=== PATIENT | female | born 1940 | race Caucasian/White ===

== ENCOUNTER → 2016-06-25 | Outpatient (CLI) | payer MEDICARE ==
[~2016-06-25] MED LIST: ACHD5005 PO; ACYC400T PO; ACYC400T21 PO; ALBU2.5V4 IH; ALPR0.254 PO; AMOX1TAB11 PO; AMOX500T2 PO; APIX2.5T PO; ASP81TEC PO; ASPI-587 PO; AZTH250C PO; BETH10TA PO; BMT1T PO; CALC-857 PO; CALC0.5C2 PO; CARV3.122 PO; CARV3.12T PO; CARV6.252 PO; CEFD300C3 PO; CHOL10003 PO; CLIN-81 PO; CLON0.1T PO; CLOP75TA28 PO; CRESTOR40 MG PO; CRV6.25T PO; DCS100C PO; DEXA4TAB PO; DILT120T11 PO; DILT180C54 PO; DILT240C54 PO; DXCC100C PO; EVER5TAB PO; EVER7.5T PO; EXEM25TA4 PO; FERR-57 PO; FULV250D2 IM; FURO20TA4 PO; FURO40SO5 PO; FURO40TA4 PO; GLIM2TAB PO; HYDR-3062 PO; HYDR-3714 PO; HYDR-3812 PO; HYDR-700 PO; HYDR1TAB66 PO; IRBE300T9 PO; ISOS30TA3 PO; LACT20SO2 PO; LEVO25TA5 PO; LINA5TAB PO; LISI5TAB PO; LORA10TA7 PO; LOSA100T7 PO; LVT.025T PO; MAGN250T35 PO; MAGN250T7 PO; MAGN400C PO; METO-333 PO; NCT14P TD; NICO1PAT5 TD; NITR0.4T SL; NITR0.4T39 SL; OMEP20CA12 PO; ONDA4TAB2 PO; ONDA8TAB12 PO; ONDA8TAB2 PO; ORPH100T PO; PALB125C PO; PALB75CA PO; PANT40TA PO; PANT40TA3 PO; POLY119P5 PO; POTA10TA6 PO; PRD10T PO; PRD5T PO; ROSU20TA PO; ROSU20TA14 PO; ROSU20TA28 PO; RT-ALBUINH IH; SEVE800T7 PO; SIMV40TA4 PO; SITA50TA PO; SLMFT1E INH; SODI88SP5 NS; TIMO5DRO5 OD; TIOT18CA IH; TIOT18CA2 IH; TML.25OP OD; TML.25OP OP; TRM50T PO; VERA80TA2 PO; [UNRECOGNIZED DRUG - CODE] TD
--- NOTE | 2016-06-25 15:53 | Diagnostic Imaging Report ---
PA and lateral views of the chest. COMPARISON: 05/06/2016. INDICATION: Cough and shortness of breath. COMPARISON: 05/06/2016. FINDINGS: The lungs are hyperinflated. There are diffuse interstitial thickened markings and pleural thickening in the bases and the left lung apex, stable from 05/06/2016 exam. The heart size is at the upper limits of normal. No definite superimposed airspace consolidation or new effusion identified. There is an infusion port with the tip at the upper right atrium level. Surgical clips in the left axilla seen. IMPRESSION: Chronic appearing interstitial thickening and pleural scarring most prominent in the left apex and the lung bases. Possible small pleural effusions also present. No definitive acute finding. Dictated by: Dictated on workstation # [id number]
== END ==
LOC: RAD 12:38
PROVIDERS: ATTEND Internal Medicine
DX: R05 Cough (principal); R06.02 Shortness of breath
CPT/HCPCS: 71020

== ENCOUNTER → 2016-06-25 | Outpatient (CLI) | payer MEDICARE ==
[2016-06-25 14:56] LABS: BASOPHILS % (AUTO) 1 % (0-10); EOSINOPHILS % (AUTO) 1 % (0-10); LYMPHOCYTES # (AUTO) 0.8 X 10^3 (1.0-4.0); LYMPHOCYTES % (AUTO) 24 % (12-44); MEAN CORPUSCULAR HEMOGLOBIN 31 PG (25-34); MEAN CORPUSCULAR HGB CONC 34 G/DL (32-36); MEAN CORPUSCULAR VOLUME 91 FL (80-99); MONOCYTES # (AUTO) 0.4 X 10^3 (0.0-1.0); MONOCYTES % (AUTO) 12 % (0-12); NEUTROPHILS % (AUTO) 62 % (42-75); PLATELET COUNT 144 10^3/uL (130-400); RED BLOOD COUNT 3.06 10^6/uL (4.35-5.85); RED CELL DISTRIBUTION WIDTH 18.2 % (10.0-14.5); WHITE BLOOD COUNT 3.2 10^3/uL (4.3-11.0)
[2016-06-25 15:32] LABS: CALCIUM 8.4 MG/DL (8.5-10.1); CREATININE SERUM 2.78 MG/DL (0.60-1.30); POTASSIUM 4.6 MMOL/L (3.6-5.0)
== END ==
LOC: LAB 14:23
PROVIDERS: ATTEND Internal Medicine
DX: I12.9 Hypertensive chronic kidney disease with stage 1 through stage 4 chronic kidney disease, or unspecified chronic kidney disease (principal); N18.4 Chronic kidney disease, stage 4 (severe); R05 Cough; R53.83 Other fatigue
CPT/HCPCS: 36591; 80048; 85025

== ENCOUNTER → 2016-07-05 | Outpatient (CLI) | payer MEDICARE ==
[2016-07-05 14:13] LABS: MEAN PLATELET VOLUME 8.6 FL (7.4-10.4); RED BLOOD COUNT 2.83 10^6/uL (4.35-5.85); RED CELL DISTRIBUTION WIDTH 17.9 % (10.0-14.5); WHITE BLOOD COUNT 4.3 10^3/uL (4.3-11.0)
[2016-07-05 14:57] LABS: ALBUMIN 3.3 G/DL (3.2-4.5); CALCIUM 8.5 MG/DL (8.5-10.1); CREATININE SERUM 2.84 MG/DL (0.60-1.30); PHOSPHORUS 3.6 MG/DL (2.3-4.7); POTASSIUM 4.7 MMOL/L (3.6-5.0)
[2016-07-05 15:00] LABS: PROTEIN/CREATININE RATIO 4.6
[2016-07-07 07:44] LABS: CALCIUM PARA THYROID HORMONE 8.5 mg/dL (8.5-10.5)
== END ==
LOC: LAB 13:34
PROVIDERS: ATTEND Internal Medicine Nephrology
DX: N18.4 Chronic kidney disease, stage 4 (severe) (principal); R73.01 Impaired fasting glucose; C50.919 Malignant neoplasm of unspecified site of unspecified female breast; E78.5 Hyperlipidemia, unspecified; N25.0 Renal osteodystrophy
CPT/HCPCS: 36415; 36591; 80061; 80069; 82306; 82570; 83036; 83970; 84156; 85027

== ENCOUNTER 2016-07-11 10:14 | Outpatient (RCR) | payer MEDICARE ==
[2016-04-25 11:50] LABS: BASOPHILS % (AUTO) 0 % (0-10); EOSINOPHILS % (AUTO) 2 % (0-10); LYMPHOCYTES # (AUTO) 0.6 X 10^3 (1.0-4.0); LYMPHOCYTES % (AUTO) 24 % (12-44); MEAN CORPUSCULAR HEMOGLOBIN 32 PG (25-34); MEAN CORPUSCULAR HGB CONC 33 G/DL (32-36); MEAN CORPUSCULAR VOLUME 96 FL (80-99); MEAN PLATELET VOLUME 9.1 FL (7.4-10.4); MONOCYTES # (AUTO) 0.5 X 10^3 (0.0-1.0); MONOCYTES % (AUTO) 19 % (0-12); NEUTROPHILS # (AUTO) 1.3 X 10^3 (1.8-7.8); NEUTROPHILS % (AUTO) 55 % (42-75); PLATELET COUNT 145 10^3/uL (130-400); RED BLOOD COUNT 2.43 10^6/uL (4.35-5.85); RED CELL DISTRIBUTION WIDTH 15.3 % (10.0-14.5); WHITE BLOOD COUNT 2.4 10^3/uL (4.3-11.0)
[2016-04-25 12:17] LABS: BILIRUBIN,TOTAL 0.4 MG/DL (0.1-1.0); CALCIUM 8.9 MG/DL (8.5-10.1); CREATININE SERUM 2.54 MG/DL (0.60-1.30); POTASSIUM 4.4 MMOL/L (3.6-5.0); TOTAL PROTEIN 5.6 G/DL (6.4-8.2)
[2016-05-14 13:39] LABS: BASOPHILS # (AUTO) 0.1 10^3/uL (0.0-0.1); BASOPHILS % (AUTO) 1 % (0-10); EOSINOPHILS % (AUTO) 1 % (0-10); LYMPHOCYTES # (AUTO) 0.9 X 10^3 (1.0-4.0); LYMPHOCYTES % (AUTO) 21 % (12-44); MEAN CORPUSCULAR HEMOGLOBIN 30 PG (25-34); MEAN CORPUSCULAR HGB CONC 33 G/DL (32-36); MEAN CORPUSCULAR VOLUME 92 FL (80-99); MEAN PLATELET VOLUME 9.8 FL (7.4-10.4); MONOCYTES # (AUTO) 0.4 X 10^3 (0.0-1.0); MONOCYTES % (AUTO) 9 % (0-12); NEUTROPHILS # (AUTO) 2.9 X 10^3 (1.8-7.8); NEUTROPHILS % (AUTO) 68 % (42-75); PLATELET COUNT 139 10^3/uL (130-400); RED BLOOD COUNT 4.11 10^6/uL (4.35-5.85); RED CELL DISTRIBUTION WIDTH 17.9 % (10.0-14.5); WHITE BLOOD COUNT 4.2 10^3/uL (4.3-11.0)
[2016-05-14 14:08] LABS: ALBUMIN 3.3 G/DL (3.2-4.5); CALCIUM 9.1 MG/DL (8.5-10.1); CREATININE SERUM 2.5 MG/DL (0.60-1.30); TOTAL PROTEIN 6.1 G/DL (6.4-8.2)
[2016-05-14 14:33] LABS: BILIRUBIN,TOTAL 0.4 MG/DL (0.1-1.0)
[2016-06-13 13:24] LABS: BASOPHILS % (AUTO) 1 % (0-10); EOSINOPHILS % (AUTO) 1 % (0-10); LYMPHOCYTES % (AUTO) 25 % (12-44); MEAN CORPUSCULAR HEMOGLOBIN 30 PG (25-34); MEAN CORPUSCULAR HGB CONC 33 G/DL (32-36); MEAN CORPUSCULAR VOLUME 91 FL (80-99); MEAN PLATELET VOLUME 9.2 FL (7.4-10.4); MONOCYTES # (AUTO) 0.3 X 10^3 (0.0-1.0); MONOCYTES % (AUTO) 7 % (0-12); NEUTROPHILS # (AUTO) 2.7 X 10^3 (1.8-7.8); NEUTROPHILS % (AUTO) 66 % (42-75); PLATELET COUNT 136 10^3/uL (130-400); RED BLOOD COUNT 3.22 10^6/uL (4.35-5.85); RED CELL DISTRIBUTION WIDTH 17.5 % (10.0-14.5); WHITE BLOOD COUNT 4.1 10^3/uL (4.3-11.0)
[2016-06-13 13:50] LABS: ALBUMIN 3.4 G/DL (3.2-4.5); BILIRUBIN,TOTAL 0.3 MG/DL (0.1-1.0); CALCIUM 8.7 MG/DL (8.5-10.1); CREATININE SERUM 3.09 MG/DL (0.60-1.30); POTASSIUM 4.4 MMOL/L (3.6-5.0); TOTAL PROTEIN 5.9 G/DL (6.4-8.2)
[~2016-07-11 10:14] MED LIST changes: +ACETAMINOPHEN 500 MG TAB (TYLENOL) CANCER CTR ONE; +FULVESTRANT 250 MG/5 ML SYR (CANCER CENTER) IM SCH; +NS (IVPB) CANCER CENTER 250 ML ONE; -POLY119P5 PO; +diphenhydrAMINE 25 MG TAB (BENADRYL) CANCER CENTER PO ONE
[2016-07-11 10:53] LABS: BASOPHILS # (AUTO) 0.1 10^3/uL (0.0-0.1); BASOPHILS % (AUTO) 2 % (0-10); EOSINOPHILS % (AUTO) 1 % (0-10); LYMPHOCYTES # (AUTO) 0.6 X 10^3 (1.0-4.0); LYMPHOCYTES % (AUTO) 21 % (12-44); MEAN CORPUSCULAR HGB CONC 33 G/DL (32-36); MEAN CORPUSCULAR VOLUME 94 FL (80-99); MEAN PLATELET VOLUME 9.2 FL (7.4-10.4); MONOCYTES # (AUTO) 0.3 X 10^3 (0.0-1.0); MONOCYTES % (AUTO) 11 % (0-12); NEUTROPHILS # (AUTO) 1.9 X 10^3 (1.8-7.8); NEUTROPHILS % (AUTO) 65 % (42-75); PLATELET COUNT 110 10^3/uL (130-400); RED BLOOD COUNT 2.66 10^6/uL (4.35-5.85); WHITE BLOOD COUNT 2.9 10^3/uL (4.3-11.0)
[2016-07-11 10:57] LABS: MEAN CORPUSCULAR HEMOGLOBIN 30 PG (25-34)
[2016-07-11] MEDS ORDERED: ACETAMINOPHEN 500 MG TAB (TYLENOL) CANCER CTR ONE (11:39)
[2016-07-11] MEDS ORDERED: diphenhydrAMINE 25 MG TAB (BENADRYL) CANCER CENTER PO ONE (11:39)
[2016-07-11] MEDS ORDERED: NS (IVPB) CANCER CENTER 250 ML ONE (11:39)
== END 2016-07-15 | disposition home or self-care (01) ==
LOC: ONC 10:14
PROVIDERS: ATTEND Internal Medicine Hematology & Oncology
DX: C79.51 Secondary malignant neoplasm of bone (principal); C78.7 Secondary malignant neoplasm of liver and intrahepatic bile duct; Z85.3 Personal history of malignant neoplasm of breast; J44.9 Chronic obstructive pulmonary disease, unspecified; I25.10 Atherosclerotic heart disease of native coronary artery without angina pectoris; I10 Essential (primary) hypertension; E78.5 Hyperlipidemia, unspecified; Z79.899 Other long term (current) drug therapy
CPT/HCPCS: 36430; 36591; 71250; 74176; 80048; 80053; 85025; 86300; 86850; 86900; 86901; 86920; 96402; 99213

== ENCOUNTER 2016-07-23 17:22 | Inpatient (IN) | payer MEDICARE ==
[~2016-07-23] VITALS: Ht 149.9 cm; Wt 50.1 kg
[~2016-07-23 17:22] MED LIST changes: -POLY119P5 PO
[2016-07-23 17:35] VITALS: BP 135/70
--- NOTE | 2016-07-23 17:40 | History & Physicial ---
History of Present Illness History of Present Illness Reason for visit/HPI Gabriella Day is a 76 year old lady who presented to cancer center with complaints of weakness, progressive cough, no fever and chronic but not increased dyspnea on 07/20/16. She also stated that she was having second thoughts about continuing on her current regimen of Faslodex and Ibrance. She had a Cat Scan Chest/abd/pelvis done today which showed bilteral lower lobe pneumonia. Patient states she was feeling so weak that she was going to have her family bring her to Emergency Dept later today if we had not called her to come in. Date of Admission Jul 23, 2016 at 17:24 I consulted on this patient on 07/23/16 17:40 Attending Physician Radha Fox MD Admitting Physician Cindy Quintana MD Consult Allergies and Home Medications Allergies Coded Allergies: ibuprofen (Verified Allergy, Intermediate, RASH, 04/04/15) allopurinol (Verified Allergy, Mild, 05/06/16) piperacillin (Verified Allergy, Mild, 05/06/16) tazobactam (Verified Allergy, Mild, 05/06/16) Home Medications Albuterol Sulfate 8.5 Gm Hfa.aer.ad 2 PUFF IH Q6H PRN PRN SHORTNESS OF BREATH ( Reported) Albuterol Sulfate 8.5 Gm Hfa.aer.ad 1-2 PUFF IH EVERY 4-6 HOURS PRN PRN SHORTNESS OF BREATH (Reported) Alprazolam 0.25 Mg Tablet 0.25 MG PO Q4H PRN PRN ANXIETY (Reported) Apixaban 2.5 Mg Tablet #30 2.5 MG PO BID Prescribed by: DESTINI MOREL on 05/10/16 1019 Calcitriol 0.5 Mcg Capsule 0.5 MCG PO DAILY (Reported) LAST FILLED 03/08/16 #30 Docusate Sodium 100 Mg Cap 200 MG PO EVERY 4-6 HOURS PRN PRN CONSTIPATION ( Reported) TAKES 2 (100MG) CAPSULES Fulvestrant 250 Mg/5 Ml Syringe 500 MG IM MONTHLY (Reported) Furosemide 40 Mg Tablet #30 40 MG PO DAILY Prescribed by: CINDY QUINTANA on 05/09/16 0842 Hydrocodone/Acetaminophen 1 Each Tablet 1 TAB PO Q4H PRN PRN PAIN (Reported) Levothyroxine Sodium 25 Mcg Tablet 25 MG PO DAILY (Reported) Magnesium Oxide 250 Mg Tablet 250 MG PO DAILY (Reported) Nitroglycerin 0.4 Mg Tab.subl 0.4 MG SL UD PRN PRN CHEST PAIN (Reported) Ondansetron HCl 8 Mg Tablet 8 MG PO Q8H PRN PRN NAUSEA/VOMITING (Reported) Palbociclib 125 Mg Capsule 125 MG PO DAILY (Reported) Take once daily for 21 days, off 7 then repeat Pantoprazole Sodium 40 Mg Tablet.dr 40 MG PO DAILY (Reported) Rosuvastatin Calcium 20 Mg Tablet 20 MG PO DAILY (Reported) LAST FILLED 03/08/16 #30 Sevelamer Carbonate 800 Mg Tablet 800 MG PO TID (Reported) LAST FILLED 03/08/16 #90 Timolol Maleate 5 Ml Drops 1 DROP OD BID (Reported) Tiotropium [place] 1 Inh Aerp 1 PUFF IH DAILY (Reported) LAST FILLED 03/08/16 #30 Past Whbvrfp-Ngbdoy-Dxlnae Hx Patient Social History Smoking Status: Former Smoker Former smoker/When Quit: Sep 08, 2012 Type Used: Cigarettes Recent Hopitalizations: Yes (Sapna Kern 3 weeks ago- blood transfusion.) Immunizations Up To Date Tetanus Booster (TDap): Unknown Date of Pneumonia Vaccine: Mar 10, 2015 Date of Influenza Vaccine: Feb 23, 2016 Seasonal Allergies Seasonal Allergies: No Surgeries HX Surgeries: Yes Surgeries: Breast, Eye Surgery Respiratory Hx Respiratory Disorders: Yes Respiratory Disorders: COPD Cardiovascular Hx Cardiovascular Disorders: Yes (CHF) Cardiac Disorders: Chronic Edema/Swelling, High Cholesterol, Hypertension Neurological Hx Neurological Disorders: No Reproductive System Hx Reproductive Disorders: No Sexually Transmitted Disease: No HIV/AIDS: No Female Reproductive Disorders: Denies Genitourinary Hx Genitourinary Disorders: Yes Genitourinary Disorders: Renal Failure, UTI-Chronic Gastrointestinal Hx Gastrointestinal Disorders: Yes Gastrointestinal Disorders: Gastroesophageal Reflux, Chronic Constipation, Hemorrhoids, Irritable Bowel Musculoskeletal Hx Musculoskeletal Disorders: Yes (LYMPHEDEMA OF LEFT ARM. ) Musculoskeletal Disorders: Arthritis Endocrine Hx Endocrine Disorders: Yes Endocrine Disorders: Hypothyroidsim HEENT HX ENT Disorders: Yes (BILATERAL CATARACT REMOVAL WITH PERSISTENT POOR VISION IN RIGHT EYE) HEENT Disorders: Cataract, Glaucoma Loss of Vision: Denies Hearing Impairment: Denies Cancer Hx Cancer: Yes Cancer: Lung, Breast Psychosocial Hx Psychiatric Problems: Yes Behavioral Health Disorders: Anxiety Integumentary HX Skin/Integumentary Disorder: No Blood Transfusions Hx Blood Disorders: Yes Adverse Reaction to a Blood Tr: No Family Medical History Significant Family History: Heart Disease, CAD Over 55 Years Old Family Hx: Abdominal aortic aneurysm 09 SISTER Arthritis 09 SISTER Asthma son Cardiovascular disease 03 FATHER 03 MOTHER 09 SISTER Completed stroke Congestive heart failure 03 FATHER 03 MOTHER Family history: Arthritis 09 SISTER Family history: Diabetes mellitus 03 FATHER (POSSIBLY) Family history: Hypertension 03 FATHER 03 MOTHER History of - anemia 09 SISTER Hypercholesterolemia 03 FATHER 03 MOTHER 09 SISTER Hypertension son Myocardial infarction 03 FATHER 03 MOTHER 09 SISTER Neoplasm 09 BROTHER 09 SISTER Severe allergy son No Family History of: AIDS Laclede's disease Alcoholism Alzheimer's disease Aphasia Cancer of mouth Cataracts Colon cancer Congenital disease Congenital heart disease Coronary thrombosis Cystic fibrosis Deafness or hearing loss Dementia Diabetes mellitus Drug abuse Dysphasia Fibrocystic disease of breast Gastroenteritis Glaucoma Headache disorder Hypercholesterolemia Infertility Kidney disease Not obtainable due to adoption Osteoporosis Parkinson's disease Prostate cancer Psychosocial problem Respiratory disorder Seizure disorder Thyroid disease Tuberculosis Visual disorder Constitutional: see HPI malaise weakness Respiratory: cough dyspnea on exertion phlegm (clear phlegm) short of breath Musculoskeletal: joint pain other (chronic lymphedema LUE) Physical Exam Vital Signs Vital Sign - Last 12Hours 07/23/16 17:35 Temp 99.8 Pulse 85 Resp 20 B/P 135/70 Pulse Ox 92 O2 Delivery Nasal Cannula O2 Flow Rate 3.00 Capillary Refill : General Appearance: Chronically ill HEENT: PERRL/EOMI Neck: Non Tender Supple Respiratory: Decreased Breath Sounds (few bibasilar crackles) Cardiovascular: Regular Rate, Rhythm No JVD Gastrointestinal: Normal Bowel Sounds No Organomegaly Non Tender Soft Rectal: Deferred Back: Normal Inspection No CVA Tenderness Extremity: Swelling (LUE lymphedema) Neurologic/Psychiatric: Alert Oriented x3 No Motor/Sensory Deficits Assessment/Plan Assessment and Plan 1. Pneumonia bilateral lower lobes; Start Levofloxacin and Vancomycin; She is allergic to piperacillin and tazobactam; 2. Metastatic Breast Cancer with mets to bones, lungs and pleura 3. CAD 4. Hypertension 5. Chronic Kidney disease 6. COPD 7. Consult Dr. Quintana, patient's PMD in am; RADHA FOX MD Jul 23, 2016 17:40
[2016-07-23] MEDS ORDERED: VANCOMYCIN IV ADD-VANTAGE 1,000 MG in SODIUM CHLORIDE (ADD-VANTAGE) 250 ML IV NR (18:00)
--- NOTE | 2016-07-23 18:02 | Diagnostic Imaging Report ---
INDICATION: Pneumonia, difficulty breathing. Comparison is made with prior examination from 06/25/16. FINDINGS: The heart size is stable. There is bilateral airspace disease. Some underlying central pulmonary venous congestion cannot be excluded. There are bilateral pleural effusions. There is no pneumothorax. IMPRESSION: Diffuse bilateral airspace disease with small bilateral pleural effusions. Some underlying central pulmonary venous congestion cannot be excluded. Dictated by: Dictated on workstation # [id number]
[2016-07-23] MEDS: CATHETER FLUSH 10 ML SYR IV PRN (18:29)
[2016-07-23] MEDS: NS IV 1000 ML 1,000 ML IV SCH (18:30)
[2016-07-23 19:49] VITALS: BP 124/53
[2016-07-23] MEDS ORDERED: LEVOFLOXACIN 750 MG/150 ML IV 150 ML IV NR (20:00)
[2016-07-23 21:00] LABS: BASOPHILS % (AUTO) 1 % (0-10); EOSINOPHILS # (AUTO) 0.1 10^3/uL (0.0-0.3); EOSINOPHILS % (AUTO) 2 % (0-10); LYMPHOCYTES # (AUTO) 0.7 X 10^3 (1.0-4.0); LYMPHOCYTES % (AUTO) 19 % (12-44); MEAN CORPUSCULAR HEMOGLOBIN 31 PG (25-34); MEAN CORPUSCULAR HGB CONC 33 G/DL (32-36); MEAN CORPUSCULAR VOLUME 93 FL (80-99); MEAN PLATELET VOLUME 9.1 FL (7.4-10.4); MONOCYTES # (AUTO) 0.3 X 10^3 (0.0-1.0); MONOCYTES % (AUTO) 9 % (0-12); NEUTROPHILS # (AUTO) 2.4 X 10^3 (1.8-7.8); NEUTROPHILS % (AUTO) 69 % (42-75); PLATELET COUNT 231 10^3/uL (130-400); RED BLOOD COUNT 2.67 10^6/uL (4.35-5.85); RED CELL DISTRIBUTION WIDTH 16.4 % (10.0-14.5); WHITE BLOOD COUNT 3.5 10^3/uL (4.3-11.0)
[2016-07-23 21:16] LABS: ALBUMIN 2.8 G/DL (3.2-4.5); BILIRUBIN,TOTAL 0.2 MG/DL (0.1-1.0); CALCIUM 8.1 MG/DL (8.5-10.1); CREATININE SERUM 2.67 MG/DL (0.60-1.30); MAGNESIUM 1.7 MG/DL (1.8-2.4); POTASSIUM 4.5 MMOL/L (3.6-5.0); TOTAL PROTEIN 5.6 G/DL (6.4-8.2)
[2016-07-23] MEDS ORDERED: FURO40TA4 PO (21:44)
[2016-07-23] MEDS ORDERED: FULVESTRANT IM SCH (21:58)
[2016-07-23] MEDS: SEVELAMER CARBONATE 800 MG PO SCH (21:58)
[2016-07-23] MEDS ORDERED: NON-FORMULARY MEDICATION 1 EA EA (Magnesium Oxide 250 MG) PO SCH (21:58)
[2016-07-23] MEDS ORDERED: CALCITRIOL 0.5 MCG PO SCH (21:58)
[2016-07-23] MEDS ORDERED: RX-HYDROCODONE/APAP 5/325 MG #4 TAB PK PO PRN (22:00)
[2016-07-23] MEDS ORDERED: RX-ALBUTEROL INHALER (VENTOLIN HFA) 18 GM IH PRN ×2 (22:00)
[2016-07-23] MEDS ORDERED: NITROGLYCERIN SUBLINGUAL 0.4 MG TAB (NITROSTAT) SL PRN (22:00)
[2016-07-23] MEDS ORDERED: DOCUSATE SODIUM 100 MG (COLACE) CAP PO PRN (22:00)
[2016-07-23] MEDS ORDERED: HYDROcodone/APAP 5 MG/325 MG (LORTAB) TAB ONE (22:19)
[2016-07-23] MEDS ORDERED: RT-ALBUTEROL SULF 2.5 MG/3 ML PRE-MIX VIAL INH PRN (22:45)
[2016-07-23 23:09] VITALS: BP 128/69
[2016-07-23 23:15] LABS: BILIRUBIN,URINE NEGATIVE (NEGATIVE); KETONES,URINE NEGATIVE (NEGATIVE); LEUKOCYTE ESTERASE ,URINE 3+ (NEGATIVE); NITRITE,URINE NEGATIVE (NEGATIVE); PH,URINE 6.5 (5-9); PROTEIN,URINE 3+ (NEGATIVE); UROBILINOGEN,URINE NORMAL (NORMAL)
[2016-07-23 23:24] LABS: SQUAMOUS EPITHELIAL CELL,UR 0-2 /HPF; WBC,URINE 25-50 /HPF
[2016-07-24 03:14] VITALS: BP 115/58
[2016-07-24 05:06] LABS: BASOPHILS % (AUTO) 1 % (0-10); EOSINOPHILS % (AUTO) 1 % (0-10); LYMPHOCYTES # (AUTO) 0.5 X 10^3 (1.0-4.0); LYMPHOCYTES % (AUTO) 17 % (12-44); MEAN CORPUSCULAR HEMOGLOBIN 31 PG (25-34); MEAN CORPUSCULAR HGB CONC 33 G/DL (32-36); MEAN CORPUSCULAR VOLUME 93 FL (80-99); MEAN PLATELET VOLUME 8.6 FL (7.4-10.4); MONOCYTES # (AUTO) 0.3 X 10^3 (0.0-1.0); MONOCYTES % (AUTO) 11 % (0-12); NEUTROPHILS # (AUTO) 1.9 X 10^3 (1.8-7.8); NEUTROPHILS % (AUTO) 70 % (42-75); PLATELET COUNT 212 10^3/uL (130-400); RED BLOOD COUNT 2.53 10^6/uL (4.35-5.85); RED CELL DISTRIBUTION WIDTH 16.6 % (10.0-14.5); WHITE BLOOD COUNT 2.8 10^3/uL (4.3-11.0)
[2016-07-24 05:22] LABS: CALCIUM 8.1 MG/DL (8.5-10.1); CREATININE SERUM 2.53 MG/DL (0.60-1.30); POTASSIUM 4.7 MMOL/L (3.6-5.0)
[2016-07-24 08:00] VITALS: BP 132/69
[2016-07-24] MEDS ORDERED: RT-ALBUTEROL SULF 2.5 MG/3 ML PRE-MIX VIAL INH SCH (08:00)
[2016-07-24] MEDS: PANTOPRAZOLE 40 MG (PROTONIX) TAB PO SCH (08:44)
[2016-07-24] MEDS: LEVOTHYROXINE 25 MCG (LEVOTHROID) TAB PO SCH (08:46)
[2016-07-24] MEDS ORDERED: FUROSEMIDE 40 MG (LASIX) TAB PO SCH (09:00)
[2016-07-24] MEDS: TIMOLOL MALEATE 0.5% 5 ML (TIMOPTIC) BTL OD SCH ×2 (09:00→20:31)
[2016-07-24] MEDS ORDERED: APIXABAN 2.5 MG (ELIQUIS) TABLET PO SCH (09:00)
[2016-07-24] MEDS ORDERED: ROSUVASTATIN 20 MG (CRESTOR) TABLET PO SCH (09:00)
--- NOTE | 2016-07-24 09:10 | Progress Note (SOAP) ---
Subjective Subjective/Events-last exam She complains of continue fatigue and report some hemorrhoidal bleeding; Eliquis is being held and we will recheck her hemoglobin this afternoon. Objective Exam Vital Signs Date Time Temp Pulse Resp B/P Pulse Ox O2 Delivery O2 Flow Rate FiO2 07/24/16 07:02 90 3.00 07/24/16 03:14 96.3 80 20 115/58 95 Nasal Cannula 3.00 07/23/16 23:09 97.9 87 16 128/69 95 Nasal Cannula 3.00 07/23/16 22:49 93 3.00 07/23/16 21:00 95 Nasal Cannula 3.00 07/23/16 19:49 98.8 83 16 124/53 98 Room Air 07/23/16 18:53 Nasal Cannula 3.00 07/23/16 17:35 99.8 85 20 135/70 92 Nasal Cannula 3.00 I & O 07/24/16 07:00 Intake Total 740 ml Output Total 650 ml Balance 90 ml Capillary Refill : Less Than 3 Seconds General Appearance: Chronically ill HEENT: PERRL/EOMI Pale Conjunctivae (R) Respiratory: Crackles Other (bibasilar crackles.) Cardiovascular: Regular Rate, Rhythm No JVD Gastrointestinal: normal bowel sounds non tender soft Extremity: Normal Inspection Non Tender No Calf Tenderness Neurologic/Psychiatric: Alert Oriented x3 No Motor/Sensory Deficits Normal Mood/Affect cokeman II-XII Norm as Tested Results Lab Laboratory Tests 07/23/16 20:45 07/24/16 05:00 Laboratory Tests 07/23/16 18:02: Lactic Acid Level 1.6 07/23/16 20:45: Alanine Aminotransferase (ALT/SGPT) 8, Albumin 2.8L, Alkaline Phosphatase 59, Anion Gap 9, Aspartate Amino Transf (AST/SGOT) 12, BUN/Creatinine Ratio 15, Basophils # (Auto) 0.0, Basophils (%) (Auto) 1, Blood Urea Nitrogen 40H, Calcium Level 8.1L, Carbon Dioxide Level 19L, Chloride Level 107, Creatinine 2.67H, Eosinophils # (Auto) 0.1, Eosinophils (%) (Auto) 2, Estimat Glomerular Filtration Rate 17, Glucose Level 101, Hematocrit 25L, Hemoglobin 8.2L, Lymphocytes # (Auto) 0.7L, Lymphocytes (%) (Auto) 19, Magnesium Level 1.7L, Mean Corpuscular Hemoglobin 31, Mean Corpuscular Hemoglobin Concent 33, Mean Corpuscular Volume 93, Mean Platelet Volume 9.1, Monocytes # (Auto) 0.3, Monocytes (%) (Auto) 9, Neutrophils # (Auto) 2.4, Neutrophils (%) (Auto) 69, Platelet Count 231, Potassium Level 4.5, Red Blood Count 2.67L, Red Cell Distribution Width 16.4H, Sodium Level 135, Total Bilirubin 0.2, Total Protein 5.6L, White Blood Count 3.5L 07/23/16 23:05: Urine Bacteria FEWH, Urine Bilirubin NEGATIVE, Urine Casts NONE, Urine Clarity CLEAR, Urine Color YELLOW, Urine Crystals NONE, Urine Culture Indicated YES, Urine Glucose (UA) NEGATIVE, Urine Ketones NEGATIVE, Urine Leukocyte Esterase 3+ H, Urine Mucus NEGATIVE, Urine Nitrite NEGATIVE, Urine Protein 3+H, Urine RBC NONE, Urine RBC (Auto) 1+H, Urine Specific [place] 1.010L, Urine Squamous Epithelial Cells 0-2, Urine Urobilinogen NORMAL, Urine WBC 25-50H, Urine pH 6.5 07/24/16 05:00: Anion Gap 9, BUN/Creatinine Ratio 15, Basophils # (Auto) 0.0, Basophils (%) ( Auto) 1, Blood Urea Nitrogen 39H, Calcium Level 8.1L, Carbon Dioxide Level 19L, Chloride Level 108H, Creatinine 2.53H, Eosinophils # (Auto) 0.0, Eosinophils (% ) (Auto) 1, Estimat Glomerular Filtration Rate 18, Glucose Level 96, Hematocrit 23L, Hemoglobin 7.8L, Lymphocytes # (Auto) 0.5L, Lymphocytes (%) (Auto) 17, Mean Corpuscular Hemoglobin 31, Mean Corpuscular Hemoglobin Concent 33, Mean Corpuscular Volume 93, Mean Platelet Volume 8.6, Monocytes # (Auto) 0.3, Monocytes (%) (Auto) 11, Neutrophils # (Auto) 1.9, Neutrophils (%) (Auto) 70, Platelet Count 212, Potassium Level 4.7, Red Blood Count 2.53L, Red Cell Distribution Width 16.6H, Sodium Level 136, White Blood Count 2.8L Assessment/Plan Assessment/Plan Assess & Plan/Chief Complaint 1. Pneumonia bilateral lower lobes; Continue Levofloxacin and Vancomycin; She is allergic to piperacillin and tazobactam; 2. Metastatic Breast Cancer with mets to bones, lungs and pleura 3. CAD 4. Hypertension 5. Chronic Kidney disease 6. COPD 7. Dr. Quintana's consultation noted and appreciated. Diagnosis/Problems: Clinical Quality Measures DVT/VTE Risk/Contraindication: Risk Factor Score Per Nursin RFS Level Per Nursing on Admit: 4+=Very High RADHA FOX MD Jul 24, 2016 09:10
[2016-07-24] MEDS: NS IV 1000 ML 1,000 ML IV SCH ×2 (09:26→10:24)
--- NOTE | 2016-07-24 10:34 | Consultation-Hospitalist ---
HPI History of Present Illness: HPI/Chief Complaint Mrs. Day is a frail 76-year-old white female who been feeling increasingly fatigued with shortness of breath progressively worse over the past several weeks. She is been on various forms of chemotherapy for the past several years for breast cancer widely metastatic to bone and lung currently on Faslodex and Ibrance. Over the past week sputum has become productive of brownish color with increased fatigue and anorexia. She underwent restaging CT chest abdomen and pelvis and was noted to have bibasilar pulmonary infiltrates compatible with pneumonia in addition to a qvecj-gb-aaragldv right pleural effusion. She also had a small left pleural effusion. She was admitted by her oncologist Dr. Andrews for treatment for presumed pneumonia. She is felt a little warm at times denies night sweats has had some occasional mild chills. She has not been around anyone that she is aware of who has been ill and reports no travel history. 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 She has a history of ischemic cardiomyopathy with chronic systolic heart failure and ejection fraction of 35 percent on last echocardiogram done in 2015. She has a history of paroxysmal atrial fibrillation as well as sick sinus syndrome but is particularly related to use of diltiazem and beta jay therapy. 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 Date Seen 07/24/16 Attending Physician Angela Andrews MD PCP Cindy Quintana MD Referring Physician Date of Admission Jul 23, 2016 at 17:24 Home Medications & Allergies Home Medications Reviewed patient Home Medication Reconciliation Form Allergies Coded Allergies: ibuprofen (Verified Allergy, Intermediate, RASH, 04/04/15) allopurinol (Verified Allergy, Mild, 05/06/16) piperacillin (Verified Allergy, Mild, 05/06/16) tazobactam (Verified Allergy, Mild, 05/06/16) Past Azdhtvy-Jlrkpt-Ynbgot Hx Patient Social History Alcohol Use: Denies Use Recreational Drug Use: No Smoking Status: Former Smoker Former smoker/When Quit: Sep 08, 2012 Type Used: Cigarettes Physical Abuse Screen: No Sexual Abuse: No Recent Foreign Travel: No Contact w/other who traveled: No Recent Hopitalizations: Yes (Sapna Kern 3 weeks ago- blood transfusion.) Recent Infectious Disease Expo: No Immunizations Up To Date Tetanus Booster (TDap): Unknown Date of Pneumonia Vaccine: Mar 10, 2015 Date of Influenza Vaccine: Feb 23, 2016 Seasonal Allergies Seasonal Allergies: No Surgeries HX Surgeries: Yes Surgeries: Breast, Eye Surgery Respiratory Hx Respiratory Disorders: Yes Respiratory Disorders: COPD Cardiovascular Hx Cardiovascular Disorders: Yes (CHF) Cardiac Disorders: Chronic Edema/Swelling, High Cholesterol, Hypertension Neurological Hx Neurological Disorders: No Reproductive System Hx Reproductive Disorders: No Sexually Transmitted Disease: No HIV/AIDS: No Female Reproductive Disorders: Denies Genitourinary Hx Genitourinary Disorders: Yes Genitourinary Disorders: Renal Failure, UTI-Chronic Gastrointestinal Hx Gastrointestinal Disorders: Yes Gastrointestinal Disorders: Gastroesophageal Reflux, Chronic Constipation, Hemorrhoids, Irritable Bowel Musculoskeletal Hx Musculoskeletal Disorders: Yes (LYMPHEDEMA OF LEFT ARM. ) Musculoskeletal Disorders: Arthritis Endocrine Hx Endocrine Disorders: Yes Endocrine Disorders: Hypothyroidsim HEENT HX ENT Disorders: Yes (BILATERAL CATARACT REMOVAL WITH PERSISTENT POOR VISION IN RIGHT EYE) HEENT Disorders: Cataract, Glaucoma Loss of Vision: Denies Hearing Impairment: Denies Cancer Hx Cancer: Yes Cancer: Lung, Breast Psychosocial Hx Psychiatric Problems: Yes Behavioral Health Disorders: Anxiety Integumentary HX Skin/Integumentary Disorder: No Blood Transfusions Hx Blood Disorders: Yes Adverse Reaction to a Blood Tr: No Family Medical History Significant Family History: Heart Disease, CAD Over 55 Years Old Family Hx: Abdominal aortic aneurysm 09 SISTER Arthritis 09 SISTER Asthma son Cardiovascular disease 03 FATHER 03 MOTHER 09 SISTER Completed stroke Congestive heart failure 03 FATHER 03 MOTHER Family history: Arthritis 09 SISTER Family history: Diabetes mellitus 03 FATHER (POSSIBLY) Family history: Hypertension 03 FATHER 03 MOTHER History of - anemia 09 SISTER Hypercholesterolemia 03 FATHER 03 MOTHER 09 SISTER Hypertension son Myocardial infarction 03 FATHER 03 MOTHER 09 SISTER Neoplasm 09 BROTHER 09 SISTER Severe allergy son No Family History of: AIDS Bullock's disease Alcoholism Alzheimer's disease Aphasia Cancer of mouth Cataracts Colon cancer Congenital disease Congenital heart disease Coronary thrombosis Cystic fibrosis Deafness or hearing loss Dementia Diabetes mellitus Drug abuse Dysphasia Fibrocystic disease of breast Gastroenteritis Glaucoma Headache disorder Hypercholesterolemia Infertility Kidney disease Not obtainable due to adoption Osteoporosis Parkinson's disease Prostate cancer Psychosocial problem Respiratory disorder Seizure disorder Thyroid disease Tuberculosis Visual disorder Review of Systems Constitutional: see HPI chillsNo diaphoresis, No dizziness, No fever, malaise weaknessNo weight gain, No weight loss, No other Respiratory: see HPI cough dyspnea on exertionNo hemoptysis, No orthopnea, phlegm short of breathNo stridor, No wheezing, No other Cardiovascular: No chest pain, No edema, No Hx of Intervention, No palpitations , No syncope, vascular heart diseas Physical Exam Physical Exam Vital Signs Vital Sign - Last 12Hours 07/23/16 17:35 Temp 99.8 Pulse 85 Resp 20 B/P 135/70 Pulse Ox 92 O2 Delivery Nasal Cannula O2 Flow Rate 3.00 Capillary Refill : Less Than 3 Seconds General Appearance: Chronically ill Other (fatigued) Respiratory: Chest Non Tender No Accessory Muscle Use Other (scattered rhonchi throughout with decreased breath sounds in the right base no wheezing is appreciated.) Cardiovascular: Regular Rate, Rhythm No Edema No Gallop No JVD No Murmur Gastrointestinal: Normal Bowel Sounds No Organomegaly No Pulsatile Mass Non Tender Soft Extremity: Other (on echo lymphedema of the left upper extremity mild violaceous erythema stable no tenderness some brawny induration baseline for this patient no lower extremity edema or right upper extremity edema is noted.) Neurologic/Psychiatric: Alert (alert but fatigued in appearance) Comments Laboratory Tests 07/23/16 20:45 07/24/16 05:00 Results Results/Procedures Lab Laboratory Tests 07/23/16 20:45 07/24/16 05:00 07/24/16 15:40 07/25/16 05:30 Assessment/Plan Admission Diagnosis 1. Acute COPD exacerbation secondary to bibasilar pneumonia bacterial etiology likely in an immune compromised individual prognosis is poor broad-spectrum antibiotic therapy has been initiated we'll continue to follow with you. 2. Adenocarcinoma the breasts while the metastatic to bone and lung. 3. Reactive depression secondary to 1 and 2 4. Anemia of chronic renal disease aggravated by 1 and 2 5. Paroxysmal atrial fibrillation with sick sinus syndrome. 6. Bright red blood per rectum aggravating anemia for this reason we'll have to hold Eliquis for now and monitor. Clinical Quality Measures DVT/VTE Risk/Contraindication: Risk Factor Score Per Nursin RFS Level Per Nursing on Admit: 4+=Very High CINDY QUINTANA MD Jul 24, 2016 10:34
[2016-07-24] MEDS ORDERED: CLON0.1T PO (11:03)
[2016-07-24] MEDS ORDERED: FURO40TA4 PO (11:03)
[2016-07-24] MEDS ORDERED: APIX2.5T PO (11:03)
[2016-07-24] MEDS ORDERED: PALB75CA PO (11:03)
[2016-07-24] MEDS ORDERED: DILT180C54 PO (11:03)
[2016-07-24] MEDS ORDERED: ALBU2.5V4 IH (11:03)
[2016-07-24] MEDS ORDERED: POLY119P5 PO (11:22)
[2016-07-24 12:00] VITALS: BP 150/71
[2016-07-24] MEDS ORDERED: PREPARATION H OINTMENT 57 GR TUBE PR PRN (13:45)
[2016-07-24] MEDS ORDERED: FUROSEMIDE 40 MG (LASIX) TAB PO PRN (14:45)
[2016-07-24] MEDS ORDERED: PATIENT MAY USE OWN MED,SINGLE MED PO SCH ×2 (14:45)
[2016-07-24] MEDS ORDERED: cloNIDine 0.1 MG (CATAPRES) TAB PO PRN (14:45)
[2016-07-24] MEDS: SEVELAMER CARBONATE 800 MG PO SCH (14:46)
[2016-07-24] MEDS: RT-ALBUTEROL SULF 2.5 MG/3 ML PRE-MIX VIAL IH PRN ×2 (15:28→15:31)
[2016-07-24] MEDS: DILTIAZEM 180 MG (CARDIZEM CD) CAP PO SCH (15:28)
[2016-07-24] MEDS: FUROSEMIDE 40 MG (LASIX) TAB PO PRN (15:29)
[2016-07-24 16:00] VITALS: BP 153/75
[2016-07-24] MEDS: ALPRAZolam 0.25 MG (XANAX) TAB PO PRN (16:13)
[2016-07-24 16:15] LABS: BASOPHILS % (AUTO) 1 % (0-10); EOSINOPHILS % (AUTO) 0 % (0-10); LYMPHOCYTES % (AUTO) 18 % (12-44); MEAN CORPUSCULAR HEMOGLOBIN 31 PG (25-34); MEAN CORPUSCULAR HGB CONC 34 G/DL (32-36); MEAN CORPUSCULAR VOLUME 93 FL (80-99); MEAN PLATELET VOLUME 9.2 FL (7.4-10.4); MONOCYTES # (AUTO) 0.5 X 10^3 (0.0-1.0); MONOCYTES % (AUTO) 10 % (0-12); NEUTROPHILS # (AUTO) 3.9 X 10^3 (1.8-7.8); NEUTROPHILS % (AUTO) 71 % (42-75); PLATELET COUNT 267 10^3/uL (130-400); RED BLOOD COUNT 3.08 10^6/uL (4.35-5.85); RED CELL DISTRIBUTION WIDTH 16.8 % (10.0-14.5); WHITE BLOOD COUNT 5.4 10^3/uL (4.3-11.0)
[2016-07-24] MEDS ORDERED: RT-ALBUTEROL SULF 2.5 MG/3 ML PRE-MIX VIAL INH PRN (16:45)
[2016-07-24] MEDS ORDERED: TROUGH ORDER-PHARMACY XX NR (17:00)
[2016-07-24] MEDS ORDERED: VANCOMYCIN 1 GM/NS 250 ML IVPB IV SCH ×2 (18:00)
[2016-07-24] MEDS: RT-ALBUTEROL SULF 2.5 MG/3 ML PRE-MIX VIAL INH SCH ×2 (19:13→21:30)
[2016-07-24 19:55] VITALS: BP 133/55
[2016-07-24] MEDS ORDERED: RT-ALBUTEROL SULF 2.5 MG/3 ML PRE-MIX VIAL IH PRN (20:00)
[2016-07-24] MEDS ORDERED: RX-ALBUTEROL INHALER (VENTOLIN HFA) 18 GM IH PRN (20:00)
[2016-07-24] MEDS: ROSUVASTATIN 20 MG (CRESTOR) TABLET PO SCH (20:31)
[2016-07-24] MEDS: APIXABAN 2.5 MG (ELIQUIS) TABLET PO SCH (20:32)
[2016-07-24] MEDS: SEVELAMER CARBONATE 800 MG TAB (RENVELA) NON-FORMULARY PO SCH (20:32)
[2016-07-25] VITALS (11 sets, daily range): BP systolic 114–175; BP diastolic 58–73
[2016-07-25] MEDS: ONDANSETRON 8 MG (ZOFRAN) ORAL DISSOLVE TAB PO PRN ×2 (00:05→20:54)
[2016-07-25] MEDS: RT-ALBUTEROL SULF 2.5 MG/3 ML PRE-MIX VIAL INH SCH ×6 (02:54→22:06)
[2016-07-25 05:51] LABS: BASOPHILS # (AUTO) 0.1 10^3/uL (0.0-0.1); BASOPHILS % (AUTO) 2 % (0-10); EOSINOPHILS % (AUTO) 1 % (0-10); LYMPHOCYTES # (AUTO) 0.4 X 10^3 (1.0-4.0); LYMPHOCYTES % (AUTO) 11 % (12-44); MEAN CORPUSCULAR HEMOGLOBIN 30 PG (25-34); MEAN CORPUSCULAR HGB CONC 32 G/DL (32-36); MEAN CORPUSCULAR VOLUME 94 FL (80-99); MEAN PLATELET VOLUME 9.2 FL (7.4-10.4); MONOCYTES # (AUTO) 0.3 X 10^3 (0.0-1.0); MONOCYTES % (AUTO) 8 % (0-12); NEUTROPHILS # (AUTO) 2.8 X 10^3 (1.8-7.8); NEUTROPHILS % (AUTO) 78 % (42-75); PLATELET COUNT 248 10^3/uL (130-400); RED BLOOD COUNT 2.48 10^6/uL (4.35-5.85); WHITE BLOOD COUNT 3.6 10^3/uL (4.3-11.0)
[2016-07-25 06:05] LABS: CALCIUM 8.3 MG/DL (8.5-10.1); CREATININE SERUM 2.48 MG/DL (0.60-1.30); POTASSIUM 4.8 MMOL/L (3.6-5.0)
[2016-07-25] MEDS: APIXABAN 2.5 MG (ELIQUIS) TABLET PO SCH (08:36)
[2016-07-25] MEDS: LEVOTHYROXINE 25 MCG (LEVOTHROID) TAB PO SCH (08:38)
[2016-07-25] MEDS: PANTOPRAZOLE 40 MG (PROTONIX) TAB PO SCH (08:38)
[2016-07-25] MEDS: TIMOLOL MALEATE 0.5% 5 ML (TIMOPTIC) BTL OD SCH ×2 (08:40→20:30)
[2016-07-25] MEDS: SEVELAMER CARBONATE 800 MG TAB (RENVELA) NON-FORMULARY PO SCH ×4 (08:40→20:38)
[2016-07-25] MEDS: MAGNESIUM OXIDE 250 MG PO SCH (08:41)
[2016-07-25] MEDS: CALCITRIOL 0.5 MCG PO SCH (08:41)
[2016-07-25] MEDS: DILTIAZEM 180 MG (CARDIZEM CD) CAP PO SCH (08:44)
[2016-07-25] MEDS ORDERED: guaiFENesin/DM (ROBITUSSIN DM) 10 ML UDC PO PRN (08:45)
--- NOTE | 2016-07-25 08:52 | Progress Note-Hospitalist ---
Subjective HPI/CC On Admission Mrs. Day is a frail 76-year-old white female who been feeling increasingly fatigued with shortness of breath progressively worse over the past several weeks. She is been on various forms of chemotherapy for the past several years for breast cancer widely metastatic to bone and lung currently on Faslodex and Ibrance. Over the past week sputum has become productive of brownish color with increased fatigue and anorexia. She underwent restaging CT chest abdomen and pelvis and was noted to have bibasilar pulmonary infiltrates compatible with pneumonia in addition to a [id number] right pleural effusion. She also had a small left pleural effusion. She was admitted by her oncologist Dr. Andrews for treatment for presumed pneumonia. She is felt a little warm at times denies night sweats has had some occasional mild chills. She has not been around anyone that she is aware of who has been ill and reports no travel history. 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 She has a history of ischemic cardiomyopathy with chronic systolic heart failure and ejection fraction of 35 percent on last echocardiogram done in 2016. She has a history of paroxysmal atrial fibrillation as well as sick sinus syndrome but is particularly related to use of diltiazem and beta jay therapy. 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 Date Seen 07/25/16 Subjective/Events-last exam After episode of tachycardia yesterday patient is able sleep last night and reports no further symptoms of heart pounding. She has known history of sick sinus syndrome. She's been intolerant to beta jay therapy due to bradycardia arrhythmia she has done better with diltiazem lower doses and when necessary clonidine she tends to get anxious and her blood pressure goes up. She is exhibited both episodes of PSVT and paroxysmal atrial fibrillation in the past. We had to hold L Kim due to anemia with bright red blood per rectum. She had a minimal amount of rectal bleeding with a small stool last night but nothing this morning reported. Objective Exam Vital Signs Vital Sign - Last 12Hours 07/23/16 17:35 Temp 99.8 Pulse 85 Resp 20 B/P 135/70 Pulse Ox 92 O2 Delivery Nasal Cannula O2 Flow Rate 3.00 Capillary Refill : Less Than 3 Seconds General Appearance: No Apparent Distress Chronically ill Respiratory: Other (Decreased breath sounds in right base elsewhere scattered rhonchi are noted. No wheezing is appreciated.) Cardiovascular: Regular Rate, Rhythm No Edema No Gallop No JVD No Murmur Gastrointestinal: Normal Bowel Sounds No Organomegaly No Pulsatile Mass Non Tender Soft Results/Procedures Lab Laboratory Tests 07/25/16 05:30 Assessment/Plan Assessment and Plan Assess & Plan/Chief Complaint 1. Acute COPD exacerbation secondary to by basilar pneumonia continue Levaquin and vancomycin blood cultures negative thus far. Patient had not been able to produce sputum for culture. 2. Bright red blood per rectum with anemia multifactorial predominantly due to anemia of chronic renal disease however will be holding eliquis for now and use SCDs for DVT prophylaxis. 3. Sick sinus syndrome with episode of tachyarrhythmia patient is had some asymptomatic sinus bradycardia overnight with resumption of diltiazem 180 mg we' ll continue as long as she remains asymptomatic. 4. Breast cancer widely metastatic to bone and lung. CINDY ORTIZ MD Jul 25, 2016 08:51
[2016-07-25] MEDS ORDERED: DILTIAZEM 180 MG (CARDIZEM CD) CAP PO SCH (09:00)
[2016-07-25] MEDS: NS IV 1000 ML 1,000 ML IV SCH ×2 (09:30→19:53)
--- NOTE | 2016-07-25 12:03 | Progress Note (SOAP) ---
Subjective Subjective/Events-last exam Patient reports having several episodes of blood noted in her stools. She has had recurrent episodes of hemorrhoidal bleeding. Colonoscopy done 3 years ago did reveal some polyps. Given patient's advanced /metastatic breast malignancy and recent bouts with hypoxemia and history of tachyarrhythmias we will defer aggressive evaluations/interventions at this time; but will discuss with Dr. Quintana. Overall she is feeling better today but continues to report cough, severe weakness and fatigue. Objective Exam Vital Signs Date Time Temp Pulse Resp B/P Pulse Ox O2 Delivery O2 Flow Rate FiO2 07/25/16 09:00 95 Nasal Cannula 3.00 07/25/16 07:15 90 4.00 07/25/16 04:00 97.5 86 18 132/61 96 Nasal Cannula 4.00 07/25/16 02:55 92 4.00 07/25/16 01:00 84 07/25/16 00:00 97.4 82 18 114/61 94 Nasal Cannula 4.00 07/24/16 21:31 92 4.00 07/24/16 20:59 Nasal Cannula 4.00 07/24/16 19:55 98.9 94 20 133/55 93 Nasal Cannula 4.00 07/24/16 19:14 98 4.00 07/24/16 19:00 110 07/24/16 16:16 88 07/24/16 16:00 98.9 121 18 153/75 99 NIV/Bilevel 50.00 07/24/16 15:43 132 25 98 50.00 07/24/16 15:31 88 3.00 I & O 07/25/16 07:00 Intake Total 865 ml Output Total 2000 ml Balance -1135 ml Capillary Refill : Less Than 3 Seconds General Appearance: Chronically ill HEENT: PERRL/EOMI Neck: Non Tender Supple Respiratory: Crackles Decreased Breath Sounds Cardiovascular: Regular Rate, Rhythm Extra Beats Gastrointestinal: normal bowel sounds non tender soft no organomegaly Extremity: Non Tender No Calf Tenderness No Pedal Edema Other (LUE Lymphedema; ) Neurologic/Psychiatric: Alert Oriented x3 No Motor/Sensory Deficits Normal Mood/Affect Results Lab Laboratory Tests 07/23/16 20:45 07/24/16 05:00 07/24/16 15:40 07/25/16 05:30 Laboratory Tests 07/24/16 15:40: Basophils # (Auto) 0.0, Basophils (%) (Auto) 1, Eosinophils # (Auto) 0.0, Eosinophils (%) (Auto) 0, Hematocrit 29L, Hemoglobin 9.6#L, Lymphocytes # (Auto ) 1.0, Lymphocytes (%) (Auto) 18, Mean Corpuscular Hemoglobin 31, Mean Corpuscular Hemoglobin Concent 34, Mean Corpuscular Volume 93, Mean Platelet Volume 9.2, Monocytes # (Auto) 0.5, Monocytes (%) (Auto) 10, Neutrophils # (Auto ) 3.9, Neutrophils (%) (Auto) 71, Platelet Count 267, Red Blood Count 3.08L, Red Cell Distribution Width 16.8H, White Blood Count 5.4 07/24/16 17:05: Vancomycin Level Trough 13.0 07/25/16 05:30: Basophils # (Auto) 0.1, Basophils (%) (Auto) 2, Eosinophils # (Auto) 0.0, Eosinophils (%) (Auto) 1, Hematocrit 23L, Hemoglobin 7.5#L, Lymphocytes # (Auto ) 0.4L, Lymphocytes (%) (Auto) 11L, Mean Corpuscular Hemoglobin 30, Mean Corpuscular Hemoglobin Concent 32, Mean Corpuscular Volume 94, Mean Platelet Volume 9.2, Monocytes # (Auto) 0.3, Monocytes (%) (Auto) 8, Neutrophils # (Auto ) 2.8, Neutrophils (%) (Auto) 78H, Platelet Count 248, Red Blood Count 2.48L, Red Cell Distribution Width 17.0H, White Blood Count 3.6L, Anion Gap 10, BUN/ Creatinine Ratio 15, Blood Urea Nitrogen 38H, Calcium Level 8.3L, Carbon Dioxide Level 18L, Chloride Level 111H, Creatinine 2.48H, Estimat Glomerular Filtration Rate 19, Glucose Level 90, Potassium Level 4.8, Sodium Level 139 Microbiology 07/23/16 Blood Culture - Preliminary, Resulted No growth 07/23/16 Urine Culture - Final, Complete Presumptive Angie Albicans Assessment/Plan Assessment/Plan Assess & Plan/Chief Complaint 1. Pneumonia bilateral lower lobes; Continue Levofloxacin and Vancomycin; She is allergic to piperacillin and tazobactam; 2. Metastatic Breast Cancer with mets to bones, lungs and pleura-- Left exudative pleural effusion much improved and CA27.29 decreased from 167 to 73.6 since Faslodex and Ibrance have been initiated. 3. Symptomatic Anemia-exacerbated by probable GI bleed; Hold Eliquis and transfuse 2 units PRBCs; 4. CAD 5. Hypertension 6. Chronic Kidney disease 7. COPD 8. Dr. Quintana's consultation noted and appreciated. Diagnosis/Problems: Clinical Quality Measures DVT/VTE Risk/Contraindication: Risk Factor Score Per Nursin RFS Level Per Nursing on Admit: 4+=Very High RADHA FOX MD Jul 25, 2016 12:03
[2016-07-25] MEDS ORDERED: UMECLIDINIUM BROMIDE (INCRUSE ELLIPTA) 7'S IH SCH (13:00)
[2016-07-25] MEDS ORDERED: TIOTROPIUM BROMIDE (SPIRIVA) 5'S INHALER IH SCH (13:00)
[2016-07-25] MEDS: ALPRAZolam 0.25 MG (XANAX) TAB PO PRN (14:54)
[2016-07-25] MEDS ORDERED: TROUGH ORDER-PHARMACY XX NR (17:00)
[2016-07-25] MEDS: FLUCONAZOLE 100 MG/50 ML IVPB IV SCH (19:53)
[2016-07-25] MEDS: ROSUVASTATIN 20 MG (CRESTOR) TABLET PO SCH ×2 (20:30→20:38)
[2016-07-25] MEDS: FUROSEMIDE 40 MG (LASIX) TAB PO PRN (20:38)
[2016-07-25] MEDS: HYDROcodone/APAP 5 MG/325 MG (LORTAB) TAB PO PRN (20:47)
[2016-07-25] MEDS: LEVOFLOXACIN 500 MG/D5W 100 ML (PRE-MIX) IV SCH (21:58)
[2016-07-25] MEDS ORDERED: FUROSEMIDE 40 MG/4 ML INJ (LASIX) IVP ONE (22:00)
[2016-07-26] VITALS (7 sets, daily range): BP systolic 105–144; BP diastolic 51–65
[2016-07-26] MEDS: RT-ALBUTEROL SULF 2.5 MG/3 ML PRE-MIX VIAL INH SCH ×6 (02:58→23:20)
[2016-07-26] MEDS: LEVOTHYROXINE 25 MCG (LEVOTHROID) TAB PO SCH (06:26)
[2016-07-26 06:27] LABS: BASOPHILS % (AUTO) 0 % (0-10); EOSINOPHILS % (AUTO) 0 % (0-10); LYMPHOCYTES # (AUTO) 0.4 X 10^3 (1.0-4.0); LYMPHOCYTES % (AUTO) 7 % (12-44); MEAN CORPUSCULAR HEMOGLOBIN 31 PG (25-34); MEAN CORPUSCULAR HGB CONC 34 G/DL (32-36); MEAN CORPUSCULAR VOLUME 92 FL (80-99); MONOCYTES # (AUTO) 0.4 X 10^3 (0.0-1.0); MONOCYTES % (AUTO) 7 % (0-12); NEUTROPHILS # (AUTO) 5.3 X 10^3 (1.8-7.8); NEUTROPHILS % (AUTO) 86 % (42-75); PLATELET COUNT 235 10^3/uL (130-400); RED BLOOD COUNT 3.46 10^6/uL (4.35-5.85); RED CELL DISTRIBUTION WIDTH 15.9 % (10.0-14.5); WHITE BLOOD COUNT 6.2 10^3/uL (4.3-11.0)
[2016-07-26 06:44] LABS: CALCIUM 8.6 MG/DL (8.5-10.1); CREATININE SERUM 3.06 MG/DL (0.60-1.30); POTASSIUM 5.2 MMOL/L (3.6-5.0)
[2016-07-26] MEDS: UMECLIDINIUM BROMIDE (INCRUSE ELLIPTA) 7'S IH SCH (06:59)
--- NOTE | 2016-07-26 09:34 | Progress Note (SOAP) ---
Subjective Subjective/Events-last exam Reports having another episode of dyspnea and bradycardia. Feeling better this morning however. The drop in hemoglobin from 13-10 this morning is likely due to with equilibration after transfusion; Objective Exam Vital Signs Date Time Temp Pulse Resp B/P Pulse Ox O2 Delivery O2 Flow Rate FiO2 07/26/16 07:00 85 07/26/16 06:58 5.00 07/26/16 06:50 93 5.00 07/26/16 04:00 96.4 50 18 107/56 100 NIV/Bilevel 50.00 07/26/16 02:58 47 28 97 60.00 07/26/16 01:00 49 07/26/16 00:15 73 23 92 70.00 07/26/16 00:00 96.5 54 24 105/51 96 NIV/Bilevel 50.00 07/25/16 22:06 69 25 91 65.00 07/25/16 20:00 94 NIV/Bilevel 07/25/16 20:00 99.2 88 22 175/73 93 NIV/Bilevel 50.00 07/25/16 19:41 75 26 94 60.00 07/25/16 19:20 92 3.00 07/25/16 19:00 99.3 88 20 175/73 93 07/25/16 19:00 113 07/25/16 16:35 99.3 83 16 147/68 07/25/16 16:21 97.9 90 18 142/63 99 07/25/16 16:00 97.7 92 20 142/63 99 NIV/Bilevel 50.00 07/25/16 15:13 96 18 94 50.00 07/25/16 14:54 91 07/25/16 14:51 92 4.00 07/25/16 13:50 98.3 80 18 138/65 97 3.00 07/25/16 13:35 98.9 83 18 129/58 3.00 07/25/16 12:03 97 4.00 07/25/16 12:00 98.9 83 24 129/58 95 Nasal Cannula 4.00 I & O 07/26/16 07:00 Intake Total 1590 ml Output Total 1150 ml Balance 440 ml Capillary Refill : Less Than 3 Seconds General Appearance: No Apparent Distress Chronically ill HEENT: PERRL/EOMI Neck: Non Tender Supple Respiratory: Crackles Decreased Breath Sounds Cardiovascular: No JVD Extra Beats Gastrointestinal: normal bowel sounds non tender soft Extremity: Other (left upper extremity lymphedema) Neurologic/Psychiatric: Alert Oriented x3 No Motor/Sensory Deficits Normal 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 II-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 Norm as Tested Results Lab Laboratory Tests 07/24/16 15:40 07/25/16 05:30 07/25/16 21:25 07/26/16 06:10 Laboratory Tests 07/25/16 17:30: Vancomycin Level Trough 22.6H 07/25/16 21:25: Hematocrit 40, Hemoglobin 13.2# 07/26/16 06:10: Hematocrit 32L, Hemoglobin 10.8L, Anion Gap 11, BUN/Creatinine Ratio 15, Basophils # (Auto) 0.0, Basophils (%) (Auto) 0, Blood Urea Nitrogen 47H, Calcium Level 8.6, Carbon Dioxide Level 17L, Chloride Level 110H, Creatinine 3.06H, Eosinophils # (Auto) 0.0, Eosinophils (%) (Auto) 0, Estimat Glomerular Filtration Rate 15, Glucose Level 107H, Lymphocytes # (Auto) 0.4L, Lymphocytes ( %) (Auto) 7L, Mean Corpuscular Hemoglobin 31, Mean Corpuscular Hemoglobin Concent 34, Mean Corpuscular Volume 92, Mean Platelet Volume 9.0, Monocytes # ( Auto) 0.4, Monocytes (%) (Auto) 7, Neutrophils # (Auto) 5.3, Neutrophils (%) ( Auto) 86H, Platelet Count 235, Potassium Level 5.2H, Red Blood Count 3.46L, Red Cell Distribution Width 15.9H, Sodium Level 138, White Blood Count 6.2 Microbiology 07/23/16 Blood Culture - Preliminary, Resulted No growth 07/23/16 Urine Culture - Final, Complete Presumptive Angie Albicans Assessment/Plan Assessment/Plan Assess & Plan/Chief Complaint 1. Pneumonia bilateral lower lobes; Continue Levofloxacin; She is allergic to piperacillin and tazobactam; 2. Metastatic Breast Cancer with mets to bones, lungs and pleura-- Left exudative pleural effusion much improved and CA27.29 decreased from 167 to 73.6 since Faslodex and Ibrance have been initiated. 3. Symptomatic Anemia-exacerbated by probable GI bleed; Eliquis is on hold. Hemoglobin 10.8 after receiving 2 units PRBCs; 4. Angie UTI--patient is receiving Diflucan 5. CAD 6. Hypertension 7. Chronic Kidney disease-creatinine increased to 3.06; we will DC vancomycin. 8. COPD 9. Dr. Quintana's consultation noted and appreciated. Diagnosis/Problems: Clinical Quality Measures DVT/VTE Risk/Contraindication: Risk Factor Score Per Nursin RFS Level Per Nursing on Admit: 4+=Very High RADHA FOX MD Jul 26, 2016 09:34
[2016-07-26] MEDS: DILTIAZEM 180 MG (CARDIZEM CD) CAP PO SCH (09:53)
[2016-07-26] MEDS: PANTOPRAZOLE 40 MG (PROTONIX) TAB PO SCH (09:54)
[2016-07-26] MEDS: SEVELAMER CARBONATE 800 MG TAB (RENVELA) NON-FORMULARY PO SCH ×3 (09:56→20:04)
[2016-07-26] MEDS: CALCITRIOL 0.5 MCG PO SCH (09:58)
[2016-07-26] MEDS: MAGNESIUM OXIDE 250 MG PO SCH (09:59)
[2016-07-26] MEDS: TIMOLOL MALEATE 0.5% 5 ML (TIMOPTIC) BTL OD SCH ×2 (10:01→20:05)
[2016-07-26] MEDS: FLUCONAZOLE 100 MG/50 ML IVPB IV SCH (10:03)
[2016-07-26] MEDS: ONDANSETRON 8 MG (ZOFRAN) ORAL DISSOLVE TAB PO PRN (11:18)
[2016-07-26] MEDS: ALPRAZolam 0.25 MG (XANAX) TAB PO PRN (13:33)
[2016-07-26] MEDS: PALBOCICLIB 75 MG PO SCH (15:24)
[2016-07-26] MEDS ORDERED: TROUGH ORDER-PHARMACY XX NR (17:00)
[2016-07-26] MEDS ORDERED: DOCUSATE SODIUM 100 MG (COLACE) CAP PO PRN (17:15)
[2016-07-26] MEDS ORDERED: VANCOMYCIN 1 GM/NS 250 ML IVPB IV SCH ×2 (18:00)
[2016-07-26] MEDS: HYDROcodone/APAP 5 MG/325 MG (LORTAB) TAB PO PRN (20:06)
[2016-07-26] MEDS: POLYETHYLENE GLYCOL 17 GM (MIRALAX) PACK PO SCH (20:17)
[2016-07-26] MEDS: ROSUVASTATIN 20 MG (CRESTOR) TABLET PO SCH (20:18)
--- NOTE | 2016-07-26 22:12 | Progress Note-Hospitalist ---
Subjective HPI/CC On Admission Mrs. Day is a frail 76-year-old white female who been feeling increasingly fatigued with shortness of breath progressively worse over the past several weeks. She is been on various forms of chemotherapy for the past several years for breast cancer widely metastatic to bone and lung currently on Faslodex and Ibrance. Over the past week sputum has become productive of brownish color with increased fatigue and anorexia. She underwent restaging CT chest abdomen and pelvis and was noted to have bibasilar pulmonary infiltrates compatible with pneumonia in addition to a [id number] right pleural effusion. She also had a small left pleural effusion. She was admitted by her oncologist Dr. Andrews for treatment for presumed pneumonia. She is felt a little warm at times denies night sweats has had some occasional mild chills. She has not been around anyone that she is aware of who has been ill and reports no travel history. 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 She has a history of ischemic cardiomyopathy with chronic systolic heart failure and ejection fraction of 35 percent on last echocardiogram done in 2016. She has a history of paroxysmal atrial fibrillation as well as sick sinus syndrome but is particularly related to use of diltiazem and beta jay therapy. 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 Date Seen 07/26/16 Subjective/Events-last exam Gabriella is a little less short of breath but still quite fatigued with scant sputum production. She denies chills or fever and did not require BiPAP last night. Minimal activity discontinue the chair or commode and back does wear her out. She is having intermittent nausea without vomiting. She denies abdominal pain and this noted no melena. Rectal bleeding is been minimal. Objective Exam Vital Signs Vital Sign - Last 12Hours 07/23/16 17:35 Temp 99.8 Pulse 85 Resp 20 B/P 135/70 Pulse Ox 92 O2 Delivery Nasal Cannula O2 Flow Rate 3.00 Capillary Refill : Less Than 3 Seconds General Appearance: Anxious Chronically ill Respiratory: No Accessory Muscle Use No Respiratory Distress Other (Worse rhonchi right greater than left without wheezing. Left chest anteriorly is less congested compared to yesterday.) Cardiovascular: Regular Rate, Rhythm No Edema No Gallop No JVD No Murmur Gastrointestinal: Normal Bowel Sounds No Organomegaly Non Tender Soft Extremity: Other (Left upper extremity lymphedema stable no lower extremity edema is noted.) Results/Procedures Lab Laboratory Tests 07/27/16 06:28 Assessment/Plan Assessment and Plan Assess & Plan/Chief Complaint 1. Acute COPD exacerbation secondary to by basilar pneumonia continue Levaquin and vancomycin blood cultures negative thus far. Patient had not been able to produce sputum for culture. 2. Bright red blood per rectum with anemia multifactorial predominantly due to anemia of chronic renal disease however will be holding eliquis for now and use SCDs for DVT prophylaxis. 3. Sick sinus syndrome with episode of tachyarrhythmia patient is had some asymptomatic sinus bradycardia overnight with resumption of diltiazem 180 mg we' ll continue as long as she remains asymptomatic. 4. Breast cancer widely metastatic to bone and lung. 5. Stage IV CRD increasing vancomycin level risk for MRSA low risk for progressive renal failure high will discontinue vancomycin. We'll continue Levaquin at reduce renal dose. CINDY ORTIZ MD Jul 26, 2016 22:12
[2016-07-27 00:55] VITALS: BP 113/56
[2016-07-27] MEDS: RT-ALBUTEROL SULF 2.5 MG/3 ML PRE-MIX VIAL INH SCH ×5 (03:05→18:34)
[2016-07-27 04:15] VITALS: BP 127/58
[2016-07-27 06:36] LABS: BASOPHILS % (AUTO) 1 % (0-10); EOSINOPHILS # (AUTO) 0.1 10^3/uL (0.0-0.3); EOSINOPHILS % (AUTO) 2 % (0-10); LYMPHOCYTES # (AUTO) 0.5 X 10^3 (1.0-4.0); LYMPHOCYTES % (AUTO) 10 % (12-44); MEAN CORPUSCULAR HEMOGLOBIN 31 PG (25-34); MEAN CORPUSCULAR HGB CONC 34 G/DL (32-36); MEAN CORPUSCULAR VOLUME 92 FL (80-99); MEAN PLATELET VOLUME 9.1 FL (7.4-10.4); MONOCYTES # (AUTO) 0.3 X 10^3 (0.0-1.0); MONOCYTES % (AUTO) 6 % (0-12); NEUTROPHILS # (AUTO) 4.2 X 10^3 (1.8-7.8); NEUTROPHILS % (AUTO) 81 % (42-75); PLATELET COUNT 233 10^3/uL (130-400); WHITE BLOOD COUNT 5.1 10^3/uL (4.3-11.0)
[2016-07-27] MEDS: UMECLIDINIUM BROMIDE (INCRUSE ELLIPTA) 7'S IH SCH (06:43)
[2016-07-27] MEDS: LEVOTHYROXINE 25 MCG (LEVOTHROID) TAB PO SCH (06:58)
[2016-07-27 07:11] LABS: CREATININE SERUM 3.04 MG/DL (0.60-1.30)
[2016-07-27] MEDS: FLUCONAZOLE 100 MG/50 ML IVPB IV SCH (09:02)
[2016-07-27] MEDS: TIMOLOL MALEATE 0.5% 5 ML (TIMOPTIC) BTL OD SCH ×2 (09:02→20:06)
[2016-07-27] MEDS: MAGNESIUM OXIDE 250 MG PO SCH (09:03)
[2016-07-27] MEDS: DILTIAZEM 180 MG (CARDIZEM CD) CAP PO SCH (09:04)
[2016-07-27] MEDS: SEVELAMER CARBONATE 800 MG TAB (RENVELA) NON-FORMULARY PO SCH ×3 (09:04→20:06)
[2016-07-27] MEDS: CALCITRIOL 0.5 MCG PO SCH (09:04)
[2016-07-27] MEDS: PANTOPRAZOLE 40 MG (PROTONIX) TAB PO SCH (09:04)
[2016-07-27] MEDS: PALBOCICLIB 75 MG PO SCH (09:06)
[2016-07-27] MEDS: ONDANSETRON 8 MG (ZOFRAN) ORAL DISSOLVE TAB PO PRN (10:21)
--- NOTE | 2016-07-27 10:48 | Progress Note (SOAP) ---
Subjective Subjective/Events-last exam Reports feeling fatigued and nauseated. Nausea noted after taking Diflucan. Objective Exam Vital Signs Date Time Temp Pulse Resp B/P Pulse Ox O2 Delivery O2 Flow Rate FiO2 07/27/16 10:29 91 4.00 07/27/16 06:41 96 07/27/16 06:41 96 5.00 07/27/16 04:15 97.0 77 18 127/58 94 Nasal Cannula 4.00 07/27/16 01:00 74 07/27/16 00:55 97.6 73 20 113/56 97 07/26/16 21:00 Nasal Cannula 4.00 07/26/16 19:53 98.5 90 20 139/65 94 07/26/16 19:37 92 5.00 07/26/16 19:00 86 07/26/16 17:37 98.0 85 20 144/65 94 07/26/16 17:00 98.0 85 20 144/65 94 07/26/16 14:02 91 5.00 07/26/16 13:00 100 07/26/16 13:00 100 07/26/16 12:00 97.2 84 24 134/62 95 NIV/Bilevel 50.00 I & O 07/27/16 07:00 Intake Total 2145 ml Output Total 2100 ml Balance 45 ml Capillary Refill : Less Than 3 Seconds General Appearance: Chronically ill HEENT: PERRL/EOMI Neck: Non Tender Respiratory: Crackles Decreased Breath Sounds Cardiovascular: Regular Rate, Rhythm Gastrointestinal: normal bowel sounds non tender soft Extremity: No Pedal Edema Other (LUE lymphedema) Neurologic/Psychiatric: Alert Oriented x3 No Motor/Sensory Deficits Results Lab Laboratory Tests 07/25/16 21:25 07/26/16 06:10 07/27/16 06:28 Laboratory Tests 07/26/16 11:17: Lab Scanned Report Transfusion Reaction Form 07/26/16 17:43: Vancomycin Level Trough 17.8 07/27/16 06:28: Anion Gap 12, BUN/Creatinine Ratio 17, Basophils # (Auto) 0.0, Basophils (%) ( Auto) 1, Blood Urea Nitrogen 53H, Calcium Level 9.0, Carbon Dioxide Level 18L, Chloride Level 106, Creatinine 3.04H, Eosinophils # (Auto) 0.1, Eosinophils (%) (Auto) 2, Estimat Glomerular Filtration Rate 15, Glucose Level 101, Hematocrit 35, Hemoglobin 11.8, Lymphocytes # (Auto) 0.5L, Lymphocytes (%) (Auto) 10L, Mean Corpuscular Hemoglobin 31, Mean Corpuscular Hemoglobin Concent 34, Mean Corpuscular Volume 92, Mean Platelet Volume 9.1, Monocytes # (Auto) 0.3, Monocytes (%) (Auto) 6, Neutrophils # (Auto) 4.2, Neutrophils (%) (Auto) 81H, Platelet Count 233, Potassium Level 5.0, Red Blood Count 3.80L, Red Cell Distribution Width 16.0H, Sodium Level 136, White Blood Count 5.1 Microbiology 07/23/16 Blood Culture - Preliminary, Resulted No growth 07/23/16 Urine Culture - Final, Complete Presumptive Angie Albicans Assessment/Plan Assessment/Plan Assess & Plan/Chief Complaint 1. Pneumonia bilateral lower lobes; Continue Levofloxacin for 7 days; She is allergic to piperacillin and tazobactam; 2. Metastatic Breast Cancer with mets to bones, lungs and pleura-- Left exudative pleural effusion much improved and CA27.29 decreased from 167 to 73.6 since Faslodex and Ibrance have been initiated. 3. Symptomatic Anemia-exacerbated by probable GI bleed; Eliquis is on hold. Hemoglobin 11.8 today; 4. Angie UTI--patien thas been treated with Diflucan. 5. CAD 6. Hypertension 7. Chronic Kidney disease-creatinine 3.04; 8. COPD 9. Physical Therapy requested. Diagnosis/Problems: Clinical Quality Measures DVT/VTE Risk/Contraindication: Risk Factor Score Per Nursin RFS Level Per Nursing on Admit: 4+=Very High RADHA FOX MD Jul 27, 2016 10:48
--- NOTE | 2016-07-27 11:35 | Physical Therapy Evaluation ---
PT Evaluation-General Medical Diagnosis Admission Date Jul 23, 2016 at 17:24 Medical Diagnosis: pneumonia Onset Date: Jul 23, 2016 Therapy Diagnosis Therapy Diagnosis: generalized weakness/debility Height/Weight Height (Feet): 4 Height (Inches): 11.00 Weight (Pounds): 109 Weight (Ounces): 9.0 Precautions Precautions/Isolations: Fall Prevention, Standard Precautions Referral Physician: Darryl Reason for Referral: Evaluation/Treatment Medical History Pertinent Medical History: Arthritis, CAD, COPD, GERD, Heart Failure, HTN, Hypothroidism, Renal Insufficiency Additional Medical History metastatic breast cancer to bone and lung Current History direct admit from clinic secondary to SOA Reviewed History: Yes Social History Home: Single Level Current Living Status: Children Prior/Core FIM Prior Level of Function Functional Jackson Measure 0=Not Assessed/NA 4=Minimal Assistance 1=Total Assistance 5=Supervision or Setup 2=Maximal Assistance 6=Modified Jackson 3=Moderate Assistance 7=Complete Jackson Bed Mobility: 6 Transfers (B,C,W/C) (FIM): 6 Gait: 6 uses cane, ambulates short distances only due to SOB PT Evaluation-Current Subjective Patient is in bed and states she isn't able to do much but agrees to PT. Pain Numeric Pain Scale: 0-No Pain Location: No Pain Reported Objective Patient Orientation: Normal For Age Problem Solving: Fair Attachments: Oxygen (4L NC) ROM/Strength ROM Lower Extremities bilateral LE WFL Strenght Lower Extremities bilateral LE 4-/5 grossly Integumentary/Posture Integumentary refer to nursing notes Bowel Incontinence: No Bladder Incontinence: No Posture WNL Neuromuscular (Tone, Coordination, Reflexes) grossly intact Sensory Vision: Wears Glasses Hearing: Functional Sensation Right Lower Extremit: Impaired Sensation Left Lower Extremity: Impaired Transfers Functional Jackson Measure 0=Not Assessed/NA 4=Minimal Assistance 1=Total Assistance 5=Supervision or Setup 2=Maximal Assistance 6=Modified Jackson 3=Moderate Assistance 7=Complete Jackson Transfers (B, C, W/C) (FIM): 5 Rollin Supine to/from Sit: 5 Sit to/from Stand: 5 Gait Mode of Locomotion: Walk Anticipated Mode of Locomotion: Walk Gait (FIM): 1 Distance (FIM): 1=up to 49 ft Distance: 10' Gait Level of Assist: 5 Gait Assistive Device: FWW Comments/Gait Description increase SOA with minimal activity; safe and functional gait sequence Balance Sitting Static: Normal Sitting Dynamic: Normal Standing Static: Normal Standing Dynamic: Normal Assessment/Needs 76 y.o. female, will benefit from short term skilled PT to address functional strength and mobility to improve current LOF. Patient desires to return to home with family from this hospital stay. Rehab Potential: Guarded Post Rehab Potential-Barriers: metastatic cancer PT Fdc Goals Fdc Goals PT Match Marker Goals Time Frame: Aug 03, 2016 Transfers (B,C,W/C) (FIM): 6 Gait (FIM): 2 Gait distance (FIM): 4=815-77 ft Distance: 75' Gait Level of Assist: 5 Gait Assistive Device: FWW PT Plan Problem List Problem List: Activity Tolerance, Functional Strength Treatment/Plan Treatment Plan: Continue Plan of Care Treatment Plan: Education, Functional Activity Alicia, Functional Strength, Gait , Safety, Therapeutic Exercise, Transfers Treatment Duration: Aug 03, 2016 # of days/week 5-6 Visits Per Week: 5-6 Pt/Family Agrees w/Plan: Yes Safety Risks/Education Patient Education: Safety Issues Teaching Recipient: Patient Teaching Methods: Discussion Response to Teaching: Verbalize Understanding Discharge Recommendations Therapy D/C Recommendations: Home w/ Family Support Time/GCodes Time In: 1105 Time Out: 1120 Total Billed Treatment Time: 15 Total Billed Treatment 1 visit EVLow 15 min G Codes Necessary: DELORES Cabrera PT Jul 27, 2016 11:35
[2016-07-27 12:00] VITALS: BP 127/58
--- NOTE | 2016-07-27 12:59 | Progress Note-Hospitalist ---
Subjective HPI/CC On Admission Mrs. Day is a frail 76-year-old white female who been feeling increasingly fatigued with shortness of breath progressively worse over the past several weeks. She is been on various forms of chemotherapy for the past several years for breast cancer widely metastatic to bone and lung currently on Faslodex and Ibrance. Over the past week sputum has become productive of brownish color with increased fatigue and anorexia. She underwent restaging CT chest abdomen and pelvis and was noted to have bibasilar pulmonary infiltrates compatible with pneumonia in addition to a [id number] right pleural effusion. She also had a small left pleural effusion. She was admitted by her oncologist Dr. Andrews for treatment for presumed pneumonia. She is felt a little warm at times denies night sweats has had some occasional mild chills. She has not been around anyone that she is aware of who has been ill and reports no travel history. 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 She has a history of ischemic cardiomyopathy with chronic systolic heart failure and ejection fraction of 35 percent on last echocardiogram done in 2016. She has a history of paroxysmal atrial fibrillation as well as sick sinus syndrome but is particularly related to use of diltiazem and beta jay therapy. 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 Date Seen 07/27/16 Subjective/Events-last exam Patient had nausea earlier she reports it happened after Diflucan did run in this is her last dose for Angie UTI. She denies dysuria or increased urinary frequency. After Zofran she is feeling better. She is still feeling quite weak but did not require BiPAP last night. She did cough up a rather large plug of nonbloody but purulent sputum. She's had no rectal bleeding the last 24 hours. She denies chills or fever and has had no night sweats. Objective Exam Vital Signs Vital Sign - Last 12Hours 07/23/16 17:35 Temp 99.8 Pulse 85 Resp 20 B/P 135/70 Pulse Ox 92 O2 Delivery Nasal Cannula O2 Flow Rate 3.00 Capillary Refill : Less Than 3 Seconds General Appearance: Chronically ill Respiratory: Chest Non Tender No Accessory Muscle Use Other (Diffuse rhonchi on right rhonchi in left base anteriorly left chest is clear) Cardiovascular: Regular Rate, Rhythm No Edema No Gallop No JVD No Murmur Gastrointestinal: Normal Bowel Sounds No Organomegaly Non Tender Soft Extremity: Other (Onychomycosis noted no sores are present no edema noted except for chronic left upper extremity lymphedema) Results/Procedures Lab Laboratory Tests 07/27/16 06:28 Assessment/Plan Assessment and Plan Assess & Plan/Chief Complaint 1. Acute COPD exacerbation secondary to by basilar pneumonia continue Levaquin. Cultures negative patient had been unable to produce sputum for culture. 2. Bright red blood per rectum has moderated with anemia multifactorial predominantly due to anemia of chronic renal disease however will be holding eliquis for now and use SCDs for DVT prophylaxis. 3. Sick sinus syndrome with episode of tachyarrhythmia patient is had some asymptomatic sinus bradycardia overnight with resumption of diltiazem 180 mg we' ll continue as long as she remains asymptomatic. 4. Breast cancer widely metastatic to bone and lung. 5. Stage IV CRD creatinine stable at 3 last 48 hours. 6. Onychomycosis patient unable to take care of her own nails will consult Dr. Forman for paring next week.. CNIDY ORTIZ MD Jul 27, 2016 12:59
--- NOTE | 2016-07-27 13:55 | Diagnostic Imaging Report ---
INDICATION: Dyspnea, followup infiltrates. DISCUSSION: Single portable upright view of the chest was obtained. Comparison 07/23/2016. No significant interval change. Small left pleural effusion is stable. Stable normal heart size. Right chest wall [id number] is stable. Postoperative changes are again noted within the left axilla. Bilateral mixed interstitial and alveolar opacities are not significantly changed. Findings are nonspecific and could represent pulmonary edema and/or infection. Component of underlying interstitial thickening from chronic lung disease also cannot be excluded. IMPRESSION: Stable chest. Dictated by: Dictated on workstation # [id number]
[2016-07-27 19:25] VITALS: BP 113/56
[2016-07-27] MEDS: LEVOFLOXACIN 500 MG/D5W 100 ML (PRE-MIX) IV SCH (20:05)
[2016-07-27] MEDS: POLYETHYLENE GLYCOL 17 GM (MIRALAX) PACK PO SCH (20:05)
[2016-07-27] MEDS: ROSUVASTATIN 20 MG (CRESTOR) TABLET PO SCH (20:05)
[2016-07-27] MEDS: CATHETER FLUSH 10 ML SYR IV PRN (20:07)
[2016-07-28] VITALS: BP 131/69
[2016-07-28] MEDS: HYDROcodone/APAP 5 MG/325 MG (LORTAB) TAB PO PRN ×2 (00:26→23:00)
[2016-07-28 04:00] VITALS: BP 117/57
[2016-07-28 05:03] LABS: BASOPHILS # (AUTO) 0.1 10^3/uL (0.0-0.1); BASOPHILS % (AUTO) 1 % (0-10); EOSINOPHILS # (AUTO) 0.1 10^3/uL (0.0-0.3); EOSINOPHILS % (AUTO) 2 % (0-10); LYMPHOCYTES # (AUTO) 0.5 X 10^3 (1.0-4.0); LYMPHOCYTES % (AUTO) 13 % (12-44); MEAN CORPUSCULAR HEMOGLOBIN 31 PG (25-34); MEAN CORPUSCULAR HGB CONC 33 G/DL (32-36); MEAN CORPUSCULAR VOLUME 93 FL (80-99); MONOCYTES # (AUTO) 0.3 X 10^3 (0.0-1.0); MONOCYTES % (AUTO) 6 % (0-12); NEUTROPHILS # (AUTO) 3.2 X 10^3 (1.8-7.8); NEUTROPHILS % (AUTO) 77 % (42-75); PLATELET COUNT 223 10^3/uL (130-400); RED BLOOD COUNT 3.42 10^6/uL (4.35-5.85); RED CELL DISTRIBUTION WIDTH 15.8 % (10.0-14.5); WHITE BLOOD COUNT 4.1 10^3/uL (4.3-11.0)
[2016-07-28 05:37] LABS: CALCIUM 8.5 MG/DL (8.5-10.1)
[2016-07-28 05:40] LABS: POTASSIUM 5.2 MMOL/L (3.6-5.0)
[2016-07-28] MEDS: LEVOTHYROXINE 25 MCG (LEVOTHROID) TAB PO SCH (06:30)
[2016-07-28] MEDS: RT-ALBUTEROL SULF 2.5 MG/3 ML PRE-MIX VIAL INH SCH ×4 (07:26→18:41)
[2016-07-28] MEDS: UMECLIDINIUM BROMIDE (INCRUSE ELLIPTA) 7'S IH SCH (07:30)
[2016-07-28 08:00] VITALS: BP 125/75
[2016-07-28] MEDS: PALBOCICLIB 75 MG PO SCH ×2 (09:00→13:19)
[2016-07-28] MEDS: TIMOLOL MALEATE 0.5% 5 ML (TIMOPTIC) BTL OD SCH ×2 (09:04→22:53)
[2016-07-28] MEDS: CALCITRIOL 0.5 MCG PO SCH (09:04)
[2016-07-28] MEDS: MAGNESIUM OXIDE 250 MG PO SCH (09:05)
[2016-07-28] MEDS: SEVELAMER CARBONATE 800 MG TAB (RENVELA) NON-FORMULARY PO SCH ×3 (09:05→22:50)
[2016-07-28] MEDS: PANTOPRAZOLE 40 MG (PROTONIX) TAB PO SCH (09:08)
[2016-07-28] MEDS: DILTIAZEM 180 MG (CARDIZEM CD) CAP PO SCH (09:08)
--- NOTE | 2016-07-28 09:17 | Physical Therapy Daily Note ---
PT Daily Note-Current Subjective Pt. in bed and agrees to sit up in chair this AM. She has no c/o pain but says she becomes SOA quickly with ambulation. Mental Status Patient Orientation: Normal For Age Attachments: Oxygen Transfers Functional [place] Measure 0=Not Assessed/NA 4=Minimal Assistance 1=Total Assistance 5=Supervision or Setup 2=Maximal Assistance 6=Modified [place] 3=Moderate Assistance 7=Complete IndependenceIRFPAI Quality Coding Scale 6 Independent with activity with or without an assistive device 5 Patient requires set up or clean up by helper. Patient completes activity by themselves 4 Supervision or touching assist (CGA). Hiram provide cues , steadying assist 3 The helper provides less than half the effort to complete the activity 2 The helper provides more than half the effort to complete the activity 1 Dependent. The helper does all the effort to complete an activity 7 Patient refused to complete or attempt activity 9 The patient did not perform the activity before the current illness or injury 88 Not attempted due to Medical conditions or safety concerns Transfers (B, C, W/C) (FIM): 5 Supine to/from Sit: 5 Sit to/from Stand: 5 Gait Training Gait (FIM): 1 Distance (FIM): 1=up to 49 ft Distance: 20 ft in room Gait Level of Assist: 5 Gait Persons Needed: 1 Gait Assistive Device: FWW pt. fatigues quickly and requests to return to chair after short bout of ambulation Treatments transfers, gait Assessment Current Status: Fair Progress Pt. is steady with mobility but fatigues very quickly ambulation, unable to increase ambulation distance beyond short bout in the room. Pt. up in bedside chair with call light, nurse aide present and all needs met. PT Business Process Specialist Goals Mcc Goals PT Mcc Goals Time Frame: Aug 03, 2016 Transfers (B,C,W/C) (FIM): 6 Gait (FIM): 2 Gait distance (FIM): 4=172-84 ft Distance: 75' Gait Level of Assist: 5 Gait Assistive Device: FWW PT Plan Treatment/Plan Treatment Plan: Continue Plan of Care Treatment Plan: Education, Functional Activity Alicia, Functional Strength, Gait , Safety, Therapeutic Exercise, Transfers Treatment Duration: Aug 03, 2016 Visits Per Week: 5-6 Time/GCodes Time In: 815 Time Out: 825 Total Billed Treatment Time: 10 Total Billed Treatment 1, FA 10' GLORIA BRYAN PT Jul 28, 2016 09:17
--- NOTE | 2016-07-28 11:42 | Progress Note-Hospitalist ---
Subjective HPI/CC On Admission Mrs. Day is a frail 76-year-old white female who been feeling increasingly fatigued with shortness of breath progressively worse over the past several weeks. She is been on various forms of chemotherapy for the past several years for breast cancer widely metastatic to bone and lung currently on Faslodex and Ibrance. Over the past week sputum has become productive of brownish color with increased fatigue and anorexia. She underwent restaging CT chest abdomen and pelvis and was noted to have bibasilar pulmonary infiltrates compatible with pneumonia in addition to a [id number] right pleural effusion. She also had a small left pleural effusion. She was admitted by her oncologist Dr. Andrews for treatment for presumed pneumonia. She is felt a little warm at times denies night sweats has had some occasional mild chills. She has not been around anyone that she is aware of who has been ill and reports no travel history. 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 She has a history of ischemic cardiomyopathy with chronic systolic heart failure and ejection fraction of 35 percent on last echocardiogram done in 2016. She has a history of paroxysmal atrial fibrillation as well as sick sinus syndrome but is particularly related to use of diltiazem and beta jay therapy. 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 Date Seen 07/28/16 Subjective/Events-last exam patient's feeling a little bit better today but complains primarily of vaginal itching and constipation Review of Systems Pulmonary: Cough Gastrointestinal: : Constipation Objective Exam Vital Signs Vital Sign - Last 12Hours 07/23/16 17:35 Temp 99.8 Pulse 85 Resp 20 B/P 135/70 Pulse Ox 92 O2 Delivery Nasal Cannula O2 Flow Rate 3.00 Capillary Refill : Less Than 3 Seconds General Appearance: Chronically ill HEENT: Normal ENT Inspection Neck: Supple Respiratory: Crackles Rhonci Cardiovascular: Regular Rate, Rhythm Systolic Murmur Gastrointestinal: Soft Extremity: Swelling (left arm) Neurologic/Psychiatric: Alert Oriented x3 Normal Mood/Affect Results/Procedures Lab Laboratory Tests 07/28/16 04:50 Assessment/Plan Assessment and Plan Assess & Plan/Chief Complaint 1. Acute COPD exacerbation secondary to by basilar pneumonia continue Levaquin. Cultures negative patient had been unable to produce sputum for culture. 2. Bright red blood per rectum has moderated with anemia multifactorial predominantly due to anemia of chronic renal disease however will be holding eliquis for now and use SCDs for DVT prophylaxis. 3. Sick sinus syndrome with episode of tachyarrhythmia patient is had some asymptomatic sinus bradycardia overnight with resumption of diltiazem 180 mg we' ll continue as long as she remains asymptomatic. 4. Breast cancer widely metastatic to bone and lung. 5. Stage IV CRD creatinine stable at 3 last 48 hours-stable but elevated potassium we'll continue to monitor 6. Onychomycosis patient unable to take care of her own nails will consult Dr. Forman for paring next week.. 7. vaginal itching we'll begin Lotrisone when necessary 8. Constipation Dulcolax when necessary Problem List CECILIA ANGELES MD Jul 28, 2016 11:41
[2016-07-28] MEDS ORDERED: BISACODYL 10 MG SUPP (DULCOLAX) PR PRN (11:45)
[2016-07-28 12:00] VITALS: BP 111/66
[2016-07-28] MEDS: BETAMETHASONE/CLOTRIM CREAM (LOTRISONE) 45 GM TP SCH ×2 (12:28→22:52)
[2016-07-28] MEDS: ONDANSETRON 8 MG (ZOFRAN) ORAL DISSOLVE TAB PO PRN (13:19)
--- NOTE | 2016-07-28 14:09 | Progress Note (SOAP) ---
Subjective Subjective/Events-last exam Patient sitting up in chair and has no new complaints except for some vaginal itching. Antifungal cream has been ordered by Dr. Saldana earlier today. Objective Exam Vital Signs Date Time Temp Pulse Resp B/P Pulse Ox O2 Delivery O2 Flow Rate FiO2 07/28/16 12:00 96.5 50 20 111/66 98 Nasal Cannula 4.00 07/28/16 11:37 95 4.00 07/28/16 09:00 Nasal Cannula 4.00 07/28/16 08:00 96.7 76 20 125/75 98 Nasal Cannula 4.00 07/28/16 07:26 91 4.00 07/28/16 04:00 97.1 68 19 117/57 96 Nasal Cannula 4.00 07/28/16 01:00 91 07/28/16 00:00 96.5 85 19 131/69 96 Nasal Cannula 4.00 07/27/16 20:00 Nasal Cannula 4.00 07/27/16 19:25 98.5 82 20 113/56 98 Nasal Cannula 4.00 07/27/16 19:00 91 07/27/16 18:34 94 4.00 I & O 07/28/16 07:00 Intake Total 1450 ml Output Total 1175 ml Balance 275 ml Capillary Refill : Less Than 3 Seconds General Appearance: No Apparent Distress Chronically ill HEENT: PERRL/EOMI Neck: Full Range of Motion Non Tender Respiratory: Crackles Decreased Breath Sounds Cardiovascular: Regular Rate, Rhythm No Gallop No JVD Gastrointestinal: normal bowel sounds non tender soft no pulsatile mass Neurologic/Psychiatric: Alert Oriented x3 No Motor/Sensory Deficits cosmetician II- XII Norm as Tested Results Lab Laboratory Tests 07/27/16 06:28 07/28/16 04:50 Laboratory Tests 07/28/16 04:50: Anion Gap 10, BUN/Creatinine Ratio 19, Basophils # (Auto) 0.1, Basophils (%) ( Auto) 1, Blood Urea Nitrogen 58H, Calcium Level 8.5, Carbon Dioxide Level 20L, Chloride Level 106, Creatinine 3.00H, Eosinophils # (Auto) 0.1, Eosinophils (%) (Auto) 2, Estimat Glomerular Filtration Rate 15, Glucose Level 104, Hematocrit 32L, Hemoglobin 10.6L, Lymphocytes # (Auto) 0.5L, Lymphocytes (%) (Auto) 13, Mean Corpuscular Hemoglobin 31, Mean Corpuscular Hemoglobin Concent 33, Mean Corpuscular Volume 93, Mean Platelet Volume 9.0, Monocytes # (Auto) 0.3, Monocytes (%) (Auto) 6, Neutrophils # (Auto) 3.2, Neutrophils (%) (Auto) 77H, Platelet Count 223, Potassium Level 5.2H, Red Blood Count 3.42L, Red Cell Distribution Width 15.8H, Sodium Level 136, White Blood Count 4.1L Microbiology 07/23/16 Blood Culture - Preliminary, Resulted No growth 07/23/16 Urine Culture - Final, Complete Presumptive Angie Albicans Radiology Chest x-ray single view AP/PA done 07/27/15: IMPRESSION: Stable chest. Assessment/Plan Assessment/Plan Assess & Plan/Chief Complaint 1. Pneumonia bilateral lower lobes; Continue Levofloxacin for 7 days; She is allergic to piperacillin and tazobactam; 2. Metastatic Breast Cancer with mets to bones, lungs and pleura-- Left exudative pleural effusion much improved and CA27.29 decreased from 167 to 73.6 since Faslodex and Ibrance have been initiated. 3. Symptomatic Anemia-improved posttransfusion. Hemoglobin 10.6 today; 4. Angie UTI--patient has been treated with Diflucan. 5. CAD 6. Hypertension 7. Chronic Kidney disease-creatinine 3.04; 8. COPD 9. Physical Therapy requested. Diagnosis/Problems: Clinical Quality Measures DVT/VTE Risk/Contraindication: Risk Factor Score Per Nursin RFS Level Per Nursing on Admit: 4+=Very High RADHA FOX MD Jul 28, 2016 14:08
[2016-07-28 16:00] VITALS: BP 126/60
[2016-07-28 20:00] VITALS: BP 102/62
[2016-07-28] MEDS: POLYETHYLENE GLYCOL 17 GM (MIRALAX) PACK PO SCH (22:52)
[2016-07-28] MEDS: ROSUVASTATIN 20 MG (CRESTOR) TABLET PO SCH (22:52)
[2016-07-29] VITALS: BP 180/43
[2016-07-29 07:00] LABS: BASOPHILS % (AUTO) 1 % (0-10); EOSINOPHILS # (AUTO) 0.1 10^3/uL (0.0-0.3); EOSINOPHILS % (AUTO) 3 % (0-10); LYMPHOCYTES # (AUTO) 0.5 X 10^3 (1.0-4.0); LYMPHOCYTES % (AUTO) 14 % (12-44); MEAN CORPUSCULAR HEMOGLOBIN 31 PG (25-34); MEAN CORPUSCULAR HGB CONC 33 G/DL (32-36); MEAN CORPUSCULAR VOLUME 94 FL (80-99); MEAN PLATELET VOLUME 9.2 FL (7.4-10.4); MONOCYTES # (AUTO) 0.2 X 10^3 (0.0-1.0); MONOCYTES % (AUTO) 7 % (0-12); NEUTROPHILS # (AUTO) 2.8 X 10^3 (1.8-7.8); NEUTROPHILS % (AUTO) 76 % (42-75); PLATELET COUNT 188 10^3/uL (130-400); RED BLOOD COUNT 3.39 10^6/uL (4.35-5.85); WHITE BLOOD COUNT 3.7 10^3/uL (4.3-11.0)
[2016-07-29] MEDS: RT-ALBUTEROL SULF 2.5 MG/3 ML PRE-MIX VIAL INH SCH ×4 (07:14→19:02)
[2016-07-29] MEDS: UMECLIDINIUM BROMIDE (INCRUSE ELLIPTA) 7'S IH SCH (07:14)
[2016-07-29 07:16] LABS: CALCIUM 8.6 MG/DL (8.5-10.1); CREATININE SERUM 3.33 MG/DL (0.60-1.30); POTASSIUM 5.5 MMOL/L (3.6-5.0)
[2016-07-29] MEDS: LEVOTHYROXINE 25 MCG (LEVOTHROID) TAB PO SCH (08:23)
[2016-07-29 08:30] VITALS: BP 129/60
[2016-07-29] MEDS: PANTOPRAZOLE 40 MG (PROTONIX) TAB PO SCH (09:14)
[2016-07-29] MEDS: DILTIAZEM 180 MG (CARDIZEM CD) CAP PO SCH (09:14)
[2016-07-29] MEDS: SEVELAMER CARBONATE 800 MG TAB (RENVELA) NON-FORMULARY PO SCH ×4 (09:15→22:16)
[2016-07-29] MEDS: TIMOLOL MALEATE 0.5% 5 ML (TIMOPTIC) BTL OD SCH ×2 (09:15→22:13)
[2016-07-29] MEDS: MAGNESIUM OXIDE 250 MG PO SCH (09:16)
[2016-07-29] MEDS: CALCITRIOL 0.5 MCG PO SCH (09:16)
[2016-07-29] MEDS: BETAMETHASONE/CLOTRIM CREAM (LOTRISONE) 45 GM TP SCH ×2 (09:17→22:13)
--- NOTE | 2016-07-29 11:26 | Progress Note-Hospitalist ---
Subjective HPI/CC On Admission Mrs. Day is a frail 76-year-old white female who been feeling increasingly fatigued with shortness of breath progressively worse over the past several weeks. She is been on various forms of chemotherapy for the past several years for breast cancer widely metastatic to bone and lung currently on Faslodex and Ibrance. Over the past week sputum has become productive of brownish color with increased fatigue and anorexia. She underwent restaging CT chest abdomen and pelvis and was noted to have bibasilar pulmonary infiltrates compatible with pneumonia in addition to a [id number] right pleural effusion. She also had a small left pleural effusion. She was admitted by her oncologist Dr. Andrews for treatment for presumed pneumonia. She is felt a little warm at times denies night sweats has had some occasional mild chills. She has not been around anyone that she is aware of who has been ill and reports no travel history. 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 She has a history of ischemic cardiomyopathy with chronic systolic heart failure and ejection fraction of 35 percent on last echocardiogram done in 2016. She has a history of paroxysmal atrial fibrillation as well as sick sinus syndrome but is particularly related to use of diltiazem and beta jay therapy. 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 Date Seen 07/29/16 Subjective/Events-last exam patient complains of nausea last evening and perhaps some mental confusion. Of note her GFR is down to 15. Creatinine is up to 3.3 and a potassium is 5.5. I did discuss with her the need for some gentle IV fluids keeping in mind her congestive failure. She is agreeable as she knows that she's been having trouble drinking as well Review of Systems Pulmonary: Dyspnea Cough Gastrointestinal: : Constipation: Nausea Neurological: : Weakness Objective Exam Vital Signs Vital Sign - Last 12Hours 07/23/16 17:35 Temp 99.8 Pulse 85 Resp 20 B/P 135/70 Pulse Ox 92 O2 Delivery Nasal Cannula O2 Flow Rate 3.00 Capillary Refill : Less Than 3 Seconds General Appearance: No Apparent Distress Chronically ill HEENT: Normal ENT Inspection Respiratory: Crackles (left greater than right base) Cardiovascular: Systolic Murmur Irregularly Irregular Gastrointestinal: Non Tender Soft Extremity: Non Tender No Calf Tenderness Neurologic/Psychiatric: Alert Oriented x3 No Motor/Sensory Deficits Normal Mood/Affect Skin: Pallor Results/Procedures Lab Laboratory Tests 07/29/16 06:50 Assessment/Plan Assessment and Plan Assess & Plan/Chief Complaint 1. Acute COPD exacerbation secondary to by basilar pneumonia continue Levaquin. Cultures negative patient had been unable to produce sputum for culture. 2. Bright red blood per rectum has moderated with anemia multifactorial predominantly due to anemia of chronic renal disease however will be holding eliquis for now and use SCDs for DVT prophylaxis. 3. Sick sinus syndrome with episode of tachyarrhythmia patient is had some asymptomatic sinus bradycardia overnight with resumption of diltiazem 180 mg we' ll continue as long as she remains asymptomatic. 4. Breast cancer widely metastatic to bone and lung. 5. Stage IV CRD creatinine worsening at 3.3 and elevated potassium we'll start IV fluids 6. Onychomycosis patient unable to take care of her own nails will consult Dr. Forman for paring next week.. 7. vaginal itching we'll begin Lotrisone when necessary 8. Constipation Dulcolax when necessary 9. leukopenia and anemia Problem List CECILIA ANGELES MD Jul 29, 2016 11:26 am
[2016-07-29] MEDS: 1/2 NS IV SOLUTION 1,000 ML IV SCH (11:50)
[2016-07-29 12:35] VITALS: BP 148/67
--- NOTE | 2016-07-29 12:40 | Progress Note (SOAP) ---
Subjective Subjective/Events-last exam Up in chair; States she had some dizziness earlier this morning but is feeling better after receiving Zofran; Objective Exam Vital Signs Date Time Temp Pulse Resp B/P Pulse Ox O2 Delivery O2 Flow Rate FiO2 07/29/16 11:09 96 4.00 07/29/16 08:30 97.3 81 16 129/60 97 Nasal Cannula 4.00 07/29/16 07:16 93 4.00 07/29/16 01:00 50 07/29/16 00:00 96.9 54 16 180/43 97 Nasal Cannula 4.00 07/28/16 21:33 98 4.00 07/28/16 21:00 Nasal Cannula 4.00 07/28/16 20:00 98.2 51 18 102/62 100 Nasal Cannula 4.00 07/28/16 19:00 56 07/28/16 18:41 91 4.00 07/28/16 16:00 96.3 52 22 126/60 100 Nasal Cannula 4.00 07/28/16 15:53 97 4.00 I & O 07/29/16 07:00 Intake Total 1080 ml Output Total 1020 ml Balance 60 ml Capillary Refill : Less Than 3 Seconds General Appearance: No Apparent Distress Chronically ill HEENT: PERRL/EOMI Neck: Non Tender Supple Respiratory: Chest Non Tender Crackles Decreased Breath Sounds Gastrointestinal: normal bowel sounds non tender soft no organomegaly Extremity: Normal Inspection Non Tender No Calf Tenderness Other (LUE lymphedema;) Neurologic/Psychiatric: Alert Oriented x3 No Motor/Sensory Deficits police and fire dispatcher II- XII Norm as Tested Results Lab Laboratory Tests 07/28/16 04:50 07/29/16 06:50 Laboratory Tests 07/29/16 06:50: Anion Gap 8, BUN/Creatinine Ratio 19, Basophils # (Auto) 0.0, Basophils (%) ( Auto) 1, Blood Urea Nitrogen 63H, Calcium Level 8.6, Carbon Dioxide Level 21, Chloride Level 107, Creatinine 3.33H, Eosinophils # (Auto) 0.1, Eosinophils (%) (Auto) 3, Estimat Glomerular Filtration Rate 13, Glucose Level 105, Hematocrit 32L, Hemoglobin 10.5L, Lymphocytes # (Auto) 0.5L, Lymphocytes (%) (Auto) 14, Mean Corpuscular Hemoglobin 31, Mean Corpuscular Hemoglobin Concent 33, Mean Corpuscular Volume 94, Mean Platelet Volume 9.2, Monocytes # (Auto) 0.2, Monocytes (%) (Auto) 7, Neutrophils # (Auto) 2.8, Neutrophils (%) (Auto) 76H, Platelet Count 188, Potassium Level 5.5H, Red Blood Count 3.39L, Red Cell Distribution Width 16.0H, Sodium Level 136, White Blood Count 3.7L Microbiology 07/23/16 Blood Culture - Final, Complete No growth 07/23/16 Urine Culture - Final, Complete Presumptive Angie Albicans Assessment/Plan Assessment/Plan Assess & Plan/Chief Complaint 1. Pneumonia bilateral lower lobes; Continue Levofloxacin for 7 days; She is allergic to piperacillin and tazobactam; 2. Metastatic Breast Cancer with mets to bones, lungs and pleura-- Left exudative pleural effusion much improved and CA27.29 decreased from 167 to 73.6 since Faslodex and Ibrance have been initiated. 3. Symptomatic Anemia-improved posttransfusion. Hemoglobin is stable; 4. Angie UTI--patient has been treated with Diflucan. 5. CAD 6. Hypertension 7. Chronic Kidney disease-creatinine 3.33; will give careful hydration since she is not drinking; Hyperkalemia-- may diminish with Lasix to be administered later after IV hydration. 8. COPD 9. Physical Therapy requested. Diagnosis/Problems: Clinical Quality Measures DVT/VTE Risk/Contraindication: Risk Factor Score Per Nursin RFS Level Per Nursing on Admit: 4+=Very High RADHA FOX MD Jul 29, 2016 12:40
[2016-07-29] MEDS: PALBOCICLIB 75 MG PO SCH (13:34)
[2016-07-29 16:19] VITALS: BP 136/65
[2016-07-29] MEDS: ONDANSETRON 8 MG (ZOFRAN) ORAL DISSOLVE TAB PO PRN (17:34)
[2016-07-29] MEDS ORDERED: FUROSEMIDE 40 MG/4 ML INJ (LASIX) IVP ONE (18:30)
[2016-07-29] MEDS: LEVOFLOXACIN 500 MG/D5W 100 ML (PRE-MIX) IV SCH (20:13)
[2016-07-29] MEDS: POLYETHYLENE GLYCOL 17 GM (MIRALAX) PACK PO SCH (22:12)
[2016-07-29] MEDS: ROSUVASTATIN 20 MG (CRESTOR) TABLET PO SCH (22:12)
[2016-07-29] MEDS: HYDROcodone/APAP 5 MG/325 MG (LORTAB) TAB PO PRN (22:13)
[2016-07-30] VITALS: BP 123/71
[2016-07-30] MEDS: 1/2 NS IV SOLUTION 1,000 ML IV SCH (06:42)
[2016-07-30 07:02] LABS: BASOPHILS % (AUTO) 1 % (0-10); EOSINOPHILS # (AUTO) 0.1 10^3/uL (0.0-0.3); EOSINOPHILS % (AUTO) 2 % (0-10); LYMPHOCYTES # (AUTO) 0.4 X 10^3 (1.0-4.0); LYMPHOCYTES % (AUTO) 13 % (12-44); MEAN CORPUSCULAR HEMOGLOBIN 31 PG (25-34); MEAN CORPUSCULAR HGB CONC 34 G/DL (32-36); MEAN CORPUSCULAR VOLUME 93 FL (80-99); MEAN PLATELET VOLUME 9.2 FL (7.4-10.4); MONOCYTES # (AUTO) 0.2 X 10^3 (0.0-1.0); MONOCYTES % (AUTO) 6 % (0-12); NEUTROPHILS # (AUTO) 2.7 X 10^3 (1.8-7.8); NEUTROPHILS % (AUTO) 79 % (42-75); PLATELET COUNT 177 10^3/uL (130-400); RED BLOOD COUNT 3.55 10^6/uL (4.35-5.85); RED CELL DISTRIBUTION WIDTH 15.8 % (10.0-14.5); WHITE BLOOD COUNT 3.5 10^3/uL (4.3-11.0)
[2016-07-30] MEDS: LEVOTHYROXINE 25 MCG (LEVOTHROID) TAB PO SCH (07:05)
[2016-07-30 07:12] LABS: CALCIUM 8.7 MG/DL (8.5-10.1); CREATININE SERUM 3.22 MG/DL (0.60-1.30); POTASSIUM 5.3 MMOL/L (3.6-5.0)
[2016-07-30] MEDS: RT-ALBUTEROL SULF 2.5 MG/3 ML PRE-MIX VIAL INH SCH ×3 (07:23→20:36)
[2016-07-30] MEDS: UMECLIDINIUM BROMIDE (INCRUSE ELLIPTA) 7'S IH SCH (07:27)
[2016-07-30 08:25] VITALS: BP 147/67
[2016-07-30] MEDS: DILTIAZEM 180 MG (CARDIZEM CD) CAP PO SCH (09:44)
[2016-07-30] MEDS: PANTOPRAZOLE 40 MG (PROTONIX) TAB PO SCH (09:44)
[2016-07-30] MEDS: MAGNESIUM OXIDE 250 MG PO SCH (09:45)
[2016-07-30] MEDS: SEVELAMER CARBONATE 800 MG TAB (RENVELA) NON-FORMULARY PO SCH ×3 (09:45→20:48)
[2016-07-30] MEDS: TIMOLOL MALEATE 0.5% 5 ML (TIMOPTIC) BTL OD SCH ×2 (09:46→20:47)
[2016-07-30] MEDS: CALCITRIOL 0.5 MCG PO SCH (09:47)
[2016-07-30] MEDS: BETAMETHASONE/CLOTRIM CREAM (LOTRISONE) 45 GM TP SCH ×2 (09:47→20:48)
--- NOTE | 2016-07-30 10:47 | Physical Therapy Daily Note ---
PT Daily Note-Current Subjective Patient agrees to PT. Patient c/o of dizziness. Pain Numeric Pain Scale: 0-No Pain Location: No Pain Reported Mental Status Patient Orientation: Normal For Age Attachments: Oxygen, IV Transfers Functional [place] Measure 0=Not Assessed/NA 4=Minimal Assistance 1=Total Assistance 5=Supervision or Setup 2=Maximal Assistance 6=Modified [place] 3=Moderate Assistance 7=Complete IndependenceIRFPAI Quality Coding Scale 6 Independent with activity with or without an assistive device 5 Patient requires set up or clean up by helper. Patient completes activity by themselves 4 Supervision or touching assist (CGA). [place] provide cues , steadying assist 3 The helper provides less than half the effort to complete the activity 2 The helper provides more than half the effort to complete the activity 1 Dependent. The helper does all the effort to complete an activity 7 Patient refused to complete or attempt activity 9 The patient did not perform the activity before the current illness or injury 88 Not attempted due to Medical conditions or safety concerns Transfers (B, C, W/C) (FIM): 5 Scootin Sit to/from Stand: 5 Gait Training Gait (FIM): 2 Distance (FIM): 9=482-07 ft Distance: 125' Gait Level of Assist: 5 Gait Assistive Device: FWW close SBA (gait belt is on patient) for safety. No noted LOB Assessment Patient remains up in recliner with needs met. Patient SAO2 maintained >90% with activity on 4L O2 NC. Patient plans dismissal this week to home with family. PT Audio Production Manager Goals Audio Production Manager Goals PT Usp Goals Time Frame: Aug 03, 2016 Transfers (B,C,W/C) (FIM): 6 Gait (FIM): 2 Gait distance (FIM): 9=586-47 ft Distance: 75' Gait Level of Assist: 5 Gait Assistive Device: FWW PT Plan Treatment/Plan Treatment Plan: Continue Plan of Care Treatment Plan: Education, Functional Activity Alicia, Functional Strength, Gait , Safety, Therapeutic Exercise, Transfers Treatment Duration: Aug 03, 2016 Visits Per Week: 5-6 Time/GCodes Time In: 1020 Time Out: 1035 Total Billed Treatment Time: 15 Total Billed Treatment 1 visit FA 15 min DELORES DORSEY PT Jul 30, 2016 10:47
[2016-07-30] MEDS: PALBOCICLIB 75 MG PO SCH (13:00)
--- NOTE | 2016-07-30 13:16 | Progress Note (SOAP) ---
Subjective Subjective/Events-last exam She reported an episode of morning weakness and clamminess than resolved after eating. Objective Exam Vital Signs Date Time Temp Pulse Resp B/P Pulse Ox O2 Delivery O2 Flow Rate FiO2 07/30/16 08:25 97.5 77 16 147/67 94 Nasal Cannula 3.00 07/30/16 08:08 Nasal Cannula 4.00 07/30/16 07:30 94 3.00 07/30/16 07:23 96 4.00 07/30/16 07:23 96 07/30/16 07:00 74 07/30/16 01:00 73 07/30/16 00:00 97.1 79 18 123/71 98 Nasal Cannula 4.00 07/29/16 21:00 Nasal Cannula 4.00 07/29/16 19:03 97 4.00 07/29/16 19:00 82 07/29/16 16:19 97.9 57 18 136/65 97 Nasal Cannula 4.00 07/29/16 14:42 95 4.00 I & O 07/30/16 07:00 Intake Total 2092 ml Output Total 3150 ml Balance -1058 ml Capillary Refill : Less Than 3 Seconds General Appearance: No Apparent Distress Chronically ill HEENT: PERRL/EOMI Neck: Full Range of Motion Normal Inspection Non Tender Supple Respiratory: Decreased Breath Sounds Cardiovascular: Regular Rate, Rhythm No JVD Gastrointestinal: non tender soft no organomegaly Extremity: Non Tender No Calf Tenderness No Pedal Edema Other (LUE lymphedema) Neurologic/Psychiatric: Alert Oriented x3 No Motor/Sensory Deficits medical cash poster II- XII Norm as Tested Results Lab Laboratory Tests 07/29/16 06:50 07/30/16 06:45 Laboratory Tests 07/30/16 06:45: Anion Gap 10, BUN/Creatinine Ratio 18, Basophils # (Auto) 0.0, Basophils (%) ( Auto) 1, Blood Urea Nitrogen 58H, Calcium Level 8.7, Carbon Dioxide Level 21, Chloride Level 105, Creatinine 3.22H, Eosinophils # (Auto) 0.1, Eosinophils (%) (Auto) 2, Estimat Glomerular Filtration Rate 14, Glucose Level 99, Hematocrit 33L, Hemoglobin 11.1L, Lymphocytes # (Auto) 0.4L, Lymphocytes (%) (Auto) 13, Mean Corpuscular Hemoglobin 31, Mean Corpuscular Hemoglobin Concent 34, Mean Corpuscular Volume 93, Mean Platelet Volume 9.2, Monocytes # (Auto) 0.2, Monocytes (%) (Auto) 6, Neutrophils # (Auto) 2.7, Neutrophils (%) (Auto) 79H, Platelet Count 177, Potassium Level 5.3H, Red Blood Count 3.55L, Red Cell Distribution Width 15.8H, Sodium Level 136, White Blood Count 3.5L Microbiology 07/23/16 Blood Culture - Final, Complete No growth 07/23/16 Urine Culture - Final, Complete Presumptive Angie Albicans Assessment/Plan Assessment/Plan Assess & Plan/Chief Complaint 1. Pneumonia bilateral lower lobes; Continue Levofloxacin for 7 days; She is allergic to piperacillin and tazobactam; 2. Metastatic Breast Cancer with mets to bones, lungs and pleura-- Left exudative pleural effusion much improved and CA27.29 decreased from 167 to 73.6 since Faslodex and Ibrance have been initiated. 3. Symptomatic Anemia-improved posttransfusion. Hemoglobin is stable; 4. Angie UTI--patient has been treated with Diflucan. 5. CAD 6. Hypertension 7. Chronic Kidney disease-creatinine 3.22; will give careful hydration and IV Lasix since she is not drinking well; Hyperkalemia-- did mildly diminish with Lasix which will again be administered later after IV hydration. 8. COPD 9. Physical Therapy requested. Diagnosis/Problems: Clinical Quality Measures DVT/VTE Risk/Contraindication: Risk Factor Score Per Nursin RFS Level Per Nursing on Admit: 4+=Very High RADHA FOX MD Jul 30, 2016 13:16
[2016-07-30 16:47] VITALS: BP 125/69
--- NOTE | 2016-07-30 17:19 | Podiatry Progress Note ---
Standard Progress Note Progress Notes/Assess & Plan Progress/Assessment & Plan Consult Dictated. Foot care given Final Diagnosis Onychomycosis Peripheral Neuropathy NAGE BARLOW DPM Jul 30, 2016 17:19
[2016-07-30] MEDS ORDERED: FUROSEMIDE 40 MG/4 ML INJ (LASIX) IVP NR (18:00)
[2016-07-30 20:00] VITALS: BP 126/75
[2016-07-30] MEDS: ROSUVASTATIN 20 MG (CRESTOR) TABLET PO SCH (20:47)
[2016-07-30] MEDS: HYDROcodone/APAP 5 MG/325 MG (LORTAB) TAB PO PRN (20:47)
[2016-07-30] MEDS: POLYETHYLENE GLYCOL 17 GM (MIRALAX) PACK PO SCH (20:48)
[2016-07-31] VITALS: BP 103/61
[2016-07-31] MEDS: 1/2 NS IV SOLUTION 1,000 ML IV SCH (02:44)
[2016-07-31] MEDS ORDERED: LEVOTHYROXINE 25 MCG (LEVOTHROID) TAB PO SCH (06:30)
[2016-07-31] MEDS: RT-ALBUTEROL SULF 2.5 MG/3 ML PRE-MIX VIAL INH SCH ×2 (06:34→14:56)
[2016-07-31] MEDS: UMECLIDINIUM BROMIDE (INCRUSE ELLIPTA) 7'S IH SCH (06:35)
[2016-07-31 06:43] LABS: BASOPHILS % (AUTO) 1 % (0-10); EOSINOPHILS # (AUTO) 0.1 10^3/uL (0.0-0.3); EOSINOPHILS % (AUTO) 3 % (0-10); LYMPHOCYTES # (AUTO) 0.5 X 10^3 (1.0-4.0); LYMPHOCYTES % (AUTO) 16 % (12-44); MEAN CORPUSCULAR HEMOGLOBIN 31 PG (25-34); MEAN CORPUSCULAR HGB CONC 34 G/DL (32-36); MEAN CORPUSCULAR VOLUME 92 FL (80-99); MEAN PLATELET VOLUME 9.3 FL (7.4-10.4); MONOCYTES # (AUTO) 0.2 X 10^3 (0.0-1.0); MONOCYTES % (AUTO) 6 % (0-12); NEUTROPHILS # (AUTO) 2.4 X 10^3 (1.8-7.8); NEUTROPHILS % (AUTO) 75 % (42-75); PLATELET COUNT 155 10^3/uL (130-400); RED BLOOD COUNT 3.63 10^6/uL (4.35-5.85); RED CELL DISTRIBUTION WIDTH 15.4 % (10.0-14.5); WHITE BLOOD COUNT 3.2 10^3/uL (4.3-11.0)
[2016-07-31 07:10] LABS: CALCIUM 9.2 MG/DL (8.5-10.1); CREATININE SERUM 3.17 MG/DL (0.60-1.30); POTASSIUM 5.3 MMOL/L (3.6-5.0)
[2016-07-31 08:00] VITALS: BP 133/63
--- NOTE | 2016-07-31 08:49 | Discharge Inst-Home Health ---
Discharge Inst-to Home Health Patient Instructions Patient Instructions/FollowUp: follow up with me in approximately 1 week with home care this week [place], [place] DISCHARGE ORDERS Allergies: Coded Allergies: ibuprofen (Verified Allergy, Intermediate, RASH, 04/04/15) allopurinol (Verified Allergy, Mild, 05/06/16) piperacillin (Verified Allergy, Mild, 05/06/16) tazobactam (Verified Allergy, Mild, 05/06/16) Height (Feet): 4 Height (Inches): 11.00 Weight (Pounds): 110 Weight (Ounces): 6.0 Weight (Kilograms): 54 Home Health Need/Face to Face Reason Pt Homebound chf deconditioning metastatic breast cancer I Have Seen Pt [id number]: Yes Date of Face to Face: Jul 31, 2016 Discharged To: Home Diagnosis/Conditions HH Order: see above plus chronic renal failure stage 4. Consult/Follow Up/New Order *I certify that based on my findings, the following services are medically necessary Home Health Services: Services: Nursing Services, Physical Therapy-Evaluate & Treat My clinical findings support the need for the above services; see Diagnosis. Dicharge Diet: ADA Diet, Low Sodium Diet Daily Activity as Tolerated: Yes I certify that this patient is under my care and that I, a nurse practitioner or a physician; a digital sales assistant working with me, had a face to face encounter that - meets the physician face to face encounter requirements with this patient as dated. CINDY ORTIZ MD Jul 31, 2016 08:49
[2016-07-31] MEDS: PANTOPRAZOLE 40 MG (PROTONIX) TAB PO SCH (09:23)
[2016-07-31] MEDS: MAGNESIUM OXIDE 250 MG PO SCH (09:23)
[2016-07-31] MEDS: DILTIAZEM 180 MG (CARDIZEM CD) CAP PO SCH (09:23)
[2016-07-31] MEDS: TIMOLOL MALEATE 0.5% 5 ML (TIMOPTIC) BTL OD SCH (09:23)
[2016-07-31] MEDS: BETAMETHASONE/CLOTRIM CREAM (LOTRISONE) 45 GM TP SCH (09:24)
[2016-07-31] MEDS: SEVELAMER CARBONATE 800 MG TAB (RENVELA) NON-FORMULARY PO SCH ×2 (09:24→13:08)
[2016-07-31] MEDS: CALCITRIOL 0.5 MCG PO SCH (09:24)
--- NOTE | 2016-07-31 11:06 | CONSULTATION REPORT ---
DATE OF CONSULTATION: 07/30/2016 REASON FOR CONSULT: Continuation of foot care. HISTORY OF PRESENT ILLNESS: This patient is well-known to my office. She has difficulty reaching for and caring for her feet. Due to her chemotherapy she suffers from neuropathy and the other day she was trying to cut her nails and cause some bleeding. She is most recently in the hospital due to pneumonia and has been presumably doing much better with her current treatment and is to be discharged tomorrow. PAST MEDICAL HISTORY: 1. 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 2. History of ischemic cardiomyopathy with ejection fracture of 35% on her last echocardiogram done in 2015. 3. She also has a history of atrial fibrillation. 4. Sick sinus syndrome. 5. Hypertension. 6. Controlled type 2 diabetes mellitus. 7. End-stage IV chronic renal disease. 8. Anemia. 9. As well as metastatic breast cancer. CURRENT MEDICATIONS: Listed on the patient's chart. ALLERGIES: 1. She is allergic to ALLOPURINOL 2. IBUPROFEN. 3. PIPERACILLIN. 4. TAZOBACTAM. SOCIAL HISTORY: The patient is a former tobacco smoker. She is currently living with her son in [place]. Was formally living alone in [place]. . This is a well-developed female in no apparent distress. Most recent vitals indicated she is currently afebrile with blood pressure of 125/69. She has had 2/4 dorsalis pedis pulse on the right, 0/4 dorsalis pedis pulse on the left, 0/4 posterior tibial pulse on the right inguinal, 1/4 posterior tibial pulse on the left. Capillary fill time is approximately 3 seconds to the hallux bilaterally. Cool skin, temperatures are noted to the toes bilaterally with no digital hair growth and thinning of the skin. NEUROLOGICALLY: She has intact protective sensation per 10 grams monofilament wire examination bilaterally, diminished vibratory sensation to the forefoot, as well as diminished deep tendon reflexes to the Achilles tendon bilaterally. Dermatologically: She has thick, yellow dystrophic toenails with subunguial debris x 10. She also has evidence of previous bleeding to the hyponychium of the left 4th digit nail plate. No erythema, no proximal streaking no gross signs of bacterial infection noted at this time. She has 4/5 muscle strength to the 4 major quadrants of the foot. ASSESSMENT: 1. Onychomycosis. 2. Peripheral neuropathy. PLAN: The toenails were debrided manually and mechanically. Betadine applied. Topical antibiotic was applied to the left 4th digit as a precaution. The patient was instructed to apply a topical antibiotic for the next 5 days for the same reason. She is welcome to follow-up in my office as necessary. Job ID: [id number] Dictated Date: 07/30/2016 17:36:11 Kettle Hand Date: 07/31/2016 10:54:10/he
--- NOTE | 2016-07-31 11:10 | Discharge Summary ---
Diagnosis/Chief Complaint Date of Admission Jul 23, 2016 at 17:24 Date of Discharge Discharge Date: Jul 31, 2016 Admission Diagnosis Admission Diagnosis 1. Pneumonia bilateral lower lobes; Start Levofloxacin and Vancomycin; She is allergic to piperacillin and tazobactam; 2. Metastatic Breast Cancer with mets to bones, lungs and pleura 3. CAD 4. Hypertension 5. Chronic Kidney disease 6. COPD 7. Consult Dr. Quintana, patient's PMD in am; Discharge Diagnosis 1. Pneumonia bilateral lower lobes; Continue Levofloxacin for 7 days; She is allergic to piperacillin and tazobactam; 2. Metastatic Breast Cancer with mets to bones, lungs and pleura-- Left exudative pleural effusion much improved and CA27.29 decreased from 167 to 73.6 since Faslodex and Ibrance have been initiated. 3. Symptomatic Anemia-improved posttransfusion. Hemoglobin is stable; 4. Angie UTI--patient has been treated with Diflucan. 5. CAD 6. Hypertension 7. Chronic Kidney disease 8. COPD Reason Hospital Visit Gabriella Day is a 76 year old lady who presented to cancer center with complaints of weakness, progressive cough, no fever and chronic but not increased dyspnea on 07/20/16. She also stated that she was having second thoughts about continuing on her current regimen of Faslodex and Ibrance. She had a Cat Scan Chest/abd/pelvis done today which showed bilteral lower lobe pneumonia. Patient states she was feeling so weak that she was going to have her family bring her to Emergency Dept later today if we had not called her to come in. Discharge Summary Hospital Course Hospital Course Patient received IV antibiotics, IV Vancomycin and IV Levofloxacin and clinically improved. Her anemia was associated with profound fatigue and increased SOB. These symptoms also improved after IV transfusion. Patient has COPD and had several episodes of shortness of breath which improved with buccal dilator therapy and management of her CHF with IV Lasix. He was stable for discharge on 07/31/15. I will see her in the clinic in [address] Kemp will see her in one week. Should patient have worsening symptoms of shortness of breath or no fever she will call for earlier appointment. Labs Laboratory Tests 07/29/16 06:50: Blood Urea Nitrogen 63H, Creatinine 3.33H, Hematocrit 32L, Hemoglobin 10.5L, Lymphocytes # (Auto) 0.5L, Neutrophils (%) (Auto) 76H, Potassium Level 5.5H, Red Blood Count 3.39L, Red Cell Distribution Width 16.0H, White Blood Count 3.7L 07/30/16 06:45: Blood Urea Nitrogen 58H, Creatinine 3.22H, Hematocrit 33L, Hemoglobin 11.1L, Lymphocytes # (Auto) 0.4L, Neutrophils (%) (Auto) 79H, Potassium Level 5.3H, Red Blood Count 3.55L, Red Cell Distribution Width 15.8H, White Blood Count 3.5L 07/30/16 17:59: Glucometer 122H 07/31/16 06:35: Blood Urea Nitrogen 55H, Creatinine 3.17H, Hematocrit 34L, Hemoglobin 11.4L, Lymphocytes # (Auto) 0.5L, Potassium Level 5.3H, Red Blood Count 3.63L, Red Cell Distribution Width 15.4H, White Blood Count 3.2L, Glucose Level 112H Procedures None. Discharge Physical Examination Allergies: Coded Allergies: ibuprofen (Verified Allergy, Intermediate, RASH, 04/04/15) allopurinol (Verified Allergy, Mild, 05/06/16) piperacillin (Verified Allergy, Mild, 05/06/16) tazobactam (Verified Allergy, Mild, 05/06/16) Vitals & I&Os Vital Signs Date Time Temp Pulse Resp B/P Pulse Ox O2 Delivery O2 Flow Rate FiO2 07/31/16 09:00 Nasal Cannula 4.00 07/31/16 07:00 67 07/31/16 06:37 94 07/31/16 00:00 96.6 18 103/61 General Appearance: Alert, Oriented X3 HEENT: PERRLA Cardiovascular: Regular Rate, Normal S1, Normal S2 Abdominal: Normal Bowel Sounds, Soft, No Tenderness Extremities: Other (LUE lymphedema;) Neuro: Normal Speech, Strength at 5/5 X4 Ext, Cranial Nerves 3-12 NL Psych/Mental Status: Mental Status NL Discharge Home Medications Reviewed and agree with Discharge Medication list on patient's Discharge Instruction sheet Instructions to Patient/Family Please see electonic discharge instructions given to patient. Clinical Quality Measures DVT/VTE Risk/Contraindication: Risk Factor Score Per Nursin RFS Level Per Nursing on Admit: 4+=Very High RADHA FOX MD Jul 31, 2016 11:10
--- NOTE | 2016-07-31 11:29 | Physical Therapy Daily Note ---
PT Daily Note-Current Subjective Patient is very agreeable to participate with PT. Patient states she will dismiss to home on this date. Pain Numeric Pain Scale: 0-No Pain Location: No Pain Reported Mental Status Patient Orientation: Normal For Age Attachments: Oxygen Transfers Functional [place] Measure 0=Not Assessed/NA 4=Minimal Assistance 1=Total Assistance 5=Supervision or Setup 2=Maximal Assistance 6=Modified [place] 3=Moderate Assistance 7=Complete IndependenceIRFPAI Quality Coding Scale 6 Independent with activity with or without an assistive device 5 Patient requires set up or clean up by helper. Patient completes activity by themselves 4 Supervision or touching assist (CGA). [place] provide cues , steadying assist 3 The helper provides less than half the effort to complete the activity 2 The helper provides more than half the effort to complete the activity 1 Dependent. The helper does all the effort to complete an activity 7 Patient refused to complete or attempt activity 9 The patient did not perform the activity before the current illness or injury 88 Not attempted due to Medical conditions or safety concerns Transfers (B, C, W/C) (FIM): 6 Scootin Sit to/from Stand: 6 Gait Training Gait (FIM): 6 Distance (FIM): 3=150 ft Distance: 150' Gait Level of Assist: 6 Gait Assistive Device: FWW assist for O2 tank Assessment Patient is currently at [facility] with gross motor skills and will dismiss to home on this date with goals met. PT Weapons Designer Goals Correction Goals PT Correction Goals Time Frame: Aug 03, 2016 Transfers (B,C,W/C) (FIM): 6 Gait (FIM): 2 Gait distance (FIM): 3=295-64 ft Distance: 75' Gait Level of Assist: 5 Gait Assistive Device: FWW PT Plan Treatment/Plan Treatment Plan: Discontinue PT, goals met Treatment Plan: Education, Functional Activity Alicia, Functional Strength, Gait , Safety, Therapeutic Exercise, Transfers Treatment Duration: Aug 03, 2016 Visits Per Week: 5-6 Time/GCodes Time In: 1040 Time Out: 1050 Total Billed Treatment Time: 10 Total Billed Treatment 1 visit FA 10min DELORES DORSEY PT Jul 31, 2016 11:29
[2016-07-31] MEDS: PALBOCICLIB 75 MG PO SCH (13:08)
== END 2016-07-31 16:11 | disposition home health service (06) | DRG 190 ==
LOC: 4TH 17:24
PROVIDERS: ADMIT Internal Medicine Hematology & Oncology; ATTEND Internal Medicine Hematology & Oncology
DX: J44.0 Chronic obstructive pulmonary disease with (acute) lower respiratory infection (principal); J15.9 Unspecified bacterial pneumonia; B37.49 Other urogenital candidiasis; J44.1 Chronic obstructive pulmonary disease with (acute) exacerbation; C78.2 Secondary malignant neoplasm of pleura; C78.00 Secondary malignant neoplasm of unspecified lung; C79.51 Secondary malignant neoplasm of bone; Z85.3 Personal history of malignant neoplasm of breast; Z66 Do not resuscitate; I13.0 Hypertensive heart and chronic kidney disease with heart failure and stage 1 through stage 4 chronic kidney disease, or unspecified chronic kidney disease; I50.22 Chronic systolic (congestive) heart failure; N18.4 Chronic kidney disease, stage 4 (severe); K62.5 Hemorrhage of anus and rectum; D63.1 Anemia in chronic kidney disease; I49.5 Sick sinus syndrome; I48.0 Paroxysmal atrial fibrillation; I25.10 Atherosclerotic heart disease of native coronary artery without angina pectoris; I25.5 Ischemic cardiomyopathy; E11.9 Type 2 diabetes mellitus without complications; I89.0 Lymphedema, not elsewhere classified; E03.9 Hypothyroidism, unspecified; G62.0 Drug-induced polyneuropathy; B35.1 Tinea unguium; K21.9 Gastro-esophageal reflux disease without esophagitis; F32.9 Major depressive disorder, single episode, unspecified; K64.9 Unspecified hemorrhoids; T45.1X5A Adverse effect of antineoplastic and immunosuppressive drugs, initial encounter; Z87.891 Personal history of nicotine dependence; Z79.818 Long term (current) use of other agents affecting estrogen receptors and estrogen levels; Z79.01 Long term (current) use of anticoagulants
CPT/HCPCS: 36415; 71010; 71250; 74176; 80048; 80053; 80202; 81000; 82962; 83605; 83735; 85014; 85018; 85025; 86850; 86900; 86901; 86920; 87040; 87088; 94640; 94660; 94760

== ENCOUNTER → 2016-07-23 | Outpatient (CLI) | payer MEDICARE ==
[~2016-07-23] MED LIST changes: -ACETAMINOPHEN 500 MG TAB (TYLENOL) CANCER CTR ONE; -FULVESTRANT 250 MG/5 ML SYR (CANCER CENTER) IM SCH; -NS (IVPB) CANCER CENTER 250 ML ONE; +POLY119P5 PO; -diphenhydrAMINE 25 MG TAB (BENADRYL) CANCER CENTER PO ONE
--- NOTE | 2016-07-23 16:13 | Diagnostic Imaging Report ---
PROCEDURE: CT chest, abdomen, and pelvis without contrast. TECHNIQUE: Multiple contiguous axial images were obtained through the chest, abdomen, and pelvis without the use of intravenous contrast. INDICATION: Breast cancer. COMPARISON: 05/14/2016 and other prior studies were reviewed. FINDINGS: CT CHEST: There is significant improvement in the nodule seen in the right upper lobe with a remaining 1 cm irregular density at this location, axial image #19. There is presumed metastasis with a nodule measuring 1.2 cm in the medial inferior right middle lobe, stable from the prior exams. There are increased areas of patchy consolidation in the right lower lobe and in the left lower lobe, mostly new from the previous study. There is a small to moderate right pleural effusion, increased from the previous study. A tiny effusion on the left side is seen. Background pulmonary emphysema changes are again noted. The heart size is normal. No mediastinal mass or significantly enlarged lymph node. No axillary lymph node enlargement is seen. Surgical clips in the left axilla are noted. The osseous structures demonstrate innumerable sclerotic osseous metastasis with no definite change. CT ABDOMEN AND PELVIS: The liver, gallbladder, spleen, and pancreas appear unremarkable for an unenhanced exam. There is thickening in the adrenal glands seen. Calcifications near the renal stephen bilaterally are favored to be vascular. No hydronephrosis is seen. The urinary bladder is significantly dilated with no focal solid mass identified. The uterus and adnexa appear grossly unremarkable. The abdominal aorta is 2 cm in caliber. There is improvement in the previously seen soft tissue thickening in the right rectus sheath, compatible with a resolving hematoma. There is no abdominal or pelvic soft tissue mass or significantly enlarged lymph node noted. The osseous structures demonstrate diffuse innumerable sclerotic metastasis with no definitive change. IMPRESSION: CT CHEST: 1. Bilateral lower lobe patchy areas of consolidation, increased from 05/14/2016, are likely related to pneumonia. 2. Stable 1.2 cm nodule in the medial inferior aspect of the right middle lobe. 3. Slightly increased small to moderate right pleural effusion. 4. Diffuse sclerotic metastasis with no definite change. CT ABDOMEN AND PELVIS: 1. Unchanged diffuse sclerotic metastasis. 2. Near complete resolution of the right rectus sheath hematoma seen on the prior exam. The findings were discussed with Ms. Richey, the oncology nurse with Dr. Andrews, by Dr. Pearson at the time of dictation. Dictated by: Dictated on workstation # [id number]
== END ==
LOC: RAD 15:20
PROVIDERS: ATTEND Internal Medicine Hematology & Oncology
DX: C50.112 Malignant neoplasm of central portion of left female breast (principal); C79.51 Secondary malignant neoplasm of bone
CPT/HCPCS: 71250; 74176

== ENCOUNTER → 2016-09-18 | Outpatient (CLI) | payer MEDICARE ==
[~2016-09-18] MED LIST changes: +POLY119P5 PO
--- NOTE | 2016-09-18 16:07 | Diagnostic Imaging Report ---
PROCEDURE: CT chest without contrast. TECHNIQUE: Multiple contiguous axial images were obtained through the chest without the use of intravenous contrast. INDICATION: Bone metastasis. Breast cancer. COMPARISON: 07/23/16. FINDINGS: CT chest: There is persistent 1.3 cm medial right middle lobe pulmonary nodule minimally more prominent compared to the prior exam concerning for metastasis. There are also bilateral patchy areas of consolidation, more in the left lung base with mixed solid consolidation and groundglass opacities with associated septal thickening. The minimal change from the prior study, in the setting of history of breast cancer is concerning for lymphangitic spread of tumor although this is typically a more diffuse process. Other considerations include chronic pneumonitis. Also a nodular component in the right lung base measuring 1.4 cm with irregular margins is seen. This could be also neoplastic. It appears minimally more prominent compared to the previous study. Small to moderate right pleural effusion is again seen without significant change. Adjacent right basilar atelectasis is noted. There are background prominent emphysema changes that is upper lobe predominant. There is skin thickening and asymmetric increased breast density in the left breast. Postsurgical changes in the upper outer aspect of the left breast and the axilla noted with multiple surgical clips in place. No significant lymphadenopathy in the mediastinum or axilla. The hilar vessels are not opacified on this unenhanced exam with no obvious hilar mass. The cardiac size is near the upper limits of normal. There is a port catheter in the cavoatrial junction. The osseous structures demonstrate diffuse sclerotic lesions with no obvious change from the prior exam. Sections in the upper abdomen demonstrate renal hilar calcifications, probably vascular. IMPRESSION: 1. Overall stable findings from 07/23/2016 with the minimal change in the consolidation in the lung bases more on the left with associated septal thickening may relate to neoplastic etiology or subacute pneumonitis. Nodular densities in the medial aspect of the right middle lobe and to the right lung base are minimally more prominent compared to the prior exam. 2. Stable small to moderate right pleural effusion. 3. Stable diffuse sclerotic bone metastasis. Dictated by: Dictated on workstation # [id number]
== END ==
LOC: RAD 13:10
PROVIDERS: ATTEND Nurse Practitioner Family
DX: C79.51 Secondary malignant neoplasm of bone (principal); C50.112 Malignant neoplasm of central portion of left female breast; J90 Pleural effusion, not elsewhere classified; R06.02 Shortness of breath
CPT/HCPCS: 71250

== ENCOUNTER → 2016-09-26 | Outpatient (CLI) | payer MEDICARE ==
[2016-09-26 12:24] LABS: ALBUMIN 3.3 G/DL (3.2-4.5); CALCIUM 9.1 MG/DL (8.5-10.1); CREATININE SERUM 2.76 MG/DL (0.60-1.30); PHOSPHORUS 3.3 MG/DL (2.3-4.7); POTASSIUM 5.3 MMOL/L (3.6-5.0)
[2016-09-26 13:09] LABS: PROTEIN/CREATININE RATIO 4.44
== END ==
LOC: LAB 11:34
PROVIDERS: ATTEND Internal Medicine Nephrology
DX: E78.5 Hyperlipidemia, unspecified (principal); N18.4 Chronic kidney disease, stage 4 (severe); C50.919 Malignant neoplasm of unspecified site of unspecified female breast; N25.0 Renal osteodystrophy; I25.10 Atherosclerotic heart disease of native coronary artery without angina pectoris; I50.9 Heart failure, unspecified; I13.10 Hypertensive heart and chronic kidney disease without heart failure, with stage 1 through stage 4 chronic kidney disease, or unspecified chronic kidney disease
CPT/HCPCS: 80061; 80069; 82306; 82570; 83970; 84156

== ENCOUNTER 2016-10-03 13:20 | Outpatient (RCR) | payer MEDICARE ==
[2016-07-18 13:29] LABS: BASOPHILS % (AUTO) 1 % (0-10); EOSINOPHILS % (AUTO) 1 % (0-10); LYMPHOCYTES # (AUTO) 0.6 X 10^3 (1.0-4.0); LYMPHOCYTES % (AUTO) 18 % (12-44); MEAN CORPUSCULAR HEMOGLOBIN 31 PG (25-34); MEAN CORPUSCULAR HGB CONC 33 G/DL (32-36); MEAN CORPUSCULAR VOLUME 92 FL (80-99); MEAN PLATELET VOLUME 8.7 FL (7.4-10.4); MONOCYTES # (AUTO) 0.7 X 10^3 (0.0-1.0); MONOCYTES % (AUTO) 23 % (0-12); NEUTROPHILS # (AUTO) 1.8 X 10^3 (1.8-7.8); NEUTROPHILS % (AUTO) 57 % (42-75); PLATELET COUNT 157 10^3/uL (130-400); RED BLOOD COUNT 3.08 10^6/uL (4.35-5.85); RED CELL DISTRIBUTION WIDTH 17.4 % (10.0-14.5); WHITE BLOOD COUNT 3.2 10^3/uL (4.3-11.0)
[2016-07-18 14:04] LABS: ALBUMIN 3.3 G/DL (3.2-4.5); BILIRUBIN,TOTAL 0.3 MG/DL (0.1-1.0); CALCIUM 8.7 MG/DL (8.5-10.1); CREATININE SERUM 2.86 MG/DL (0.60-1.30); POTASSIUM 5.1 MMOL/L (3.6-5.0); TOTAL PROTEIN 6.4 G/DL (6.4-8.2)
[2016-07-18 14:29] LABS: THYROID STIMULATING HORMONE 5.67 UIU/ML (0.35-4.94)
[2016-08-08 14:17] LABS: BASOPHILS # (AUTO) 0.1 10^3/uL (0.0-0.1); BASOPHILS % (AUTO) 2 % (0-10); EOSINOPHILS # (AUTO) 0.1 10^3/uL (0.0-0.3); EOSINOPHILS % (AUTO) 2 % (0-10); LYMPHOCYTES # (AUTO) 0.7 X 10^3 (1.0-4.0); LYMPHOCYTES % (AUTO) 24 % (12-44); MEAN CORPUSCULAR HEMOGLOBIN 31 PG (25-34); MEAN CORPUSCULAR HGB CONC 33 G/DL (32-36); MEAN CORPUSCULAR VOLUME 94 FL (80-99); MONOCYTES # (AUTO) 0.2 X 10^3 (0.0-1.0); MONOCYTES % (AUTO) 7 % (0-12); NEUTROPHILS # (AUTO) 2.1 X 10^3 (1.8-7.8); NEUTROPHILS % (AUTO) 67 % (42-75); PLATELET COUNT 95 10^3/uL (130-400); RED BLOOD COUNT 3.38 10^6/uL (4.35-5.85); RED CELL DISTRIBUTION WIDTH 15.7 % (10.0-14.5); WHITE BLOOD COUNT 3.2 10^3/uL (4.3-11.0)
[2016-08-15 13:28] LABS: BASOPHILS % (AUTO) 2 % (0-10); EOSINOPHILS % (AUTO) 1 % (0-10); LYMPHOCYTES # (AUTO) 0.7 X 10^3 (1.0-4.0); LYMPHOCYTES % (AUTO) 31 % (12-44); MEAN CORPUSCULAR HGB CONC 33 G/DL (32-36); MEAN CORPUSCULAR VOLUME 95 FL (80-99); MEAN PLATELET VOLUME 9.3 FL (7.4-10.4); MONOCYTES # (AUTO) 0.4 X 10^3 (0.0-1.0); MONOCYTES % (AUTO) 18 % (0-12); NEUTROPHILS % (AUTO) 48 % (42-75); PLATELET COUNT 83 10^3/uL (130-400); RED BLOOD COUNT 3.27 10^6/uL (4.35-5.85); RED CELL DISTRIBUTION WIDTH 15.7 % (10.0-14.5); WHITE BLOOD COUNT 2.2 10^3/uL (4.3-11.0)
[2016-08-15 13:29] LABS: MEAN CORPUSCULAR HEMOGLOBIN 31 PG (25-34)
[2016-08-15 13:55] LABS: ALBUMIN 3.1 G/DL (3.2-4.5); BILIRUBIN,TOTAL 0.3 MG/DL (0.1-1.0); CREATININE SERUM 2.97 MG/DL (0.60-1.30); POTASSIUM 4.9 MMOL/L (3.6-5.0); TOTAL PROTEIN 6.1 G/DL (6.4-8.2)
[2016-08-20 14:26] LABS: BASOPHILS # (AUTO) 0.1 10^3/uL (0.0-0.1); BASOPHILS % (AUTO) 2 % (0-10); EOSINOPHILS % (AUTO) 1 % (0-10); LYMPHOCYTES # (AUTO) 0.8 X 10^3 (1.0-4.0); LYMPHOCYTES % (AUTO) 27 % (12-44); MEAN CORPUSCULAR HEMOGLOBIN 32 PG (25-34); MEAN CORPUSCULAR HGB CONC 33 G/DL (32-36); MEAN CORPUSCULAR VOLUME 96 FL (80-99); MEAN PLATELET VOLUME 9.3 FL (7.4-10.4); MONOCYTES # (AUTO) 0.6 X 10^3 (0.0-1.0); MONOCYTES % (AUTO) 23 % (0-12); NEUTROPHILS # (AUTO) 1.3 X 10^3 (1.8-7.8); NEUTROPHILS % (AUTO) 47 % (42-75); PLATELET COUNT 125 10^3/uL (130-400); RED BLOOD COUNT 3.04 10^6/uL (4.35-5.85); RED CELL DISTRIBUTION WIDTH 16.8 % (10.0-14.5); WHITE BLOOD COUNT 2.8 10^3/uL (4.3-11.0)
[2016-09-03 13:36] LABS: BASOPHILS % (AUTO) 1 % (0-10); EOSINOPHILS # (AUTO) 0.1 10^3/uL (0.0-0.3); EOSINOPHILS % (AUTO) 3 % (0-10); LYMPHOCYTES # (AUTO) 0.4 X 10^3 (1.0-4.0); LYMPHOCYTES % (AUTO) 18 % (12-44); MEAN CORPUSCULAR HEMOGLOBIN 32 PG (25-34); MEAN CORPUSCULAR HGB CONC 32 G/DL (32-36); MEAN CORPUSCULAR VOLUME 99 FL (80-99); MEAN PLATELET VOLUME 9.1 FL (7.4-10.4); MONOCYTES # (AUTO) 0.2 X 10^3 (0.0-1.0); MONOCYTES % (AUTO) 8 % (0-12); NEUTROPHILS # (AUTO) 1.7 X 10^3 (1.8-7.8); NEUTROPHILS % (AUTO) 71 % (42-75); PLATELET COUNT 151 10^3/uL (130-400); RED BLOOD COUNT 3.01 10^6/uL (4.35-5.85); RED CELL DISTRIBUTION WIDTH 16.7 % (10.0-14.5); WHITE BLOOD COUNT 2.4 10^3/uL (4.3-11.0)
[2016-09-18 14:49] LABS: BASOPHILS % (AUTO) 2 % (0-10); EOSINOPHILS % (AUTO) 1 % (0-10); LYMPHOCYTES # (AUTO) 0.4 X 10^3 (1.0-4.0); LYMPHOCYTES % (AUTO) 15 % (12-44); MEAN CORPUSCULAR HEMOGLOBIN 32 PG (25-34); MEAN CORPUSCULAR HGB CONC 32 G/DL (32-36); MEAN CORPUSCULAR VOLUME 101 FL (80-99); MEAN PLATELET VOLUME 9.6 FL (7.4-10.4); MONOCYTES # (AUTO) 0.4 X 10^3 (0.0-1.0); MONOCYTES % (AUTO) 16 % (0-12); NEUTROPHILS # (AUTO) 1.6 X 10^3 (1.8-7.8); NEUTROPHILS % (AUTO) 66 % (42-75); PLATELET COUNT 90 10^3/uL (130-400); RED BLOOD COUNT 2.72 10^6/uL (4.35-5.85); RED CELL DISTRIBUTION WIDTH 17.2 % (10.0-14.5); WHITE BLOOD COUNT 2.5 10^3/uL (4.3-11.0)
[2016-09-18 16:19] LABS: ALANINE AMINOTRANSFERASE < 6 U/L (0-55); ALBUMIN 3.3 G/DL (3.2-4.5); ANION GAP 11 MMOL/L (5-14); ASPARTATE AMINO TRANSFERASE 12 U/L (5-34); BILIRUBIN,TOTAL 0.3 MG/DL (0.1-1.0); BLOOD UREA NITROGEN 46 MG/DL (7-18); BUN/CREATININE RATIO 15; CARBON DIOXIDE 21 MMOL/L (21-32); CHLORIDE 105 MMOL/L (98-107); CREATININE SERUM 3.15 MG/DL (0.60-1.30); GFR ESTIMATED 14; GLUCOSE 119 MG/DL (70-105); POTASSIUM 4.6 MMOL/L (3.6-5.0); SODIUM 137 MMOL/L (135-145); TOTAL PROTEIN 6.1 G/DL (6.4-8.2)
[2016-09-26 12:02] LABS: BASOPHILS # (AUTO) 0.1 10^3/uL (0.0-0.1); BASOPHILS % (AUTO) 2 % (0-10); EOSINOPHILS # (AUTO) 0.1 10^3/uL (0.0-0.3); EOSINOPHILS % (AUTO) 2 % (0-10); LYMPHOCYTES # (AUTO) 0.7 X 10^3 (1.0-4.0); LYMPHOCYTES % (AUTO) 17 % (12-44); MEAN CORPUSCULAR HEMOGLOBIN 32 PG (25-34); MEAN CORPUSCULAR HGB CONC 32 G/DL (32-36); MEAN CORPUSCULAR VOLUME 99 FL (80-99); MEAN PLATELET VOLUME 8.8 FL (7.4-10.4); MONOCYTES # (AUTO) 0.7 X 10^3 (0.0-1.0); MONOCYTES % (AUTO) 18 % (0-12); NEUTROPHILS # (AUTO) 2.3 X 10^3 (1.8-7.8); NEUTROPHILS % (AUTO) 60 % (42-75); PLATELET COUNT 225 10^3/uL (130-400); RED BLOOD COUNT 2.99 10^6/uL (4.35-5.85); RED CELL DISTRIBUTION WIDTH 16.8 % (10.0-14.5); WHITE BLOOD COUNT 3.7 10^3/uL (4.3-11.0)
[~2016-10-03 13:20] MED LIST changes: +DARBEPOETIN 40 MCG/ML (ARANESP) 1 ML VIAL SC SCH; +FULVESTRANT 250 MG/5 ML SYR (CANCER CENTER) IM SCH
[2016-10-03 13:52] LABS: BASOPHILS # (AUTO) 0.1 10^3/uL (0.0-0.1); BASOPHILS % (AUTO) 1 % (0-10); EOSINOPHILS # (AUTO) 0.1 10^3/uL (0.0-0.3); EOSINOPHILS % (AUTO) 3 % (0-10); LYMPHOCYTES # (AUTO) 0.7 X 10^3 (1.0-4.0); LYMPHOCYTES % (AUTO) 15 % (12-44); MEAN CORPUSCULAR HEMOGLOBIN 32 PG (25-34); MEAN CORPUSCULAR HGB CONC 32 G/DL (32-36); MEAN CORPUSCULAR VOLUME 99 FL (80-99); MEAN PLATELET VOLUME 9.4 FL (7.4-10.4); MONOCYTES # (AUTO) 0.2 X 10^3 (0.0-1.0); MONOCYTES % (AUTO) 5 % (0-12); NEUTROPHILS # (AUTO) 3.8 X 10^3 (1.8-7.8); NEUTROPHILS % (AUTO) 77 % (42-75); PLATELET COUNT 262 10^3/uL (130-400); RED BLOOD COUNT 2.94 10^6/uL (4.35-5.85); RED CELL DISTRIBUTION WIDTH 15.3 % (10.0-14.5); WHITE BLOOD COUNT 4.9 10^3/uL (4.3-11.0)
== END 2016-10-16 | disposition home or self-care (01) ==
LOC: ONC 13:20
PROVIDERS: ATTEND Internal Medicine Hematology & Oncology
DX: C79.51 Secondary malignant neoplasm of bone (principal); C78.01 Secondary malignant neoplasm of right lung; C78.7 Secondary malignant neoplasm of liver and intrahepatic bile duct; Z85.3 Personal history of malignant neoplasm of breast; I12.9 Hypertensive chronic kidney disease with stage 1 through stage 4 chronic kidney disease, or unspecified chronic kidney disease; E11.22 Type 2 diabetes mellitus with diabetic chronic kidney disease; D63.1 Anemia in chronic kidney disease; N18.4 Chronic kidney disease, stage 4 (severe); J44.9 Chronic obstructive pulmonary disease, unspecified; I25.10 Atherosclerotic heart disease of native coronary artery without angina pectoris; E78.5 Hyperlipidemia, unspecified; Z79.899 Other long term (current) drug therapy; Z92.3 Personal history of irradiation; Z92.21 Personal history of antineoplastic chemotherapy
CPT/HCPCS: 36591; 80053; 82306; 84439; 84443; 85025; 86300; 96372; 96402; 99213

== ENCOUNTER → 2016-10-17 | Outpatient (CLI) | payer MEDICARE ==
[~2016-10-17] MED LIST changes: -DARBEPOETIN 40 MCG/ML (ARANESP) 1 ML VIAL SC SCH; -FULVESTRANT 250 MG/5 ML SYR (CANCER CENTER) IM SCH
== END ==
LOC: LAB 15:17
PROVIDERS: ATTEND Internal Medicine
DX: Z53.9 Procedure and treatment not carried out, unspecified reason (principal)

== ENCOUNTER → 2016-11-20 | Outpatient (CLI) | payer MEDICARE | LOC: LAB 13:34 | PROVIDERS: ATTEND Internal Medicine | DX: I50.22 Chronic systolic (congestive) heart failure (principal) | CPT/HCPCS: 36415; 83880 ==

== ENCOUNTER 2017-01-01 11:12 | Outpatient (RCR) | payer MEDICARE ==
[2016-10-17 15:30] LABS: BASOPHILS # (AUTO) 0.1 10^3/uL (0.0-0.1); BASOPHILS % (AUTO) 2 % (0-10); EOSINOPHILS # (AUTO) 0.1 10^3/uL (0.0-0.3); EOSINOPHILS % (AUTO) 2 % (0-10); LYMPHOCYTES # (AUTO) 0.8 X 10^3 (1.0-4.0); LYMPHOCYTES % (AUTO) 23 % (12-44); MEAN CORPUSCULAR HEMOGLOBIN 32 PG (25-34); MEAN CORPUSCULAR HGB CONC 33 G/DL (32-36); MEAN CORPUSCULAR VOLUME 99 FL (80-99); MEAN PLATELET VOLUME 10.1 FL (7.4-10.4); MONOCYTES # (AUTO) 0.3 X 10^3 (0.0-1.0); MONOCYTES % (AUTO) 9 % (0-12); NEUTROPHILS # (AUTO) 2.2 X 10^3 (1.8-7.8); NEUTROPHILS % (AUTO) 66 % (42-75); PLATELET COUNT 91 10^3/uL (130-400); RED BLOOD COUNT 2.93 10^6/uL (4.35-5.85); RED CELL DISTRIBUTION WIDTH 16.5 % (10.0-14.5); WHITE BLOOD COUNT 3.3 10^3/uL (4.3-11.0)
[2016-10-23 14:24] LABS: BASOPHILS % (AUTO) 1 % (0-10); EOSINOPHILS % (AUTO) 2 % (0-10); LYMPHOCYTES # (AUTO) 0.6 X 10^3 (1.0-4.0); LYMPHOCYTES % (AUTO) 25 % (12-44); MEAN CORPUSCULAR HEMOGLOBIN 33 PG (25-34); MEAN CORPUSCULAR HGB CONC 33 G/DL (32-36); MEAN CORPUSCULAR VOLUME 100 FL (80-99); MONOCYTES # (AUTO) 0.4 X 10^3 (0.0-1.0); MONOCYTES % (AUTO) 16 % (0-12); NEUTROPHILS # (AUTO) 1.4 X 10^3 (1.8-7.8); NEUTROPHILS % (AUTO) 56 % (42-75); PLATELET COUNT 99 10^3/uL (130-400); RED BLOOD COUNT 2.82 10^6/uL (4.35-5.85); RED CELL DISTRIBUTION WIDTH 17.1 % (10.0-14.5); WHITE BLOOD COUNT 2.5 10^3/uL (4.3-11.0)
[2016-10-23 14:44] LABS: ALBUMIN 3.5 G/DL (3.2-4.5); BILIRUBIN,TOTAL 0.2 MG/DL (0.1-1.0); CALCIUM 9.3 MG/DL (8.5-10.1); CREATININE SERUM 3.47 MG/DL (0.60-1.30); POTASSIUM 4.4 MMOL/L (3.6-5.0); TOTAL PROTEIN 6.3 G/DL (6.4-8.2)
[2016-11-01 12:50] LABS: BASOPHILS # (AUTO) 0.1 10^3/uL (0.0-0.1); BASOPHILS % (AUTO) 2 % (0-10); EOSINOPHILS % (AUTO) 1 % (0-10); LYMPHOCYTES # (AUTO) 0.7 X 10^3 (1.0-4.0); LYMPHOCYTES % (AUTO) 22 % (12-44); MEAN CORPUSCULAR HEMOGLOBIN 33 PG (25-34); MEAN CORPUSCULAR HGB CONC 33 G/DL (32-36); MEAN CORPUSCULAR VOLUME 101 FL (80-99); MEAN PLATELET VOLUME 9.6 FL (7.4-10.4); MONOCYTES # (AUTO) 0.2 X 10^3 (0.0-1.0); MONOCYTES % (AUTO) 5 % (0-12); NEUTROPHILS # (AUTO) 2.3 X 10^3 (1.8-7.8); NEUTROPHILS % (AUTO) 69 % (42-75); PLATELET COUNT 182 10^3/uL (130-400); RED BLOOD COUNT 2.77 10^6/uL (4.35-5.85); RED CELL DISTRIBUTION WIDTH 16.7 % (10.0-14.5); WHITE BLOOD COUNT 3.3 10^3/uL (4.3-11.0)
[2016-11-13 12:55] LABS: BASOPHILS # (AUTO) 0.1 10^3/uL (0.0-0.1); BASOPHILS % (AUTO) 3 % (0-10); EOSINOPHILS # (AUTO) 0.1 10^3/uL (0.0-0.3); EOSINOPHILS % (AUTO) 2 % (0-10); LYMPHOCYTES # (AUTO) 0.5 X 10^3 (1.0-4.0); LYMPHOCYTES % (AUTO) 20 % (12-44); MEAN CORPUSCULAR HEMOGLOBIN 33 PG (25-34); MEAN CORPUSCULAR HGB CONC 33 G/DL (32-36); MEAN CORPUSCULAR VOLUME 102 FL (80-99); MEAN PLATELET VOLUME 9.9 FL (7.4-10.4); MONOCYTES # (AUTO) 0.2 X 10^3 (0.0-1.0); MONOCYTES % (AUTO) 9 % (0-12); NEUTROPHILS # (AUTO) 1.7 X 10^3 (1.8-7.8); NEUTROPHILS % (AUTO) 66 % (42-75); PLATELET COUNT 98 10^3/uL (130-400); RED BLOOD COUNT 2.74 10^6/uL (4.35-5.85); RED CELL DISTRIBUTION WIDTH 16.6 % (10.0-14.5); WHITE BLOOD COUNT 2.6 10^3/uL (4.3-11.0)
[2016-11-20 13:38] LABS: BASOPHILS # (AUTO) 0.1 10^3/uL (0.0-0.1); BASOPHILS % (AUTO) 2 % (0-10); EOSINOPHILS % (AUTO) 1 % (0-10); LYMPHOCYTES # (AUTO) 0.5 X 10^3 (1.0-4.0); LYMPHOCYTES % (AUTO) 21 % (12-44); MEAN CORPUSCULAR HEMOGLOBIN 34 PG (25-34); MEAN CORPUSCULAR HGB CONC 33 G/DL (32-36); MEAN CORPUSCULAR VOLUME 103 FL (80-99); MEAN PLATELET VOLUME 10.1 FL (7.4-10.4); MONOCYTES # (AUTO) 0.3 X 10^3 (0.0-1.0); MONOCYTES % (AUTO) 14 % (0-12); NEUTROPHILS # (AUTO) 1.4 X 10^3 (1.8-7.8); NEUTROPHILS % (AUTO) 62 % (42-75); PLATELET COUNT 94 10^3/uL (130-400); RED BLOOD COUNT 2.77 10^6/uL (4.35-5.85); RED CELL DISTRIBUTION WIDTH 16.9 % (10.0-14.5); WHITE BLOOD COUNT 2.2 10^3/uL (4.3-11.0)
[2016-11-20 13:57] LABS: ALBUMIN 3.5 GM/DL (3.2-4.5); BILIRUBIN,TOTAL 0.3 MG/DL (0.1-1.0); POTASSIUM 4.5 MMOL/L (3.6-5.0); TOTAL PROTEIN 6.5 GM/DL (6.4-8.2)
[2016-11-20 14:01] LABS: CREATININE SERUM 3.2 MG/DL (0.60-1.30)
[2016-11-28 13:00] LABS: BASOPHILS # (AUTO) 0.1 10^3/uL (0.0-0.1); BASOPHILS % (AUTO) 1 % (0-10); EOSINOPHILS % (AUTO) 1 % (0-10); LYMPHOCYTES # (AUTO) 0.5 X 10^3 (1.0-4.0); LYMPHOCYTES % (AUTO) 10 % (12-44); MEAN CORPUSCULAR HEMOGLOBIN 33 PG (25-34); MEAN CORPUSCULAR HGB CONC 32 G/DL (32-36); MEAN CORPUSCULAR VOLUME 101 FL (80-99); MONOCYTES # (AUTO) 0.7 X 10^3 (0.0-1.0); MONOCYTES % (AUTO) 14 % (0-12); NEUTROPHILS # (AUTO) 3.9 X 10^3 (1.8-7.8); NEUTROPHILS % (AUTO) 75 % (42-75); PLATELET COUNT 220 10^3/uL (130-400); RED BLOOD COUNT 2.77 10^6/uL (4.35-5.85); RED CELL DISTRIBUTION WIDTH 15.7 % (10.0-14.5); WHITE BLOOD COUNT 5.2 10^3/uL (4.3-11.0)
[2016-12-12 14:58] LABS: BASOPHILS % (AUTO) 0 % (0-10); EOSINOPHILS # (AUTO) 0.1 10^3/uL (0.0-0.3); EOSINOPHILS % (AUTO) 3 % (0-10); LYMPHOCYTES # (AUTO) 0.4 X 10^3 (1.0-4.0); LYMPHOCYTES % (AUTO) 12 % (12-44); MEAN CORPUSCULAR HEMOGLOBIN 33 PG (25-34); MEAN CORPUSCULAR HGB CONC 33 G/DL (32-36); MEAN CORPUSCULAR VOLUME 100 FL (80-99); MEAN PLATELET VOLUME 9.2 FL (7.4-10.4); MONOCYTES # (AUTO) 0.2 X 10^3 (0.0-1.0); MONOCYTES % (AUTO) 5 % (0-12); NEUTROPHILS # (AUTO) 2.9 X 10^3 (1.8-7.8); NEUTROPHILS % (AUTO) 80 % (42-75); PLATELET COUNT 116 10^3/uL (130-400); RED BLOOD COUNT 2.37 10^6/uL (4.35-5.85); RED CELL DISTRIBUTION WIDTH 16.2 % (10.0-14.5); WHITE BLOOD COUNT 3.7 10^3/uL (4.3-11.0)
[2016-12-17 12:53] LABS: BASOPHILS % (AUTO) 1 % (0-10); EOSINOPHILS % (AUTO) 1 % (0-10); LYMPHOCYTES # (AUTO) 0.5 X 10^3 (1.0-4.0); LYMPHOCYTES % (AUTO) 14 % (12-44); MEAN CORPUSCULAR HEMOGLOBIN 33 PG (25-34); MEAN CORPUSCULAR HGB CONC 32 G/DL (32-36); MEAN CORPUSCULAR VOLUME 102 FL (80-99); MEAN PLATELET VOLUME 9.3 FL (7.4-10.4); MONOCYTES # (AUTO) 0.2 X 10^3 (0.0-1.0); MONOCYTES % (AUTO) 5 % (0-12); NEUTROPHILS # (AUTO) 3.1 X 10^3 (1.8-7.8); NEUTROPHILS % (AUTO) 79 % (42-75); PLATELET COUNT 80 10^3/uL (130-400); RED CELL DISTRIBUTION WIDTH 16.5 % (10.0-14.5); WHITE BLOOD COUNT 3.9 10^3/uL (4.3-11.0)
[2016-12-25 13:44] LABS: BASOPHILS % (AUTO) 2 % (0-10); EOSINOPHILS % (AUTO) 3 % (0-10); LYMPHOCYTES # (AUTO) 0.4 X 10^3 (1.0-4.0); LYMPHOCYTES % (AUTO) 23 % (12-44); MEAN CORPUSCULAR HEMOGLOBIN 32 PG (25-34); MEAN CORPUSCULAR HGB CONC 32 G/DL (32-36); MEAN CORPUSCULAR VOLUME 99 FL (80-99); MONOCYTES # (AUTO) 0.4 X 10^3 (0.0-1.0); MONOCYTES % (AUTO) 22 % (0-12); NEUTROPHILS # (AUTO) 0.8 X 10^3 (1.8-7.8); NEUTROPHILS % (AUTO) 50 % (42-75); PLATELET COUNT 95 10^3/uL (130-400); RED BLOOD COUNT 3.49 10^6/uL (4.35-5.85); RED CELL DISTRIBUTION WIDTH 16.6 % (10.0-14.5); WHITE BLOOD COUNT 1.6 10^3/uL (4.3-11.0)
[2016-12-25 14:23] LABS: ALBUMIN 3.1 GM/DL (3.2-4.5); BILIRUBIN,TOTAL 0.3 MG/DL (0.1-1.0); CALCIUM 9.2 MG/DL (8.5-10.1); CREATININE SERUM 2.87 MG/DL (0.60-1.30); POTASSIUM 4.8 MMOL/L (3.6-5.0); TOTAL PROTEIN 6.2 GM/DL (6.4-8.2)
[~2017-01-01 11:12] MED LIST changes: +ACETAMINOPHEN 500 MG TAB (TYLENOL) CANCER CTR ONE; +DARBEPOETIN 40 MCG/ML (ARANESP) 1 ML VIAL SC SCH; +FULVESTRANT 250 MG/5 ML SYR (CANCER CENTER) IM SCH; +NS (IVPB) CANCER CENTER 250 ML ONE
[2017-01-01 11:37] LABS: BASOPHILS # (AUTO) 0.1 10^3/uL (0.0-0.1); BASOPHILS % (AUTO) 2 % (0-10); EOSINOPHILS # (AUTO) 0.1 10^3/uL (0.0-0.3); EOSINOPHILS % (AUTO) 2 % (0-10); LYMPHOCYTES # (AUTO) 0.6 X 10^3 (1.0-4.0); LYMPHOCYTES % (AUTO) 19 % (12-44); MEAN CORPUSCULAR HEMOGLOBIN 31 PG (25-34); MEAN CORPUSCULAR HGB CONC 32 G/DL (32-36); MEAN CORPUSCULAR VOLUME 99 FL (80-99); MEAN PLATELET VOLUME 9.1 FL (7.4-10.4); MONOCYTES # (AUTO) 0.9 X 10^3 (0.0-1.0); MONOCYTES % (AUTO) 26 % (0-12); NEUTROPHILS # (AUTO) 1.7 X 10^3 (1.8-7.8); NEUTROPHILS % (AUTO) 51 % (42-75); PLATELET COUNT 162 10^3/uL (130-400); RED BLOOD COUNT 3.28 10^6/uL (4.35-5.85); RED CELL DISTRIBUTION WIDTH 16.6 % (10.0-14.5); WHITE BLOOD COUNT 3.3 10^3/uL (4.3-11.0)
== END 2017-01-09 11:08 | disposition home or self-care (01) ==
LOC: ONC 11:12
PROVIDERS: ATTEND Internal Medicine Hematology & Oncology
DX: C79.51 Secondary malignant neoplasm of bone (principal); C78.01 Secondary malignant neoplasm of right lung; C78.7 Secondary malignant neoplasm of liver and intrahepatic bile duct; Z85.3 Personal history of malignant neoplasm of breast; D63.1 Anemia in chronic kidney disease; N18.4 Chronic kidney disease, stage 4 (severe); I12.9 Hypertensive chronic kidney disease with stage 1 through stage 4 chronic kidney disease, or unspecified chronic kidney disease; E11.22 Type 2 diabetes mellitus with diabetic chronic kidney disease; J44.9 Chronic obstructive pulmonary disease, unspecified; I25.10 Atherosclerotic heart disease of native coronary artery without angina pectoris; E78.5 Hyperlipidemia, unspecified; Z79.899 Other long term (current) drug therapy; Z92.3 Personal history of irradiation; Z92.21 Personal history of antineoplastic chemotherapy
CPT/HCPCS: 36430; 36591; 80053; 83880; 85025; 86300; 86850; 86900; 86901; 86920; 96372; 96402; 99213

== ENCOUNTER 2017-01-01 14:11 | Outpatient (RCR) | payer MEDICARE ==
[2016-12-25 15:49] LABS: ALBUMIN 3.1 GM/DL (3.2-4.5); CALCIUM 9.2 MG/DL (8.5-10.1); CREATININE SERUM 2.87 MG/DL (0.60-1.30); PHOSPHORUS 3.3 MG/DL (2.3-4.7); POTASSIUM 4.7 MMOL/L (3.6-5.0)
[2016-12-25 15:55] LABS: PROTEIN/CREATININE RATIO 4.66
[2016-12-27 06:41] LABS: CALCIUM PARA THYROID HORMONE 8.8 mg/dL (8.5-10.5)
[2017-01-01 12:03] LABS: CHOLESTEROL 113 MG/DL (< 200); DIRECT LDL 36 MG/DL (1-129); TRIGLYCERIDES 71 MG/DL (<150); VLDL CHOLESTEROL 14 MG/DL (5-40)
[~2017-01-01 14:11] MED LIST changes: -ACETAMINOPHEN 500 MG TAB (TYLENOL) CANCER CTR ONE; -DARBEPOETIN 40 MCG/ML (ARANESP) 1 ML VIAL SC SCH; -FULVESTRANT 250 MG/5 ML SYR (CANCER CENTER) IM SCH; -NS (IVPB) CANCER CENTER 250 ML ONE
== END 2017-02-07 13:40 | disposition home or self-care (01) ==
LOC: LAB 14:11
PROVIDERS: ATTEND Internal Medicine Nephrology
DX: I13.10 Hypertensive heart and chronic kidney disease without heart failure, with stage 1 through stage 4 chronic kidney disease, or unspecified chronic kidney disease (principal); N18.4 Chronic kidney disease, stage 4 (severe); I50.9 Heart failure, unspecified; I25.10 Atherosclerotic heart disease of native coronary artery without angina pectoris; E78.5 Hyperlipidemia, unspecified; N25.0 Renal osteodystrophy; C50.919 Malignant neoplasm of unspecified site of unspecified female breast; N13.9 Obstructive and reflux uropathy, unspecified
CPT/HCPCS: 36415; 80061; 80069; 82306; 82570; 83970; 84100; 84156

== ENCOUNTER 2017-02-26 10:56 | Outpatient (RCR) | payer MEDICARE ==
[2017-01-09 11:31] LABS: BASOPHILS # (AUTO) 0.1 10^3/uL (0.0-0.1); BASOPHILS % (AUTO) 2 % (0-10); EOSINOPHILS # (AUTO) 0.1 10^3/uL (0.0-0.3); EOSINOPHILS % (AUTO) 2 % (0-10); LYMPHOCYTES # (AUTO) 0.8 X 10^3 (1.0-4.0); LYMPHOCYTES % (AUTO) 14 % (12-44); MEAN CORPUSCULAR HEMOGLOBIN 32 PG (25-34); MEAN CORPUSCULAR HGB CONC 33 G/DL (32-36); MEAN CORPUSCULAR VOLUME 99 FL (80-99); MEAN PLATELET VOLUME 8.3 FL (7.4-10.4); MONOCYTES # (AUTO) 0.6 X 10^3 (0.0-1.0); MONOCYTES % (AUTO) 10 % (0-12); NEUTROPHILS # (AUTO) 4.2 X 10^3 (1.8-7.8); NEUTROPHILS % (AUTO) 73 % (42-75); PLATELET COUNT 251 10^3/uL (130-400); RED BLOOD COUNT 3.48 10^6/uL (4.35-5.85); RED CELL DISTRIBUTION WIDTH 16.9 % (10.0-14.5); WHITE BLOOD COUNT 5.7 10^3/uL (4.3-11.0)
[2017-01-16 13:42] LABS: BASOPHILS % (AUTO) 1 % (0-10); EOSINOPHILS # (AUTO) 0.1 10^3/uL (0.0-0.3); EOSINOPHILS % (AUTO) 3 % (0-10); LYMPHOCYTES # (AUTO) 0.6 X 10^3 (1.0-4.0); LYMPHOCYTES % (AUTO) 16 % (12-44); MEAN CORPUSCULAR HEMOGLOBIN 32 PG (25-34); MEAN CORPUSCULAR HGB CONC 33 G/DL (32-36); MEAN CORPUSCULAR VOLUME 99 FL (80-99); MEAN PLATELET VOLUME 9.4 FL (7.4-10.4); MONOCYTES # (AUTO) 0.3 X 10^3 (0.0-1.0); MONOCYTES % (AUTO) 8 % (0-12); NEUTROPHILS # (AUTO) 2.6 X 10^3 (1.8-7.8); NEUTROPHILS % (AUTO) 73 % (42-75); PLATELET COUNT 140 10^3/uL (130-400); RED BLOOD COUNT 3.25 10^6/uL (4.35-5.85); RED CELL DISTRIBUTION WIDTH 16.1 % (10.0-14.5); WHITE BLOOD COUNT 3.6 10^3/uL (4.3-11.0)
[2017-01-29 13:30] LABS: BASOPHILS % (AUTO) 1 % (0-10); EOSINOPHILS # (AUTO) 0.1 10^3/uL (0.0-0.3); EOSINOPHILS % (AUTO) 2 % (0-10); LYMPHOCYTES # (AUTO) 0.5 X 10^3 (1.0-4.0); LYMPHOCYTES % (AUTO) 17 % (12-44); MEAN CORPUSCULAR HEMOGLOBIN 32 PG (25-34); MEAN CORPUSCULAR HGB CONC 33 G/DL (32-36); MEAN CORPUSCULAR VOLUME 98 FL (80-99); MEAN PLATELET VOLUME 9.3 FL (7.4-10.4); MONOCYTES # (AUTO) 0.6 X 10^3 (0.0-1.0); MONOCYTES % (AUTO) 18 % (0-12); NEUTROPHILS # (AUTO) 1.9 X 10^3 (1.8-7.8); NEUTROPHILS % (AUTO) 62 % (42-75); PLATELET COUNT 134 10^3/uL (130-400); RED BLOOD COUNT 3.15 10^6/uL (4.35-5.85); RED CELL DISTRIBUTION WIDTH 16.9 % (10.0-14.5); WHITE BLOOD COUNT 3.1 10^3/uL (4.3-11.0)
[2017-01-29 14:15] LABS: ALBUMIN 3.2 GM/DL (3.2-4.5); BILIRUBIN,TOTAL 0.3 MG/DL (0.1-1.0); CALCIUM 9.4 MG/DL (8.5-10.1); CREATININE SERUM 2.78 MG/DL (0.60-1.30); POTASSIUM 5.2 MMOL/L (3.6-5.0); TOTAL PROTEIN 6.2 GM/DL (6.4-8.2)
[2017-02-12 11:30] LABS: BASOPHILS # (AUTO) 0.1 10^3/uL (0.0-0.1); BASOPHILS % (AUTO) 2 % (0-10); EOSINOPHILS # (AUTO) 0.1 10^3/uL (0.0-0.3); EOSINOPHILS % (AUTO) 3 % (0-10); LYMPHOCYTES # (AUTO) 0.7 X 10^3 (1.0-4.0); LYMPHOCYTES % (AUTO) 19 % (12-44); MEAN CORPUSCULAR HEMOGLOBIN 32 PG (25-34); MEAN CORPUSCULAR HGB CONC 32 G/DL (32-36); MEAN CORPUSCULAR VOLUME 101 FL (80-99); MEAN PLATELET VOLUME 9.3 FL (7.4-10.4); MONOCYTES # (AUTO) 0.3 X 10^3 (0.0-1.0); MONOCYTES % (AUTO) 8 % (0-12); NEUTROPHILS # (AUTO) 2.5 X 10^3 (1.8-7.8); NEUTROPHILS % (AUTO) 69 % (42-75); PLATELET COUNT 138 10^3/uL (130-400); RED BLOOD COUNT 2.99 10^6/uL (4.35-5.85); RED CELL DISTRIBUTION WIDTH 15.9 % (10.0-14.5); WHITE BLOOD COUNT 3.6 10^3/uL (4.3-11.0)
[~2017-02-26 10:56] MED LIST changes: +DARBEPOETIN 40 MCG/ML (ARANESP) 1 ML VIAL SC SCH; +FULVESTRANT 250 MG/5 ML SYR (CANCER CENTER) IM SCH
[2017-02-26 11:17] LABS: BASOPHILS # (AUTO) 0.1 10^3/uL (0.0-0.1); BASOPHILS % (AUTO) 3 % (0-10); EOSINOPHILS % (AUTO) 1 % (0-10); LYMPHOCYTES # (AUTO) 0.7 X 10^3 (1.0-4.0); LYMPHOCYTES % (AUTO) 21 % (12-44); MEAN CORPUSCULAR HEMOGLOBIN 33 PG (25-34); MEAN CORPUSCULAR HGB CONC 32 G/DL (32-36); MEAN CORPUSCULAR VOLUME 102 FL (80-99); MEAN PLATELET VOLUME 8.6 FL (7.4-10.4); MONOCYTES # (AUTO) 0.5 X 10^3 (0.0-1.0); MONOCYTES % (AUTO) 16 % (0-12); NEUTROPHILS % (AUTO) 60 % (42-75); PLATELET COUNT 122 10^3/uL (130-400); RED BLOOD COUNT 2.86 10^6/uL (4.35-5.85); RED CELL DISTRIBUTION WIDTH 17.3 % (10.0-14.5); RETICULOCYTE % 1.15 % (0.50-2.40); WHITE BLOOD COUNT 3.4 10^3/uL (4.3-11.0)
[2017-02-26 11:44] LABS: ALBUMIN 3.4 GM/DL (3.2-4.5); BILIRUBIN,TOTAL 0.3 MG/DL (0.1-1.0); CALCIUM 10.4 MG/DL (8.5-10.1); CREATININE SERUM 3.52 MG/DL (0.60-1.30); TOTAL PROTEIN 6.1 GM/DL (6.4-8.2)
== END 2017-03-09 | disposition home or self-care (01) ==
LOC: ONC 10:56
PROVIDERS: ATTEND Internal Medicine Hematology & Oncology
DX: C79.51 Secondary malignant neoplasm of bone (principal); C78.01 Secondary malignant neoplasm of right lung; C78.7 Secondary malignant neoplasm of liver and intrahepatic bile duct; Z85.3 Personal history of malignant neoplasm of breast; D63.1 Anemia in chronic kidney disease; N18.4 Chronic kidney disease, stage 4 (severe); I12.9 Hypertensive chronic kidney disease with stage 1 through stage 4 chronic kidney disease, or unspecified chronic kidney disease; E11.22 Type 2 diabetes mellitus with diabetic chronic kidney disease; J44.9 Chronic obstructive pulmonary disease, unspecified; I25.10 Atherosclerotic heart disease of native coronary artery without angina pectoris; E78.5 Hyperlipidemia, unspecified; Z79.899 Other long term (current) drug therapy; Z92.3 Personal history of irradiation; Z92.21 Personal history of antineoplastic chemotherapy
CPT/HCPCS: 36591; 80053; 82728; 83540; 85025; 85045; 86300; 96372; 96402

== ENCOUNTER → 2017-03-20 | Outpatient (CLI) | payer MEDICARE ==
[~2017-03-20] MED LIST changes: -DARBEPOETIN 40 MCG/ML (ARANESP) 1 ML VIAL SC SCH; -FULVESTRANT 250 MG/5 ML SYR (CANCER CENTER) IM SCH
[2017-03-20 14:34] LABS: ALBUMIN 3.8 GM/DL (3.2-4.5); BILIRUBIN,TOTAL 0.3 MG/DL (0.1-1.0); CALCIUM 9.5 MG/DL (8.5-10.1); CREATININE SERUM 3.66 MG/DL (0.60-1.30); POTASSIUM 4.9 MMOL/L (3.6-5.0); TOTAL PROTEIN 6.8 GM/DL (6.4-8.2)
--- NOTE | 2017-03-20 15:54 | Diagnostic Imaging Report ---
EXAMINATION: PA and lateral views of the chest. INDICATION: Shortness of breath, pleural effusion. COMPARISON: 07/27/2016. FINDINGS: There is background interstitial thickening which is probably chronic. There are bilateral small pleural effusions or pleural thickening which appear similar to prior exams. The mild opacity in the flank bases, probably atelectasis related, is similar to the exam of 06/25/2016. Surgical clips around the left axilla and left breast are noted. Pleural scarring in the apices, more prominent on the left side, is seen. There is an infusion port with the tip in the upper right atrium. IMPRESSION: Chronic appearing interstitial thickening and small pleural effusions or pleural thickening seen bilaterally. There are minimal subsegmental opacities in the left lung base, also likely related to atelectasis, similar to the prior exams. Dictated by: Dictated on workstation # [id number]
== END ==
LOC: LAB 13:30
PROVIDERS: ATTEND Nurse Practitioner Family
DX: R06.02 Shortness of breath (principal); J90 Pleural effusion, not elsewhere classified
CPT/HCPCS: 36415; 71020; 80053; 83880

== ENCOUNTER → 2017-03-26 | Outpatient (CLI) | payer MEDICARE ==
[2017-03-26 13:49] LABS: ALBUMIN 3.7 GM/DL (3.2-4.5); CALCIUM 9.5 MG/DL (8.5-10.1); CREATININE SERUM 3.41 MG/DL (0.60-1.30); PHOSPHORUS 3.1 MG/DL (2.3-4.7); POTASSIUM 4.1 MMOL/L (3.6-5.0)
[2017-03-26 13:55] LABS: PROTEIN/CREATININE RATIO 3.69
[2017-03-27 08:06] LABS: CALCIUM PARA THYROID HORMONE 9.4 mg/dL (8.5-10.5)
== END ==
LOC: LAB 12:47
PROVIDERS: ATTEND Internal Medicine Nephrology
DX: C50.919 Malignant neoplasm of unspecified site of unspecified female breast (principal); E78.5 Hyperlipidemia, unspecified; I25.10 Atherosclerotic heart disease of native coronary artery without angina pectoris; N25.0 Renal osteodystrophy; I13.0 Hypertensive heart and chronic kidney disease with heart failure and stage 1 through stage 4 chronic kidney disease, or unspecified chronic kidney disease; N18.4 Chronic kidney disease, stage 4 (severe); I50.9 Heart failure, unspecified; N13.9 Obstructive and reflux uropathy, unspecified; R80.9 Proteinuria, unspecified
CPT/HCPCS: 36415; 80069; 82570; 83970; 84156

== ENCOUNTER → 2017-05-22 | Outpatient (CLI) | payer MEDICARE ==
[~2017-05-22] MED LIST changes: +CALC0.5C11 PO; -CALC0.5C2 PO
== END ==
LOC: LAB 13:20
PROVIDERS: ATTEND Internal Medicine Nephrology
DX: I13.0 Hypertensive heart and chronic kidney disease with heart failure and stage 1 through stage 4 chronic kidney disease, or unspecified chronic kidney disease (principal); N18.4 Chronic kidney disease, stage 4 (severe); I50.9 Heart failure, unspecified; E78.5 Hyperlipidemia, unspecified; N25.0 Renal osteodystrophy; I25.10 Atherosclerotic heart disease of native coronary artery without angina pectoris; R80.9 Proteinuria, unspecified
CPT/HCPCS: 84100

== ENCOUNTER 2017-06-05 12:26 | Outpatient (RCR) | payer MEDICARE ==
[2017-03-12 14:27] LABS: BASOPHILS # (AUTO) 0.1 10^3/uL (0.0-0.1); BASOPHILS % (AUTO) 2 % (0-10); EOSINOPHILS # (AUTO) 0.1 10^3/uL (0.0-0.3); EOSINOPHILS % (AUTO) 4 % (0-10); HEMATOCRIT 29 % (35-52); HEMOGLOBIN 9.2 G/DL (11.5-16.0); LYMPHOCYTES # (AUTO) 0.6 X 10^3 (1.0-4.0); LYMPHOCYTES % (AUTO) 16 % (12-44); MEAN CORPUSCULAR HEMOGLOBIN 33 PG (25-34); MEAN CORPUSCULAR HGB CONC 32 G/DL (32-36); MEAN CORPUSCULAR VOLUME 103 FL (80-99); MEAN PLATELET VOLUME 9.5 FL (7.4-10.4); MONOCYTES # (AUTO) 0.3 X 10^3 (0.0-1.0); MONOCYTES % (AUTO) 7 % (0-12); NEUTROPHILS # (AUTO) 2.4 X 10^3 (1.8-7.8); NEUTROPHILS % (AUTO) 71 % (42-75); PLATELET COUNT 152 10^3/uL (130-400); RED BLOOD COUNT 2.82 10^6/uL (4.35-5.85); RED CELL DISTRIBUTION WIDTH 16.3 % (10.0-14.5); WHITE BLOOD COUNT 3.4 10^3/uL (4.3-11.0)
[2017-03-12 14:58] LABS: CREATININE SERUM 3.56 MG/DL (0.60-1.30); POTASSIUM 4.6 MMOL/L (3.6-5.0)
[2017-03-19 11:11] LABS: BASOPHILS # (AUTO) 0.1 10^3/uL (0.0-0.1); BASOPHILS % (AUTO) 1 % (0-10); EOSINOPHILS # (AUTO) 0.1 10^3/uL (0.0-0.3); EOSINOPHILS % (AUTO) 3 % (0-10); HEMATOCRIT 27 % (35-52); HEMOGLOBIN 8.8 G/DL (11.5-16.0); LYMPHOCYTES # (AUTO) 0.9 X 10^3 (1.0-4.0); LYMPHOCYTES % (AUTO) 24 % (12-44); MEAN CORPUSCULAR HEMOGLOBIN 33 PG (25-34); MEAN CORPUSCULAR HGB CONC 32 G/DL (32-36); MEAN CORPUSCULAR VOLUME 104 FL (80-99); MEAN PLATELET VOLUME 10.1 FL (7.4-10.4); MONOCYTES # (AUTO) 0.3 X 10^3 (0.0-1.0); MONOCYTES % (AUTO) 7 % (0-12); NEUTROPHILS # (AUTO) 2.3 X 10^3 (1.8-7.8); NEUTROPHILS % (AUTO) 65 % (42-75); PLATELET COUNT 100 10^3/uL (130-400); RED BLOOD COUNT 2.64 10^6/uL (4.35-5.85); RED CELL DISTRIBUTION WIDTH 15.9 % (10.0-14.5); WHITE BLOOD COUNT 3.5 10^3/uL (4.3-11.0)
[2017-03-26 13:17] LABS: BASOPHILS % (AUTO) 0 % (0-10); EOSINOPHILS # (AUTO) 0.1 10^3/uL (0.0-0.3); EOSINOPHILS % (AUTO) 1 % (0-10); HEMATOCRIT 28 % (35-52); LYMPHOCYTES # (AUTO) 0.7 X 10^3 (1.0-4.0); LYMPHOCYTES % (AUTO) 15 % (12-44); MEAN CORPUSCULAR HEMOGLOBIN 33 PG (25-34); MEAN CORPUSCULAR HGB CONC 32 G/DL (32-36); MEAN CORPUSCULAR VOLUME 104 FL (80-99); MEAN PLATELET VOLUME 9.3 FL (7.4-10.4); MONOCYTES # (AUTO) 0.5 X 10^3 (0.0-1.0); MONOCYTES % (AUTO) 12 % (0-12); NEUTROPHILS # (AUTO) 3.3 X 10^3 (1.8-7.8); NEUTROPHILS % (AUTO) 72 % (42-75); PLATELET COUNT 110 10^3/uL (130-400); RED BLOOD COUNT 2.72 10^6/uL (4.35-5.85); RED CELL DISTRIBUTION WIDTH 16.3 % (10.0-14.5); WHITE BLOOD COUNT 4.6 10^3/uL (4.3-11.0)
[2017-03-26 13:52] LABS: ALBUMIN 3.7 GM/DL (3.2-4.5); BILIRUBIN,TOTAL 0.3 MG/DL (0.1-1.0); CALCIUM 9.6 MG/DL (8.5-10.1); CREATININE SERUM 3.41 MG/DL (0.60-1.30); POTASSIUM 4.2 MMOL/L (3.6-5.0); TOTAL PROTEIN 7.1 GM/DL (6.4-8.2)
[2017-04-10 13:23] LABS: BASOPHILS % (AUTO) 1 % (0-10); EOSINOPHILS % (AUTO) 1 % (0-10); HEMATOCRIT 28 % (35-52); HEMOGLOBIN 9.1 G/DL (11.5-16.0); LYMPHOCYTES # (AUTO) 0.5 X 10^3 (1.0-4.0); LYMPHOCYTES % (AUTO) 18 % (12-44); MEAN CORPUSCULAR HEMOGLOBIN 34 PG (25-34); MEAN CORPUSCULAR HGB CONC 33 G/DL (32-36); MEAN CORPUSCULAR VOLUME 104 FL (80-99); MEAN PLATELET VOLUME 9.5 FL (7.4-10.4); MONOCYTES # (AUTO) 0.1 X 10^3 (0.0-1.0); MONOCYTES % (AUTO) 5 % (0-12); NEUTROPHILS # (AUTO) 2.2 X 10^3 (1.8-7.8); NEUTROPHILS % (AUTO) 75 % (42-75); PLATELET COUNT 80 10^3/uL (130-400); RED BLOOD COUNT 2.69 10^6/uL (4.35-5.85); RED CELL DISTRIBUTION WIDTH 14.9 % (10.0-14.5); WHITE BLOOD COUNT 2.9 10^3/uL (4.3-11.0)
[2017-04-24 13:00] LABS: BASOPHILS % (AUTO) 2 % (0-10); EOSINOPHILS % (AUTO) 1 % (0-10); HEMATOCRIT 27 % (35-52); HEMOGLOBIN 8.8 G/DL (11.5-16.0); LYMPHOCYTES # (AUTO) 0.5 X 10^3 (1.0-4.0); LYMPHOCYTES % (AUTO) 20 % (12-44); MEAN CORPUSCULAR HEMOGLOBIN 34 PG (25-34); MEAN CORPUSCULAR HGB CONC 33 G/DL (32-36); MEAN CORPUSCULAR VOLUME 104 FL (80-99); MEAN PLATELET VOLUME 9.9 FL (7.4-10.4); MONOCYTES # (AUTO) 0.4 X 10^3 (0.0-1.0); MONOCYTES % (AUTO) 15 % (0-12); NEUTROPHILS # (AUTO) 1.6 X 10^3 (1.8-7.8); NEUTROPHILS % (AUTO) 63 % (42-75); PLATELET COUNT 86 10^3/uL (130-400); RED BLOOD COUNT 2.56 10^6/uL (4.35-5.85); RED CELL DISTRIBUTION WIDTH 14.4 % (10.0-14.5); WHITE BLOOD COUNT 2.5 10^3/uL (4.3-11.0)
[2017-04-24 13:17] LABS: ALBUMIN 3.5 GM/DL (3.2-4.5); BILIRUBIN,TOTAL 0.3 MG/DL (0.1-1.0); CALCIUM 9.3 MG/DL (8.5-10.1); CREATININE SERUM 3.47 MG/DL (0.60-1.30); POTASSIUM 4.2 MMOL/L (3.6-5.0); TOTAL PROTEIN 6.8 GM/DL (6.4-8.2)
[2017-04-30 13:19] LABS: BASOPHILS # (AUTO) 0.1 10^3/uL (0.0-0.1); BASOPHILS % (AUTO) 3 % (0-10); EOSINOPHILS % (AUTO) 1 % (0-10); HEMATOCRIT 29 % (35-52); HEMOGLOBIN 9.5 G/DL (11.5-16.0); LYMPHOCYTES # (AUTO) 0.7 X 10^3 (1.0-4.0); LYMPHOCYTES % (AUTO) 19 % (12-44); MEAN CORPUSCULAR HEMOGLOBIN 34 PG (25-34); MEAN CORPUSCULAR HGB CONC 33 G/DL (32-36); MEAN CORPUSCULAR VOLUME 103 FL (80-99); MEAN PLATELET VOLUME 9.5 FL (7.4-10.4); MONOCYTES # (AUTO) 0.8 X 10^3 (0.0-1.0); MONOCYTES % (AUTO) 22 % (0-12); NEUTROPHILS # (AUTO) 1.9 X 10^3 (1.8-7.8); NEUTROPHILS % (AUTO) 55 % (42-75); PLATELET COUNT 184 10^3/uL (130-400); RED BLOOD COUNT 2.83 10^6/uL (4.35-5.85); RED CELL DISTRIBUTION WIDTH 14.1 % (10.0-14.5); WHITE BLOOD COUNT 3.5 10^3/uL (4.3-11.0)
[2017-05-07 12:09] LABS: BASOPHILS # (AUTO) 0.1 10^3/uL (0.0-0.1); BASOPHILS % (AUTO) 1 % (0-10); EOSINOPHILS # (AUTO) 0.1 10^3/uL (0.0-0.3); EOSINOPHILS % (AUTO) 2 % (0-10); HEMATOCRIT 28 % (35-52); HEMOGLOBIN 9.3 G/DL (11.5-16.0); LYMPHOCYTES # (AUTO) 0.8 X 10^3 (1.0-4.0); LYMPHOCYTES % (AUTO) 16 % (12-44); MEAN CORPUSCULAR HEMOGLOBIN 34 PG (25-34); MEAN CORPUSCULAR HGB CONC 33 G/DL (32-36); MEAN CORPUSCULAR VOLUME 103 FL (80-99); MEAN PLATELET VOLUME 9.4 FL (7.4-10.4); MONOCYTES # (AUTO) 0.5 X 10^3 (0.0-1.0); MONOCYTES % (AUTO) 11 % (0-12); NEUTROPHILS # (AUTO) 3.5 X 10^3 (1.8-7.8); NEUTROPHILS % (AUTO) 70 % (42-75); PLATELET COUNT 216 10^3/uL (130-400); RED BLOOD COUNT 2.76 10^6/uL (4.35-5.85); RED CELL DISTRIBUTION WIDTH 13.5 % (10.0-14.5); WHITE BLOOD COUNT 4.9 10^3/uL (4.3-11.0)
[2017-05-22 13:22] LABS: BASOPHILS % (AUTO) 1 % (0-10); EOSINOPHILS # (AUTO) 0.1 10^3/uL (0.0-0.3); EOSINOPHILS % (AUTO) 2 % (0-10); HEMATOCRIT 29 % (35-52); HEMOGLOBIN 9.3 G/DL (11.5-16.0); LYMPHOCYTES # (AUTO) 0.9 X 10^3 (1.0-4.0); LYMPHOCYTES % (AUTO) 22 % (12-44); MEAN CORPUSCULAR HEMOGLOBIN 33 PG (25-34); MEAN CORPUSCULAR HGB CONC 32 G/DL (32-36); MEAN CORPUSCULAR VOLUME 103 FL (80-99); MEAN PLATELET VOLUME 9.4 FL (7.4-10.4); MONOCYTES # (AUTO) 0.3 X 10^3 (0.0-1.0); MONOCYTES % (AUTO) 8 % (0-12); NEUTROPHILS # (AUTO) 2.7 X 10^3 (1.8-7.8); NEUTROPHILS % (AUTO) 67 % (42-75); PLATELET COUNT 95 10^3/uL (130-400); RED CELL DISTRIBUTION WIDTH 14.2 % (10.0-14.5)
[2017-05-22 13:54] LABS: ALBUMIN 3.6 GM/DL (3.2-4.5); BILIRUBIN,TOTAL 0.3 MG/DL (0.1-1.0); CALCIUM 9.7 MG/DL (8.5-10.1); CREATININE SERUM 3.53 MG/DL (0.60-1.30); POTASSIUM 5.4 MMOL/L (3.6-5.0); TOTAL PROTEIN 6.9 GM/DL (6.4-8.2)
[~2017-06-05 12:26] MED LIST changes: +DARBEPOETIN 25 MCG/ML (CANCER CTR) 1 ML VIAL SC SCH; +DARBEPOETIN 40 MCG/ML (ARANESP) 1 ML VIAL SC SCH; +DARBEPOETIN 60 MCG/ML ARANESP (CANCER CTR) INJ SCH; +FULVESTRANT 250 MG/5 ML SYR (CANCER CENTER) IM SCH; -HYDR-3812 PO
[2017-06-05 12:48] LABS: BASOPHILS # (AUTO) 0.1 10^3/uL (0.0-0.1); BASOPHILS % (AUTO) 3 % (0-10); EOSINOPHILS # (AUTO) 0.1 10^3/uL (0.0-0.3); EOSINOPHILS % (AUTO) 2 % (0-10); HEMATOCRIT 30 % (35-52); HEMOGLOBIN 9.4 G/DL (11.5-16.0); LYMPHOCYTES # (AUTO) 0.7 X 10^3 (1.0-4.0); LYMPHOCYTES % (AUTO) 19 % (12-44); MEAN CORPUSCULAR HEMOGLOBIN 33 PG (25-34); MEAN CORPUSCULAR HGB CONC 32 G/DL (32-36); MEAN CORPUSCULAR VOLUME 104 FL (80-99); MEAN PLATELET VOLUME 9.4 FL (7.4-10.4); MONOCYTES % (AUTO) 25 % (0-12); NEUTROPHILS # (AUTO) 2.1 X 10^3 (1.8-7.8); NEUTROPHILS % (AUTO) 52 % (42-75); PLATELET COUNT 143 10^3/uL (130-400); RED BLOOD COUNT 2.86 10^6/uL (4.35-5.85); RED CELL DISTRIBUTION WIDTH 15.1 % (10.0-14.5)
== END 2017-06-10 | disposition home or self-care (01) ==
LOC: ONC 12:26
PROVIDERS: ATTEND Internal Medicine Hematology & Oncology
DX: C79.51 Secondary malignant neoplasm of bone (principal); C78.01 Secondary malignant neoplasm of right lung; C78.7 Secondary malignant neoplasm of liver and intrahepatic bile duct; Z85.3 Personal history of malignant neoplasm of breast; D63.1 Anemia in chronic kidney disease; N18.4 Chronic kidney disease, stage 4 (severe); I12.9 Hypertensive chronic kidney disease with stage 1 through stage 4 chronic kidney disease, or unspecified chronic kidney disease; E11.22 Type 2 diabetes mellitus with diabetic chronic kidney disease; Z66 Do not resuscitate; J44.9 Chronic obstructive pulmonary disease, unspecified; I25.10 Atherosclerotic heart disease of native coronary artery without angina pectoris; E78.5 Hyperlipidemia, unspecified; Z79.899 Other long term (current) drug therapy; Z92.3 Personal history of irradiation; Z92.21 Personal history of antineoplastic chemotherapy
CPT/HCPCS: 36415; 36591; 80048; 80053; 82306; 84443; 85025; 86300; 96372; 96402

== ENCOUNTER → 2017-06-26 | Outpatient (CLI) | payer MEDICARE ==
[~2017-06-26] MED LIST changes: -DARBEPOETIN 25 MCG/ML (CANCER CTR) 1 ML VIAL SC SCH; -DARBEPOETIN 40 MCG/ML (ARANESP) 1 ML VIAL SC SCH; -DARBEPOETIN 60 MCG/ML ARANESP (CANCER CTR) INJ SCH; -FULVESTRANT 250 MG/5 ML SYR (CANCER CENTER) IM SCH; -ROSU20TA28 PO; +ROSU20TA30 PO
--- NOTE | 2017-06-26 15:31 | Diagnostic Imaging Report ---
INDICATION: Cough and congestion. COMPARISON: 03/20/2017. FINDINGS: The heart size is normal. The pulmonary vessels appear unremarkable. The Port-A-Cath on the right is unchanged. Postoperative changes in the left axilla are again noted. There is no pneumothorax demonstrated. There are chronic findings of COPD and background interstitial changes. The bilateral pleural effusions appear fairly similar to the prior study. Patchy airspace disease in the lung bases appears similar to minimally improved from the prior exam, possibly related to atelectasis, infiltrate, or edema. Some chronic appearing pleural parenchymal scarring in the lung apices is stable. No new airspace disease is suspected when compared to the prior exam. No new acute osseous abnormality is seen. IMPRESSION: 1. Persistent bilateral small pleural effusions appearing similar to the prior study. Persistent bilateral basilar atelectasis or infiltrate, mildly improved from the prior study. 2. Chronic stable background changes of COPD and interstitial thickening. 3. No significant new abnormality or adverse interval change is seen when compared to the prior study. Dictated by: Dictated on workstation # [id number]
== END ==
LOC: RAD 15:06
PROVIDERS: ATTEND Internal Medicine
DX: J44.9 Chronic obstructive pulmonary disease, unspecified (principal); J90 Pleural effusion, not elsewhere classified; J84.9 Interstitial pulmonary disease, unspecified
CPT/HCPCS: 71046

== ENCOUNTER → 2017-07-01 | Outpatient (CLI) | payer MEDICARE ==
[2017-07-01 15:04] LABS: CALCIUM 9.5 MG/DL (8.5-10.1); CREATININE SERUM 4.69 MG/DL (0.60-1.30); POTASSIUM 4.1 MMOL/L (3.6-5.0)
== END ==
LOC: LAB 14:24
PROVIDERS: ATTEND Internal Medicine
DX: N18.5 Chronic kidney disease, stage 5 (principal)
CPT/HCPCS: 36415; 80048

== ENCOUNTER → 2017-08-27 | Outpatient (CLI) | payer MEDICARE ==
[2017-08-27 15:41] LABS: BASOPHILS % (AUTO) 0 % (0-10); EOSINOPHILS # (AUTO) 0.3 10^3/uL (0.0-0.3); EOSINOPHILS % (AUTO) 5 % (0-10); HEMATOCRIT 32 % (35-52); HEMOGLOBIN 9.8 G/DL (11.5-16.0); LYMPHOCYTES % (AUTO) 15 % (12-44); MEAN CORPUSCULAR HEMOGLOBIN 31 PG (25-34); MEAN CORPUSCULAR HGB CONC 31 G/DL (32-36); MEAN CORPUSCULAR VOLUME 101 FL (80-99); MEAN PLATELET VOLUME 9.9 FL (7.4-10.4); MONOCYTES # (AUTO) 0.7 X 10^3 (0.0-1.0); MONOCYTES % (AUTO) 11 % (0-12); NEUTROPHILS # (AUTO) 4.8 X 10^3 (1.8-7.8); NEUTROPHILS % (AUTO) 70 % (42-75); PLATELET COUNT 151 10^3/uL (130-400); RED BLOOD COUNT 3.14 10^6/uL (4.35-5.85); WHITE BLOOD COUNT 6.9 10^3/uL (4.3-11.0)
[2017-08-27 15:57] LABS: ALBUMIN 3.5 GM/DL (3.2-4.5); CALCIUM 9.5 MG/DL (8.5-10.1); CREATININE SERUM 3.64 MG/DL (0.60-1.30); PHOSPHORUS 5.2 MG/DL (2.3-4.7); POTASSIUM 4.8 MMOL/L (3.6-5.0)
== END ==
LOC: LAB 14:38
PROVIDERS: ATTEND Internal Medicine Nephrology
DX: N18.4 Chronic kidney disease, stage 4 (severe) (principal); D63.1 Anemia in chronic kidney disease; C50.919 Malignant neoplasm of unspecified site of unspecified female breast; E78.5 Hyperlipidemia, unspecified; N25.0 Renal osteodystrophy; I25.10 Atherosclerotic heart disease of native coronary artery without angina pectoris; I13.0 Hypertensive heart and chronic kidney disease with heart failure and stage 1 through stage 4 chronic kidney disease, or unspecified chronic kidney disease; N13.9 Obstructive and reflux uropathy, unspecified; R80.9 Proteinuria, unspecified; I50.9 Heart failure, unspecified
CPT/HCPCS: 36415; 80069; 82306; 82570; 82728; 83540; 83970; 84156; 85025

== ENCOUNTER → 2017-09-24 | Outpatient (RCR) | payer MEDICARE ==
[2017-06-26 14:14] LABS: BASOPHILS % (AUTO) 1 % (0-10); EOSINOPHILS % (AUTO) 1 % (0-10); HEMATOCRIT 30 % (35-52); LYMPHOCYTES # (AUTO) 0.4 X 10^3 (1.0-4.0); LYMPHOCYTES % (AUTO) 13 % (12-44); MEAN CORPUSCULAR HEMOGLOBIN 33 PG (25-34); MEAN CORPUSCULAR HGB CONC 33 G/DL (32-36); MEAN CORPUSCULAR VOLUME 100 FL (80-99); MEAN PLATELET VOLUME 10.2 FL (7.4-10.4); MONOCYTES # (AUTO) 0.2 X 10^3 (0.0-1.0); MONOCYTES % (AUTO) 7 % (0-12); NEUTROPHILS # (AUTO) 2.2 X 10^3 (1.8-7.8); NEUTROPHILS % (AUTO) 79 % (42-75); PLATELET COUNT 82 10^3/uL (130-400); RED BLOOD COUNT 3.02 10^6/uL (4.35-5.85); RED CELL DISTRIBUTION WIDTH 14.6 % (10.0-14.5); WHITE BLOOD COUNT 2.8 10^3/uL (4.3-11.0)
[2017-06-26 14:36] LABS: ALBUMIN 3.6 GM/DL (3.2-4.5); BILIRUBIN,TOTAL 0.4 MG/DL (0.1-1.0); CALCIUM 9.6 MG/DL (8.5-10.1); CREATININE SERUM 4.85 MG/DL (0.60-1.30); POTASSIUM 4.7 MMOL/L (3.6-5.0); TOTAL PROTEIN 7.3 GM/DL (6.4-8.2)
[2017-07-03 13:23] LABS: BASOPHILS % (AUTO) 1 % (0-10); EOSINOPHILS % (AUTO) 1 % (0-10); HEMATOCRIT 30 % (35-52); LYMPHOCYTES # (AUTO) 0.3 X 10^3 (1.0-4.0); LYMPHOCYTES % (AUTO) 7 % (12-44); MEAN CORPUSCULAR HEMOGLOBIN 33 PG (25-34); MEAN CORPUSCULAR HGB CONC 33 G/DL (32-36); MEAN CORPUSCULAR VOLUME 100 FL (80-99); MEAN PLATELET VOLUME 9.6 FL (7.4-10.4); MONOCYTES # (AUTO) 0.6 X 10^3 (0.0-1.0); MONOCYTES % (AUTO) 14 % (0-12); NEUTROPHILS # (AUTO) 3.2 X 10^3 (1.8-7.8); NEUTROPHILS % (AUTO) 78 % (42-75); PLATELET COUNT 167 10^3/uL (130-400); RED BLOOD COUNT 3.03 10^6/uL (4.35-5.85); RED CELL DISTRIBUTION WIDTH 14.7 % (10.0-14.5); WHITE BLOOD COUNT 4.1 10^3/uL (4.3-11.0)
[2017-07-03 13:40] LABS: ALBUMIN 3.3 GM/DL (3.2-4.5); BILIRUBIN,TOTAL 0.3 MG/DL (0.1-1.0); CALCIUM 9.2 MG/DL (8.5-10.1); CREATININE SERUM 4.2 MG/DL (0.60-1.30); POTASSIUM 4.9 MMOL/L (3.6-5.0); TOTAL PROTEIN 7.1 GM/DL (6.4-8.2)
[2017-07-16 13:41] LABS: BASOPHILS # (AUTO) 0.1 10^3/uL (0.0-0.1); BASOPHILS % (AUTO) 1 % (0-10); EOSINOPHILS # (AUTO) 0.1 10^3/uL (0.0-0.3); EOSINOPHILS % (AUTO) 1 % (0-10); HEMATOCRIT 27 % (35-52); HEMOGLOBIN 8.6 G/DL (11.5-16.0); LYMPHOCYTES % (AUTO) 14 % (12-44); MEAN CORPUSCULAR HEMOGLOBIN 32 PG (25-34); MEAN CORPUSCULAR HGB CONC 32 G/DL (32-36); MEAN CORPUSCULAR VOLUME 101 FL (80-99); MEAN PLATELET VOLUME 10.1 FL (7.4-10.4); MONOCYTES # (AUTO) 0.9 X 10^3 (0.0-1.0); MONOCYTES % (AUTO) 12 % (0-12); NEUTROPHILS % (AUTO) 71 % (42-75); PLATELET COUNT 237 10^3/uL (130-400); RED BLOOD COUNT 2.68 10^6/uL (4.35-5.85)
[2017-07-16 14:04] LABS: ALBUMIN 3.2 GM/DL (3.2-4.5); BILIRUBIN,TOTAL 0.3 MG/DL (0.1-1.0); CALCIUM 9.5 MG/DL (8.5-10.1); CREATININE SERUM 3.58 MG/DL (0.60-1.30); POTASSIUM 4.6 MMOL/L (3.6-5.0); TOTAL PROTEIN 6.8 GM/DL (6.4-8.2)
[2017-07-30 14:56] LABS: BASOPHILS # (AUTO) 0.1 10^3/uL (0.0-0.1); BASOPHILS % (AUTO) 1 % (0-10); EOSINOPHILS # (AUTO) 0.4 10^3/uL (0.0-0.3); EOSINOPHILS % (AUTO) 5 % (0-10); HEMATOCRIT 29 % (35-52); HEMOGLOBIN 9.2 G/DL (11.5-16.0); LYMPHOCYTES % (AUTO) 13 % (12-44); MEAN CORPUSCULAR HEMOGLOBIN 32 PG (25-34); MEAN CORPUSCULAR HGB CONC 31 G/DL (32-36); MEAN CORPUSCULAR VOLUME 102 FL (80-99); MEAN PLATELET VOLUME 10.5 FL (7.4-10.4); MONOCYTES # (AUTO) 1.1 X 10^3 (0.0-1.0); MONOCYTES % (AUTO) 14 % (0-12); NEUTROPHILS # (AUTO) 5.1 X 10^3 (1.8-7.8); NEUTROPHILS % (AUTO) 66 % (42-75); PLATELET COUNT 159 10^3/uL (130-400); RED BLOOD COUNT 2.88 10^6/uL (4.35-5.85); RED CELL DISTRIBUTION WIDTH 14.4 % (10.0-14.5); WHITE BLOOD COUNT 7.7 10^3/uL (4.3-11.0)
[2017-08-13 13:05] LABS: BASOPHILS % (AUTO) 0 % (0-10); EOSINOPHILS # (AUTO) 0.4 10^3/uL (0.0-0.3); EOSINOPHILS % (AUTO) 5 % (0-10); HEMATOCRIT 32 % (35-52); HEMOGLOBIN 9.9 G/DL (11.5-16.0); LYMPHOCYTES # (AUTO) 0.9 X 10^3 (1.0-4.0); LYMPHOCYTES % (AUTO) 12 % (12-44); MEAN CORPUSCULAR HEMOGLOBIN 31 PG (25-34); MEAN CORPUSCULAR HGB CONC 31 G/DL (32-36); MEAN CORPUSCULAR VOLUME 100 FL (80-99); MEAN PLATELET VOLUME 10.2 FL (7.4-10.4); MONOCYTES # (AUTO) 0.9 X 10^3 (0.0-1.0); MONOCYTES % (AUTO) 11 % (0-12); NEUTROPHILS # (AUTO) 5.8 X 10^3 (1.8-7.8); NEUTROPHILS % (AUTO) 72 % (42-75); PLATELET COUNT 143 10^3/uL (130-400); RED BLOOD COUNT 3.16 10^6/uL (4.35-5.85); RED CELL DISTRIBUTION WIDTH 14.4 % (10.0-14.5)
[2017-08-13 13:27] LABS: ALBUMIN 3.6 GM/DL (3.2-4.5); BILIRUBIN,TOTAL 0.3 MG/DL (0.1-1.0); CALCIUM 9.4 MG/DL (8.5-10.1); CREATININE SERUM 3.48 MG/DL (0.60-1.30); POTASSIUM 4.6 MMOL/L (3.6-5.0); TOTAL PROTEIN 6.8 GM/DL (6.4-8.2)
[2017-08-27 15:42] LABS: BASOPHILS % (AUTO) 0 % (0-10); EOSINOPHILS # (AUTO) 0.3 10^3/uL (0.0-0.3); EOSINOPHILS % (AUTO) 4 % (0-10); HEMATOCRIT 32 % (35-52); HEMOGLOBIN 9.8 G/DL (11.5-16.0); LYMPHOCYTES % (AUTO) 15 % (12-44); MEAN CORPUSCULAR HEMOGLOBIN 31 PG (25-34); MEAN CORPUSCULAR HGB CONC 31 G/DL (32-36); MEAN CORPUSCULAR VOLUME 101 FL (80-99); MEAN PLATELET VOLUME 10.3 FL (7.4-10.4); MONOCYTES # (AUTO) 0.7 X 10^3 (0.0-1.0); MONOCYTES % (AUTO) 10 % (0-12); NEUTROPHILS # (AUTO) 4.9 X 10^3 (1.8-7.8); NEUTROPHILS % (AUTO) 71 % (42-75); PLATELET COUNT 151 10^3/uL (130-400); RED BLOOD COUNT 3.15 10^6/uL (4.35-5.85); RED CELL DISTRIBUTION WIDTH 14.1 % (10.0-14.5); WHITE BLOOD COUNT 6.9 10^3/uL (4.3-11.0)
[2017-09-10 13:30] LABS: BASOPHILS % (AUTO) 0 % (0-10); EOSINOPHILS # (AUTO) 0.3 10^3/uL (0.0-0.3); EOSINOPHILS % (AUTO) 5 % (0-10); HEMATOCRIT 33 % (35-52); HEMOGLOBIN 10.5 G/DL (11.5-16.0); LYMPHOCYTES # (AUTO) 0.9 X 10^3 (1.0-4.0); LYMPHOCYTES % (AUTO) 16 % (12-44); MEAN CORPUSCULAR HEMOGLOBIN 31 PG (25-34); MEAN CORPUSCULAR HGB CONC 31 G/DL (32-36); MEAN CORPUSCULAR VOLUME 97 FL (80-99); MEAN PLATELET VOLUME 9.6 FL (7.4-10.4); MONOCYTES # (AUTO) 0.8 X 10^3 (0.0-1.0); MONOCYTES % (AUTO) 14 % (0-12); NEUTROPHILS # (AUTO) 3.7 X 10^3 (1.8-7.8); NEUTROPHILS % (AUTO) 65 % (42-75); PLATELET COUNT 162 10^3/uL (130-400); RED BLOOD COUNT 3.43 10^6/uL (4.35-5.85); RED CELL DISTRIBUTION WIDTH 13.8 % (10.0-14.5); WHITE BLOOD COUNT 5.7 10^3/uL (4.3-11.0)
[2017-09-10 13:50] LABS: ALBUMIN 3.7 GM/DL (3.2-4.5); BILIRUBIN,TOTAL 0.3 MG/DL (0.1-1.0); CALCIUM 9.9 MG/DL (8.5-10.1); CREATININE SERUM 3.85 MG/DL (0.60-1.30); POTASSIUM 4.4 MMOL/L (3.6-5.0); TOTAL PROTEIN 6.9 GM/DL (6.4-8.2)
[~2017-09-24] MED LIST changes: +DARBEPOETIN 60 MCG/ML ARANESP (CANCER CTR) INJ SCH; +FULVESTRANT 250 MG/5 ML SYR (CANCER CENTER) IM SCH; -ROSU20TA30 PO; +ROSU20TA31 PO
[2017-09-24 13:48] LABS: BASOPHILS % (AUTO) 0 % (0-10); EOSINOPHILS # (AUTO) 0.4 10^3/uL (0.0-0.3); EOSINOPHILS % (AUTO) 5 % (0-10); HEMATOCRIT 33 % (35-52); HEMOGLOBIN 10.4 G/DL (11.5-16.0); LYMPHOCYTES % (AUTO) 14 % (12-44); MEAN CORPUSCULAR HEMOGLOBIN 30 PG (25-34); MEAN CORPUSCULAR HGB CONC 31 G/DL (32-36); MEAN CORPUSCULAR VOLUME 96 FL (80-99); MEAN PLATELET VOLUME 9.8 FL (7.4-10.4); MONOCYTES # (AUTO) 1.1 X 10^3 (0.0-1.0); MONOCYTES % (AUTO) 15 % (0-12); NEUTROPHILS # (AUTO) 4.7 X 10^3 (1.8-7.8); NEUTROPHILS % (AUTO) 65 % (42-75); PLATELET COUNT 177 10^3/uL (130-400); RED BLOOD COUNT 3.48 10^6/uL (4.35-5.85); WHITE BLOOD COUNT 7.3 10^3/uL (4.3-11.0)
== END | disposition home or self-care (01) ==
LOC: ONC 06-26 13:27
PROVIDERS: ATTEND Internal Medicine Hematology & Oncology
DX: C79.51 Secondary malignant neoplasm of bone (principal); C78.01 Secondary malignant neoplasm of right lung; C78.7 Secondary malignant neoplasm of liver and intrahepatic bile duct; Z85.3 Personal history of malignant neoplasm of breast; D63.1 Anemia in chronic kidney disease; N18.4 Chronic kidney disease, stage 4 (severe); E11.22 Type 2 diabetes mellitus with diabetic chronic kidney disease; Z66 Do not resuscitate; J44.9 Chronic obstructive pulmonary disease, unspecified; I25.10 Atherosclerotic heart disease of native coronary artery without angina pectoris; E78.5 Hyperlipidemia, unspecified; Z79.899 Other long term (current) drug therapy; Z92.3 Personal history of irradiation; Z92.21 Personal history of antineoplastic chemotherapy; N25.0 Renal osteodystrophy; I13.0 Hypertensive heart and chronic kidney disease with heart failure and stage 1 through stage 4 chronic kidney disease, or unspecified chronic kidney disease; N13.9 Obstructive and reflux uropathy, unspecified; R80.9 Proteinuria, unspecified; I50.9 Heart failure, unspecified
CPT/HCPCS: 36415; 36591; 80053; 80069; 82306; 82570; 82728; 83540; 83970; 84156; 85025; 86300; 96372; 99213

== ENCOUNTER → 2017-11-20 | Outpatient (CLI) | payer MEDICARE ==
[~2017-11-20] MED LIST changes: -DARBEPOETIN 60 MCG/ML ARANESP (CANCER CTR) INJ SCH; -FULVESTRANT 250 MG/5 ML SYR (CANCER CENTER) IM SCH; +ROSU20TA30 PO; -ROSU20TA31 PO
[2017-11-20 13:20] LABS: BASOPHILS % (AUTO) 0 % (0-10); EOSINOPHILS # (AUTO) 0.3 10^3/uL (0.0-0.3); EOSINOPHILS % (AUTO) 4 % (0-10); HEMATOCRIT 31 % (35-52); HEMOGLOBIN 9.6 G/DL (11.5-16.0); LYMPHOCYTES # (AUTO) 0.9 X 10^3 (1.0-4.0); LYMPHOCYTES % (AUTO) 12 % (12-44); MEAN CORPUSCULAR HEMOGLOBIN 29 PG (25-34); MEAN CORPUSCULAR HGB CONC 31 G/DL (32-36); MEAN CORPUSCULAR VOLUME 93 FL (80-99); MEAN PLATELET VOLUME 9.7 FL (7.4-10.4); MONOCYTES # (AUTO) 0.9 X 10^3 (0.0-1.0); MONOCYTES % (AUTO) 11 % (0-12); NEUTROPHILS # (AUTO) 5.6 X 10^3 (1.8-7.8); NEUTROPHILS % (AUTO) 73 % (42-75); PLATELET COUNT 194 10^3/uL (130-400); RED BLOOD COUNT 3.33 10^6/uL (4.35-5.85); RED CELL DISTRIBUTION WIDTH 14.7 % (10.0-14.5); WHITE BLOOD COUNT 7.6 10^3/uL (4.3-11.0)
[2017-11-20 13:32] LABS: CALCIUM 8.9 MG/DL (8.5-10.1); CREATININE SERUM 4.19 MG/DL (0.60-1.30); POTASSIUM 4.7 MMOL/L (3.6-5.0)
[2017-11-20 14:02] LABS: ALBUMIN 3.4 GM/DL (3.2-4.5); CREATININE SERUM 4.21 MG/DL (0.60-1.30); PHOSPHORUS 5.8 MG/DL (2.3-4.7); POTASSIUM 4.6 MMOL/L (3.6-5.0)
== END ==
LOC: LAB 12:42
PROVIDERS: ATTEND Psychiatry & Neurology Psychiatry
DX: E78.5 Hyperlipidemia, unspecified (principal); N18.5 Chronic kidney disease, stage 5; C50.919 Malignant neoplasm of unspecified site of unspecified female breast; N25.0 Renal osteodystrophy; I25.10 Atherosclerotic heart disease of native coronary artery without angina pectoris; I13.2 Hypertensive heart and chronic kidney disease with heart failure and with stage 5 chronic kidney disease, or end stage renal disease; I50.9 Heart failure, unspecified; N13.9 Obstructive and reflux uropathy, unspecified; R80.9 Proteinuria, unspecified; D63.1 Anemia in chronic kidney disease
CPT/HCPCS: 36415; 80048; 80061; 80069; 82306; 82570; 83970; 84156; 85025

== ENCOUNTER → 2017-11-20 | Outpatient (CLI) | payer MEDICARE | LOC: LAB 12:48 | PROVIDERS: ATTEND Internal Medicine | DX: E78.5 Hyperlipidemia, unspecified (principal); N18.5 Chronic kidney disease, stage 5; C50.919 Malignant neoplasm of unspecified site of unspecified female breast; N25.0 Renal osteodystrophy; I25.10 Atherosclerotic heart disease of native coronary artery without angina pectoris; I13.2 Hypertensive heart and chronic kidney disease with heart failure and with stage 5 chronic kidney disease, or end stage renal disease; I50.9 Heart failure, unspecified; N13.9 Obstructive and reflux uropathy, unspecified; R80.9 Proteinuria, unspecified; D63.1 Anemia in chronic kidney disease ==

== ENCOUNTER 2017-12-04 11:21 | Outpatient (RCR) | payer MEDICARE ==
[2017-10-08 12:31] LABS: BASOPHILS % (AUTO) 0 % (0-10); EOSINOPHILS # (AUTO) 0.4 10^3/uL (0.0-0.3); EOSINOPHILS % (AUTO) 5 % (0-10); HEMATOCRIT 34 % (35-52); HEMOGLOBIN 10.6 G/DL (11.5-16.0); LYMPHOCYTES # (AUTO) 1.1 X 10^3 (1.0-4.0); LYMPHOCYTES % (AUTO) 14 % (12-44); MEAN CORPUSCULAR HEMOGLOBIN 30 PG (25-34); MEAN CORPUSCULAR HGB CONC 31 G/DL (32-36); MEAN CORPUSCULAR VOLUME 95 FL (80-99); MEAN PLATELET VOLUME 9.6 FL (7.4-10.4); MONOCYTES % (AUTO) 13 % (0-12); NEUTROPHILS # (AUTO) 5.2 X 10^3 (1.8-7.8); NEUTROPHILS % (AUTO) 68 % (42-75); PLATELET COUNT 195 10^3/uL (130-400); RED BLOOD COUNT 3.59 10^6/uL (4.35-5.85); RED CELL DISTRIBUTION WIDTH 14.1 % (10.0-14.5); WHITE BLOOD COUNT 7.7 10^3/uL (4.3-11.0)
[2017-10-22 13:49] LABS: BASOPHILS % (AUTO) 0 % (0-10); EOSINOPHILS # (AUTO) 0.3 10^3/uL (0.0-0.3); EOSINOPHILS % (AUTO) 5 % (0-10); HEMATOCRIT 34 % (35-52); HEMOGLOBIN 10.5 G/DL (11.5-16.0); LYMPHOCYTES # (AUTO) 0.9 X 10^3 (1.0-4.0); LYMPHOCYTES % (AUTO) 14 % (12-44); MEAN CORPUSCULAR HEMOGLOBIN 29 PG (25-34); MEAN CORPUSCULAR HGB CONC 31 G/DL (32-36); MEAN CORPUSCULAR VOLUME 95 FL (80-99); MEAN PLATELET VOLUME 9.9 FL (7.4-10.4); MONOCYTES # (AUTO) 0.9 X 10^3 (0.0-1.0); MONOCYTES % (AUTO) 14 % (0-12); NEUTROPHILS # (AUTO) 4.4 X 10^3 (1.8-7.8); NEUTROPHILS % (AUTO) 67 % (42-75); PLATELET COUNT 177 10^3/uL (130-400); RED BLOOD COUNT 3.64 10^6/uL (4.35-5.85); RED CELL DISTRIBUTION WIDTH 14.2 % (10.0-14.5); WHITE BLOOD COUNT 6.6 10^3/uL (4.3-11.0)
[2017-11-05 13:52] LABS: BASOPHILS % (AUTO) 0 % (0-10); EOSINOPHILS # (AUTO) 0.1 10^3/uL (0.0-0.3); EOSINOPHILS % (AUTO) 2 % (0-10); HEMATOCRIT 33 % (35-52); HEMOGLOBIN 10.1 G/DL (11.5-16.0); LYMPHOCYTES # (AUTO) 0.6 X 10^3 (1.0-4.0); LYMPHOCYTES % (AUTO) 9 % (12-44); MEAN CORPUSCULAR HEMOGLOBIN 29 PG (25-34); MEAN CORPUSCULAR HGB CONC 31 G/DL (32-36); MEAN CORPUSCULAR VOLUME 95 FL (80-99); MEAN PLATELET VOLUME 9.3 FL (7.4-10.4); MONOCYTES # (AUTO) 1.3 X 10^3 (0.0-1.0); MONOCYTES % (AUTO) 21 % (0-12); NEUTROPHILS # (AUTO) 4.1 X 10^3 (1.8-7.8); NEUTROPHILS % (AUTO) 68 % (42-75); PLATELET COUNT 181 10^3/uL (130-400); RED BLOOD COUNT 3.43 10^6/uL (4.35-5.85); RED CELL DISTRIBUTION WIDTH 15.3 % (10.0-14.5); WHITE BLOOD COUNT 6.1 10^3/uL (4.3-11.0)
[2017-11-05 14:15] LABS: ALBUMIN 3.5 GM/DL (3.2-4.5); BILIRUBIN,TOTAL 0.2 MG/DL (0.1-1.0); CALCIUM 9.4 MG/DL (8.5-10.1); CREATININE SERUM 3.77 MG/DL (0.60-1.30); POTASSIUM 5.1 MMOL/L (3.6-5.0)
[2017-11-20 13:10] LABS: BASOPHILS % (AUTO) 0 % (0-10); EOSINOPHILS # (AUTO) 0.3 10^3/uL (0.0-0.3); EOSINOPHILS % (AUTO) 4 % (0-10); HEMATOCRIT 31 % (35-52); HEMOGLOBIN 9.6 G/DL (11.5-16.0); LYMPHOCYTES # (AUTO) 0.9 X 10^3 (1.0-4.0); LYMPHOCYTES % (AUTO) 12 % (12-44); MEAN CORPUSCULAR HEMOGLOBIN 29 PG (25-34); MEAN CORPUSCULAR HGB CONC 31 G/DL (32-36); MEAN CORPUSCULAR VOLUME 93 FL (80-99); MEAN PLATELET VOLUME 9.7 FL (7.4-10.4); MONOCYTES # (AUTO) 0.9 X 10^3 (0.0-1.0); MONOCYTES % (AUTO) 11 % (0-12); NEUTROPHILS # (AUTO) 5.6 X 10^3 (1.8-7.8); NEUTROPHILS % (AUTO) 73 % (42-75); PLATELET COUNT 194 10^3/uL (130-400); RED BLOOD COUNT 3.33 10^6/uL (4.35-5.85); RED CELL DISTRIBUTION WIDTH 14.7 % (10.0-14.5); WHITE BLOOD COUNT 7.6 10^3/uL (4.3-11.0)
[~2017-12-04 11:21] MED LIST changes: +DARBEPOETIN 60 MCG/ML ARANESP (CANCER CTR) INJ SCH; +FULVESTRANT 250 MG/5 ML SYR (CANCER CENTER) IM SCH; -ROSU20TA30 PO; +ROSU20TA31 PO
[2017-12-04 11:43] LABS: BASOPHILS % (AUTO) 0 % (0-10); EOSINOPHILS # (AUTO) 0.7 10^3/uL (0.0-0.3); EOSINOPHILS % (AUTO) 9 % (0-10); HEMATOCRIT 31 % (35-52); HEMOGLOBIN 9.4 G/DL (11.5-16.0); LYMPHOCYTES # (AUTO) 1.1 X 10^3 (1.0-4.0); LYMPHOCYTES % (AUTO) 13 % (12-44); MEAN CORPUSCULAR HEMOGLOBIN 29 PG (25-34); MEAN CORPUSCULAR HGB CONC 30 G/DL (32-36); MEAN CORPUSCULAR VOLUME 95 FL (80-99); MEAN PLATELET VOLUME 9.7 FL (7.4-10.4); MONOCYTES # (AUTO) 1.1 X 10^3 (0.0-1.0); MONOCYTES % (AUTO) 14 % (0-12); NEUTROPHILS # (AUTO) 5.4 X 10^3 (1.8-7.8); NEUTROPHILS % (AUTO) 65 % (42-75); PLATELET COUNT 217 10^3/uL (130-400); RED BLOOD COUNT 3.29 10^6/uL (4.35-5.85); RED CELL DISTRIBUTION WIDTH 15.2 % (10.0-14.5); WHITE BLOOD COUNT 8.3 10^3/uL (4.3-11.0)
[2017-12-18 14:07] LABS: BASOPHILS % (AUTO) 0 % (0-10); EOSINOPHILS # (AUTO) 0.6 10^3/uL (0.0-0.3); EOSINOPHILS % (AUTO) 7 % (0-10); HEMATOCRIT 32 % (35-52); HEMOGLOBIN 9.6 G/DL (11.5-16.0); LYMPHOCYTES # (AUTO) 1.1 X 10^3 (1.0-4.0); LYMPHOCYTES % (AUTO) 13 % (12-44); MEAN CORPUSCULAR HEMOGLOBIN 29 PG (25-34); MEAN CORPUSCULAR HGB CONC 31 G/DL (32-36); MEAN CORPUSCULAR VOLUME 94 FL (80-99); MEAN PLATELET VOLUME 9.5 FL (7.4-10.4); MONOCYTES % (AUTO) 11 % (0-12); NEUTROPHILS # (AUTO) 5.8 X 10^3 (1.8-7.8); NEUTROPHILS % (AUTO) 68 % (42-75); PLATELET COUNT 203 10^3/uL (130-400); RED BLOOD COUNT 3.34 10^6/uL (4.35-5.85); RED CELL DISTRIBUTION WIDTH 15.8 % (10.0-14.5); WHITE BLOOD COUNT 8.5 10^3/uL (4.3-11.0)
== END 2017-12-18 13:52 | disposition home or self-care (01) ==
LOC: ONC 11:21
PROVIDERS: ATTEND Internal Medicine Hematology & Oncology
DX: C79.51 Secondary malignant neoplasm of bone (principal); C78.01 Secondary malignant neoplasm of right lung; C78.7 Secondary malignant neoplasm of liver and intrahepatic bile duct; Z85.3 Personal history of malignant neoplasm of breast; D63.1 Anemia in chronic kidney disease; N18.4 Chronic kidney disease, stage 4 (severe); I12.9 Hypertensive chronic kidney disease with stage 1 through stage 4 chronic kidney disease, or unspecified chronic kidney disease; E11.22 Type 2 diabetes mellitus with diabetic chronic kidney disease; Z66 Do not resuscitate; J44.9 Chronic obstructive pulmonary disease, unspecified; I25.10 Atherosclerotic heart disease of native coronary artery without angina pectoris; E78.5 Hyperlipidemia, unspecified; Z79.899 Other long term (current) drug therapy; Z92.3 Personal history of irradiation; Z92.21 Personal history of antineoplastic chemotherapy
CPT/HCPCS: 36415; 36591; 80053; 85025; 86300; 96372

== ENCOUNTER → 2018-01-14 | Outpatient (CLI) | payer MEDICARE ==
[~2018-01-14] MED LIST changes: -DARBEPOETIN 60 MCG/ML ARANESP (CANCER CTR) INJ SCH; -FULVESTRANT 250 MG/5 ML SYR (CANCER CENTER) IM SCH
[2018-01-14 14:28] LABS: BASOPHILS % (AUTO) 0 % (0-10); EOSINOPHILS # (AUTO) 0.3 10^3/uL (0.0-0.3); EOSINOPHILS % (AUTO) 4 % (0-10); HEMATOCRIT 29 % (35-52); HEMOGLOBIN 8.6 G/DL (11.5-16.0); LYMPHOCYTES # (AUTO) 0.8 X 10^3 (1.0-4.0); LYMPHOCYTES % (AUTO) 11 % (12-44); MEAN CORPUSCULAR HEMOGLOBIN 28 PG (25-34); MEAN CORPUSCULAR HGB CONC 30 G/DL (32-36); MEAN CORPUSCULAR VOLUME 93 FL (80-99); MEAN PLATELET VOLUME 9.4 FL (7.4-10.4); MONOCYTES # (AUTO) 0.9 X 10^3 (0.0-1.0); MONOCYTES % (AUTO) 13 % (0-12); NEUTROPHILS # (AUTO) 4.9 X 10^3 (1.8-7.8); NEUTROPHILS % (AUTO) 71 % (42-75); PLATELET COUNT 205 10^3/uL (130-400); RED BLOOD COUNT 3.07 10^6/uL (4.35-5.85); RED CELL DISTRIBUTION WIDTH 15.5 % (10.0-14.5)
[2018-01-14 14:45] LABS: ALBUMIN 3.5 GM/DL (3.2-4.5); CALCIUM 9.6 MG/DL (8.5-10.1); CREATININE SERUM 3.96 MG/DL (0.60-1.30); PHOSPHORUS 3.5 MG/DL (2.3-4.7); POTASSIUM 4.5 MMOL/L (3.6-5.0)
== END ==
LOC: LAB 13:56
PROVIDERS: ATTEND Internal Medicine Nephrology
DX: N18.4 Chronic kidney disease, stage 4 (severe) (principal); D63.1 Anemia in chronic kidney disease; I13.10 Hypertensive heart and chronic kidney disease without heart failure, with stage 1 through stage 4 chronic kidney disease, or unspecified chronic kidney disease; I50.9 Heart failure, unspecified; E78.5 Hyperlipidemia, unspecified; N25.0 Renal osteodystrophy; I25.10 Atherosclerotic heart disease of native coronary artery without angina pectoris; N13.9 Obstructive and reflux uropathy, unspecified; R80.9 Proteinuria, unspecified
CPT/HCPCS: 36415; 80069; 82306; 82570; 83970; 84156; 85025

== ENCOUNTER → 2018-02-17 | Outpatient (CLI) | payer MEDICARE ==
[2018-02-17 14:06] LABS: BASOPHILS % (AUTO) 0 % (0-10); EOSINOPHILS # (AUTO) 0.3 10^3/uL (0.0-0.3); EOSINOPHILS % (AUTO) 4 % (0-10); HEMATOCRIT 32 % (35-52); HEMOGLOBIN 9.6 G/DL (11.5-16.0); LYMPHOCYTES # (AUTO) 0.7 X 10^3 (1.0-4.0); LYMPHOCYTES % (AUTO) 10 % (12-44); MEAN CORPUSCULAR HEMOGLOBIN 28 PG (25-34); MEAN CORPUSCULAR HGB CONC 30 G/DL (32-36); MEAN CORPUSCULAR VOLUME 94 FL (80-99); MEAN PLATELET VOLUME 9.7 FL (7.4-10.4); MONOCYTES # (AUTO) 0.9 X 10^3 (0.0-1.0); MONOCYTES % (AUTO) 12 % (0-12); NEUTROPHILS # (AUTO) 5.4 X 10^3 (1.8-7.8); NEUTROPHILS % (AUTO) 74 % (42-75); PLATELET COUNT 218 10^3/uL (130-400); RED BLOOD COUNT 3.38 10^6/uL (4.35-5.85); RED CELL DISTRIBUTION WIDTH 16.1 % (10.0-14.5); WHITE BLOOD COUNT 7.4 10^3/uL (4.3-11.0)
[2018-02-17 14:43] LABS: ALBUMIN 3.4 GM/DL (3.2-4.5); CALCIUM 9.9 MG/DL (8.5-10.1); CREATININE SERUM 4.13 MG/DL (0.60-1.30); PHOSPHORUS 3.6 MG/DL (2.3-4.7); POTASSIUM 4.2 MMOL/L (3.6-5.0)
== END ==
LOC: LAB 13:22
PROVIDERS: ATTEND Internal Medicine Nephrology
DX: N18.4 Chronic kidney disease, stage 4 (severe) (principal); C50.919 Malignant neoplasm of unspecified site of unspecified female breast; E78.5 Hyperlipidemia, unspecified; N25.0 Renal osteodystrophy; I25.10 Atherosclerotic heart disease of native coronary artery without angina pectoris; I50.9 Heart failure, unspecified; I13.0 Hypertensive heart and chronic kidney disease with heart failure and stage 1 through stage 4 chronic kidney disease, or unspecified chronic kidney disease; N13.9 Obstructive and reflux uropathy, unspecified; R80.9 Proteinuria, unspecified; D63.1 Anemia in chronic kidney disease
CPT/HCPCS: 36415; 80069; 82306; 82570; 83970; 84156; 85025

== ENCOUNTER 2018-03-03 13:25 | Outpatient (RCR) | payer MEDICARE ==
[2017-12-31 13:35] LABS: BASOPHILS % (AUTO) 0 % (0-10); EOSINOPHILS # (AUTO) 0.5 10^3/uL (0.0-0.3); EOSINOPHILS % (AUTO) 6 % (0-10); HEMATOCRIT 31 % (35-52); HEMOGLOBIN 9.5 G/DL (11.5-16.0); LYMPHOCYTES # (AUTO) 0.9 X 10^3 (1.0-4.0); LYMPHOCYTES % (AUTO) 12 % (12-44); MEAN CORPUSCULAR HEMOGLOBIN 30 PG (25-34); MEAN CORPUSCULAR HGB CONC 30 G/DL (32-36); MEAN CORPUSCULAR VOLUME 98 FL (80-99); MEAN PLATELET VOLUME 9.9 FL (7.4-10.4); MONOCYTES # (AUTO) 1.3 X 10^3 (0.0-1.0); MONOCYTES % (AUTO) 17 % (0-12); NEUTROPHILS % (AUTO) 65 % (42-75); PLATELET COUNT 183 10^3/uL (130-400); RED BLOOD COUNT 3.22 10^6/uL (4.35-5.85); RED CELL DISTRIBUTION WIDTH 16.4 % (10.0-14.5); WHITE BLOOD COUNT 7.6 10^3/uL (4.3-11.0)
[2017-12-31 14:08] LABS: ALBUMIN 3.6 GM/DL (3.2-4.5); BILIRUBIN,TOTAL 0.3 MG/DL (0.1-1.0); CALCIUM 9.6 MG/DL (8.5-10.1); CREATININE SERUM 4.47 MG/DL (0.60-1.30); POTASSIUM 4.8 MMOL/L (3.6-5.0); TOTAL PROTEIN 7.5 GM/DL (6.4-8.2)
[~2018-03-03 13:25] MED LIST changes: +DARBEPOETIN 60 MCG/ML ARANESP (CANCER CTR) INJ SCH
[2018-03-03 13:50] LABS: BASOPHILS % (AUTO) 0 % (0-10); EOSINOPHILS # (AUTO) 0.3 10^3/uL (0.0-0.3); EOSINOPHILS % (AUTO) 4 % (0-10); HEMATOCRIT 34 % (35-52); HEMOGLOBIN 10.5 G/DL (11.5-16.0); LYMPHOCYTES # (AUTO) 0.8 X 10^3 (1.0-4.0); LYMPHOCYTES % (AUTO) 12 % (12-44); MEAN CORPUSCULAR HEMOGLOBIN 29 PG (25-34); MEAN CORPUSCULAR HGB CONC 31 G/DL (32-36); MEAN CORPUSCULAR VOLUME 95 FL (80-99); MEAN PLATELET VOLUME 9.8 FL (7.4-10.4); MONOCYTES # (AUTO) 0.9 X 10^3 (0.0-1.0); MONOCYTES % (AUTO) 12 % (0-12); NEUTROPHILS % (AUTO) 72 % (42-75); PLATELET COUNT 173 10^3/uL (130-400); RED BLOOD COUNT 3.58 10^6/uL (4.35-5.85); RED CELL DISTRIBUTION WIDTH 15.4 % (10.0-14.5); WHITE BLOOD COUNT 6.9 10^3/uL (4.3-11.0)
[2018-03-03 14:06] LABS: ALBUMIN 3.5 GM/DL (3.2-4.5); BILIRUBIN,TOTAL 0.3 MG/DL (0.1-1.0); CREATININE SERUM 4.47 MG/DL (0.60-1.30); POTASSIUM 4.8 MMOL/L (3.6-5.0); TOTAL PROTEIN 6.8 GM/DL (6.4-8.2)
[2018-03-17 13:36] LABS: BASOPHILS % (AUTO) 0 % (0-10); EOSINOPHILS # (AUTO) 0.4 10^3/uL (0.0-0.3); EOSINOPHILS % (AUTO) 5 % (0-10); HEMATOCRIT 34 % (35-52); HEMOGLOBIN 10.7 G/DL (11.5-16.0); LYMPHOCYTES # (AUTO) 0.8 X 10^3 (1.0-4.0); LYMPHOCYTES % (AUTO) 10 % (12-44); MEAN CORPUSCULAR HEMOGLOBIN 29 PG (25-34); MEAN CORPUSCULAR HGB CONC 32 G/DL (32-36); MEAN CORPUSCULAR VOLUME 93 FL (80-99); MEAN PLATELET VOLUME 9.9 FL (7.4-10.4); MONOCYTES # (AUTO) 0.8 X 10^3 (0.0-1.0); MONOCYTES % (AUTO) 11 % (0-12); NEUTROPHILS # (AUTO) 5.9 X 10^3 (1.8-7.8); NEUTROPHILS % (AUTO) 74 % (42-75); PLATELET COUNT 182 10^3/uL (130-400); RED BLOOD COUNT 3.65 10^6/uL (4.35-5.85); RED CELL DISTRIBUTION WIDTH 16.1 % (10.0-14.5)
== END 2018-03-17 10:11 | disposition home or self-care (01) ==
LOC: ONC 13:25
PROVIDERS: ATTEND Internal Medicine Hematology & Oncology
DX: C79.51 Secondary malignant neoplasm of bone (principal); C78.01 Secondary malignant neoplasm of right lung; C78.7 Secondary malignant neoplasm of liver and intrahepatic bile duct; Z85.3 Personal history of malignant neoplasm of breast; D63.1 Anemia in chronic kidney disease; N18.4 Chronic kidney disease, stage 4 (severe); I12.9 Hypertensive chronic kidney disease with stage 1 through stage 4 chronic kidney disease, or unspecified chronic kidney disease; E11.22 Type 2 diabetes mellitus with diabetic chronic kidney disease; Z66 Do not resuscitate; J44.9 Chronic obstructive pulmonary disease, unspecified; I25.10 Atherosclerotic heart disease of native coronary artery without angina pectoris; E78.5 Hyperlipidemia, unspecified; Z79.899 Other long term (current) drug therapy; Z92.3 Personal history of irradiation; Z92.21 Personal history of antineoplastic chemotherapy
CPT/HCPCS: 36415; 36591; 80053; 85025; 96372

== ENCOUNTER → 2018-03-17 | Outpatient (CLI) | payer MEDICARE ==
[~2018-03-17] MED LIST changes: -DARBEPOETIN 60 MCG/ML ARANESP (CANCER CTR) INJ SCH
== END ==
LOC: LAB 13:16
PROVIDERS: ATTEND Internal Medicine
DX: E83.52 Hypercalcemia (principal)
CPT/HCPCS: 36415; 82310

== ENCOUNTER → 2018-03-31 | Outpatient (CLI) | payer MEDICARE ==
[2018-03-31 12:24] LABS: CREATININE SERUM 4.16 MG/DL (0.60-1.30); POTASSIUM 4.7 MMOL/L (3.6-5.0)
== END ==
LOC: LAB 11:29
PROVIDERS: ATTEND Internal Medicine
DX: N18.5 Chronic kidney disease, stage 5 (principal)
CPT/HCPCS: 36415; 80048

== ENCOUNTER → 2018-04-14 | Outpatient (CLI) | payer MEDICARE ==
[2018-04-14 12:52] LABS: HEMOGLOBIN 10.9 G/DL (11.5-16.0); MEAN PLATELET VOLUME 9.5 FL (7.4-10.4); RED BLOOD COUNT 3.88 10^6/uL (4.35-5.85); RED CELL DISTRIBUTION WIDTH 15.4 % (10.0-14.5); WHITE BLOOD COUNT 6.8 10^3/uL (4.3-11.0)
[2018-04-14 13:07] LABS: ALBUMIN 3.6 GM/DL (3.2-4.5); CALCIUM 10.1 MG/DL (8.5-10.1); CREATININE SERUM 4.85 MG/DL (0.60-1.30); MAGNESIUM 2.4 MG/DL (1.8-2.4); PHOSPHORUS 4.2 MG/DL (2.3-4.7); POTASSIUM 4.4 MMOL/L (3.6-5.0)
== END ==
LOC: LAB 12:24
PROVIDERS: ATTEND Internal Medicine Nephrology
DX: I13.0 Hypertensive heart and chronic kidney disease with heart failure and stage 1 through stage 4 chronic kidney disease, or unspecified chronic kidney disease (principal); I50.9 Heart failure, unspecified; N18.4 Chronic kidney disease, stage 4 (severe); D63.1 Anemia in chronic kidney disease; E78.5 Hyperlipidemia, unspecified; N25.0 Renal osteodystrophy; I25.10 Atherosclerotic heart disease of native coronary artery without angina pectoris; N13.9 Obstructive and reflux uropathy, unspecified; R80.9 Proteinuria, unspecified
CPT/HCPCS: 36415; 80069; 82570; 83735; 83970; 84156

== ENCOUNTER → 2018-04-14 | Outpatient (CLI) | payer MEDICARE ==
[2018-04-14 12:50] LABS: BASOPHILS % (AUTO) 0 % (0-10); EOSINOPHILS # (AUTO) 0.2 10^3/uL (0.0-0.3); EOSINOPHILS % (AUTO) 3 % (0-10); HEMATOCRIT 35 % (35-52); HEMOGLOBIN 10.9 G/DL (11.5-16.0); LYMPHOCYTES # (AUTO) 0.7 X 10^3 (1.0-4.0); LYMPHOCYTES % (AUTO) 11 % (12-44); MEAN CORPUSCULAR HEMOGLOBIN 28 PG (25-34); MEAN CORPUSCULAR HGB CONC 31 G/DL (32-36); MEAN CORPUSCULAR VOLUME 91 FL (80-99); MEAN PLATELET VOLUME 9.5 FL (7.4-10.4); MONOCYTES # (AUTO) 0.9 X 10^3 (0.0-1.0); MONOCYTES % (AUTO) 12 % (0-12); NEUTROPHILS % (AUTO) 73 % (42-75); PLATELET COUNT 229 10^3/uL (130-400); RED BLOOD COUNT 3.88 10^6/uL (4.35-5.85); RED CELL DISTRIBUTION WIDTH 15.4 % (10.0-14.5); WHITE BLOOD COUNT 6.8 10^3/uL (4.3-11.0)
[2018-04-14 13:12] LABS: CALCIUM 10.1 MG/DL (8.5-10.1); CREATININE SERUM 4.85 MG/DL (0.60-1.30); POTASSIUM 4.4 MMOL/L (3.6-5.0)
== END ==
LOC: LAB 12:21
PROVIDERS: ATTEND Internal Medicine
DX: E83.52 Hypercalcemia (principal); J44.9 Chronic obstructive pulmonary disease, unspecified
CPT/HCPCS: 80048; 82306

== ENCOUNTER 2018-07-08 14:00 | Outpatient (RCR) | payer MEDICARE ==
[2018-07-07 14:55] LABS: HEMOGLOBIN 10.2 G/DL (11.5-16.0); MEAN PLATELET VOLUME 10.8 FL (7.4-10.4); WHITE BLOOD COUNT 15.5 10^3/uL (4.3-11.0)
[2018-07-07 15:06] LABS: ALBUMIN 3.7 GM/DL (3.2-4.5); CALCIUM 9.2 MG/DL (8.5-10.1); CREATININE SERUM 3.96 MG/DL (0.60-1.30); MAGNESIUM 1.9 MG/DL (1.8-2.4); PHOSPHORUS 2.8 MG/DL (2.3-4.7); POTASSIUM 3.3 MMOL/L (3.6-5.0)
[~2018-07-08 14:00] MED LIST changes: -ROSU20TA PO; +ROSU20TA2 PO
== END 2018-10-05 | disposition home or self-care (01) ==
LOC: LAB 14:00 → EDSTATUS 14:33
PROVIDERS: ATTEND Internal Medicine Nephrology
DX: I13.11 Hypertensive heart and chronic kidney disease without heart failure, with stage 5 chronic kidney disease, or end stage renal disease (principal); N18.5 Chronic kidney disease, stage 5; I50.9 Heart failure, unspecified; D63.1 Anemia in chronic kidney disease; R73.01 Impaired fasting glucose; E78.5 Hyperlipidemia, unspecified; N25.0 Renal osteodystrophy; I25.10 Atherosclerotic heart disease of native coronary artery without angina pectoris; N13.9 Obstructive and reflux uropathy, unspecified; R80.9 Proteinuria, unspecified
CPT/HCPCS: 36415; 80061; 80069; 82570; 82652; 83036; 83735; 83970; 84156; 85027

== ENCOUNTER 2018-08-04 10:21 | Outpatient (RCR) | payer MEDICARE ==
[~2018-08-04 10:21] MED LIST changes: +DARBEPOETIN 60 MCG/ML ARANESP (CANCER CTR) INJ SCH
[2018-08-04 10:38] LABS: BASOPHILS % (AUTO) 0 % (0-10); EOSINOPHILS # (AUTO) 0.1 10^3/uL (0.0-0.3); EOSINOPHILS % (AUTO) 1 % (0-10); HEMATOCRIT 30 % (35-52); HEMOGLOBIN 9.1 G/DL (11.5-16.0); LYMPHOCYTES # (AUTO) 1.1 X 10^3 (1.0-4.0); LYMPHOCYTES % (AUTO) 15 % (12-44); MEAN CORPUSCULAR HEMOGLOBIN 29 PG (25-34); MEAN CORPUSCULAR HGB CONC 30 G/DL (32-36); MEAN CORPUSCULAR VOLUME 95 FL (80-99); MEAN PLATELET VOLUME 10.3 FL (7.4-10.4); MONOCYTES % (AUTO) 14 % (0-12); NEUTROPHILS # (AUTO) 4.9 X 10^3 (1.8-7.8); NEUTROPHILS % (AUTO) 69 % (42-75); PLATELET COUNT 189 10^3/uL (130-400); RED CELL DISTRIBUTION WIDTH 14.5 % (10.0-14.5)
== END 2018-10-05 | disposition home or self-care (01) ==
LOC: ONC 10:21
PROVIDERS: ATTEND Internal Medicine Hematology & Oncology
DX: C79.51 Secondary malignant neoplasm of bone (principal); C78.01 Secondary malignant neoplasm of right lung; C78.7 Secondary malignant neoplasm of liver and intrahepatic bile duct; Z85.3 Personal history of malignant neoplasm of breast; D63.1 Anemia in chronic kidney disease; N18.4 Chronic kidney disease, stage 4 (severe); I12.9 Hypertensive chronic kidney disease with stage 1 through stage 4 chronic kidney disease, or unspecified chronic kidney disease; E11.22 Type 2 diabetes mellitus with diabetic chronic kidney disease; Z66 Do not resuscitate; J44.9 Chronic obstructive pulmonary disease, unspecified; I25.10 Atherosclerotic heart disease of native coronary artery without angina pectoris; E78.5 Hyperlipidemia, unspecified; Z79.899 Other long term (current) drug therapy; Z92.3 Personal history of irradiation; Z92.21 Personal history of antineoplastic chemotherapy
CPT/HCPCS: 36415; 85025; 96372; 99213

== ENCOUNTER → 2018-11-24 | Outpatient (CLI) | payer MEDICARE ==
[~2018-11-24] MED LIST changes: -DARBEPOETIN 60 MCG/ML ARANESP (CANCER CTR) INJ SCH
[2018-11-24 16:48] LABS: HEMOGLOBIN 8.4 G/DL (11.5-16.0); MEAN PLATELET VOLUME 9.3 FL (7.4-10.4); RED CELL DISTRIBUTION WIDTH 14.3 % (10.0-14.5); WHITE BLOOD COUNT 5.1 10^3/uL (4.3-11.0)
[2018-11-24 17:01] LABS: CALCIUM 10.3 MG/DL (8.5-10.1); CREATININE SERUM 5.54 MG/DL (0.60-1.30)
== END ==
LOC: LAB 16:32
PROVIDERS: ATTEND Internal Medicine
DX: N18.9 Chronic kidney disease, unspecified (principal); D63.1 Anemia in chronic kidney disease
CPT/HCPCS: 36415; 80048; 85027